=== PATIENT | female | born 1950 | race Caucasian/White ===

== ENCOUNTER → 2017-04-14 | Outpatient (CLI) | payer MEDICARE, BC | LOC: OD 10:05 | PROVIDERS: ATTEND Internal Medicine Nephrology | DX: E87.5 Hyperkalemia (principal) | CPT/HCPCS: 36415; 84132 ==

== ENCOUNTER → 2017-08-21 | Outpatient (CLI) | payer MEDICARE, BC ==
--- NOTE | 2017-08-22 18:20 | WOMENS IMAGING REPORT ---
EXAM DESCRIPTION: 3D SCREENING MAMMO BILAT COMPLETED DATE/TIME: 08/21/2017 8:49 am REASON FOR STUDY: ROUTINE SCREENING; Z12.31 Z12.31 ENCNTR SCREEN MAMMOGRAM FOR MALIGNANT NEOPLASM O F DARCY COMPARISON: Multiple since 2009 TECHNIQUE: Standard craniocaudal and mediolateral oblique views of each breast recorded using digita l acquisition and breast tomosynthesis. LIMITATIONS: None. FINDINGS: Findings present which are benign by mammographic criteria. No suspicious masses, calcifi cations or architectural distortion. Pertinent benign findings: Stable right intramammary lymph node upper outer quadrant, stable left darcy ast calcifications, benign Read with the assistance of CAD. .[facility] - R2 Cenova Version 1.3 .[facility] - R2 Cenova Version 1.3 .[facility] - R2 Cenova Version 2.4 .[facility] - R2 Cenova Version 2.4 .[facility] - R2 Head Cd Reactor Operator Version 9.2 Benign mammographic findings may include one or more of the following: Smooth masses, popcorn/rim/co arse calcifications, asymmetries, post-procedure changes, and lesions with long-standing stability. IMPRESSION: BENIGN MAMMOGRAPHIC FINDINGS. BIRADS 2 BREAST DENSITY: b. There are scattered areas of fibroglandular density. BIRAD: 2 BENIGN FINDING(S) RECOMMENDATION: RECOMMENDATION: ROUTINE SCREENING Please continue bilateral screening tomosynthesis in August 2018 COMMENT: The patient has been notified of the results by letter per SA requirements. Additional no tification policies are in place for contacting patient with suspicious or incomplete findings. Quality ID #[id number]: The [employer] recommends an annual screening mammogram for women aged 40 years or over. This facility utilizes a reminder system to ensure that all patients receive reminder letters, and/or direct phone calls for appointments. This includes reminders for routine scr eening mammograms, diagnostic mammograms, or other Breast Imaging Interventions when appropriate. Th is patient will be placed in the appropriate reminder system. The [employer] (ACR) has developed recommendations for screening MRI of the breast s in certain patient populations, to be used in conjunction with mammography. Breast MRI surveillanc e may be appropriate for women with more than 20% lifetime risk of developing breast cancer as deter mined by genetic testing, significant family history of the disease, or history of mantle radiation f or Hodgkins Disease. ACR Practice Guidelines 2008. DBT Technology DBT is a type of tomographic mammography. With conventional mammography, overlapping breast tissue ma y make lesions difficult to detect, even with good compression. DBT uses an x-ray tube that rotates a round the breast, taking images at different angles. These images are then combined to create thin sl ices of the breast that the radiologist can view as a 3D reconstruction. The Hologic unit can perform full-field digital mammograms (2D imaging); or DBT (3D imaging); or both, in a combination mode that quickly performs both the mammogram and the tomosynthesis scan while the breast is still compressed. PQRS 6045F: Fluoroscopic imaging is not utilized for breast tomosynthesis. TECHNICAL DOCUMENTATION: FINDING NUMBER: (1) ASSESSMENT: (1) JOB ID: [id number] [employer]- All Rights Reserved
== END ==
LOC: WI 08:00
PROVIDERS: ATTEND Physician Assistant
DX: Z12.31 Encounter for screening mammogram for malignant neoplasm of breast (principal)
CPT/HCPCS: 77063; 77067

== ENCOUNTER → 2018-08-24 | Outpatient (CLI) | payer MEDICARE, OTHER ==
--- NOTE | 2018-08-24 09:33 | WOMENS IMAGING REPORT ---
EXAM DESCRIPTION: BONE DENSITY HIP/SPINE COMPLETED DATE/TIME: 08/24/2018 9:09 am REASON FOR STUDY: ROUTINE 3D BILATERAL SCREENING,Z12.31, Z78.0 ASYMPTOMATIC MENOPAUSAL STATE Z12.31 ENCNTR SCREEN MAMMOGRAM FOR MALIGNANT NEOPLASM OF JAYRO Z78.0 ASYMPTOMATIC MENOPAUSAL STATE COMPARISON: None. TECHNIQUE: Dual-Energy X-ray Absorptiometry (DEXA) of the AP Spine and Hip. LIMITATIONS: None. FINDINGS: LUMBAR SPINE: The bone mineral density (BMD) measured from L1-L4 in the AP projection correlates with a T-score of 0.5, which is normal as defined by the World Health Organization. HIP: The bone mineral density (BMD) measured in the left hip correlates with a T-score of -1.6, which is o steopenia as defined by the World Health Organization. IMPRESSION: 1. LUMBAR SPINE: NORMAL. 2. HIP: OSTEOPENIA. COMMENT: The World Health Organization defines low BMD as follows: T-score: Normal: Greater than -1.0 Osteopenia: Between -1.0 and -2.5 Osteoporosis: Less than -2.5 without fractures Established osteoporosis: Less than -2.5 with fractures In general, you may wish to consider: Diagnosis Treatment Follow-up DEXA Normal BMD Prevention 2-3 years Osteopenia Prevention/Therapy 1-2 years Osteoporosis Therapy Yearly TECHNICAL DOCUMENTATION: JOB ID: [id number] [employer]- All Rights Reserved Reading location - IP/workstation name: [email or web address]
--- NOTE | 2018-08-24 11:04 | WOMENS IMAGING REPORT ---
EXAM DESCRIPTION: 3D SCREENING MAMMO BILAT COMPLETED DATE/TIME: 08/24/2018 9:09 am REASON FOR STUDY: ROUTINE 3D BILATERAL SCREENING,Z12.31 Z12.31 ENCNTR SCREEN MAMMOGRAM FOR MALIGNAN T NEOPLASM OF JAYRO Z78.0 ASYMPTOMATIC MENOPAUSAL STATE COMPARISON: [id number] TECHNIQUE: Standard craniocaudal and mediolateral oblique views of each breast recorded using digita l acquisition and breast tomosynthesis. LIMITATIONS: None. FINDINGS: No masses, calcifications or architectural distortion. No areas of suspicion. Read with the assistance of CAD. .[facility] - R2 Cenova Version 1.3 .[facility] - R2 Cenova Version 2.1 .[facility] - R2 Cenova Version 2.4 .[facility] [place] - R2 Cenova Version 2.4 .[facility] - R2 Senior Drupal Developer Version 9.2 IMPRESSION: NORMAL MAMMOGRAM. BIRADS 1. BREAST DENSITY: b. There are scattered areas of fibroglandular density. BIRAD: 1 NEGATIVE RECOMMENDATION: ROUTINE SCREENING COMMENT: The patient has been notified of the results by letter per SA requirements. Additional no tification policies are in place for contacting patient with suspicious or incomplete findings. Quality ID #[id number]: The [employer] recommends an annual screening mammogram for women aged 40 years or over. This facility utilizes a reminder system to ensure that all patients receive reminder letters, and/or direct phone calls for appointments. This includes reminders for routine scr eening mammograms, diagnostic mammograms, or other Breast Imaging Interventions when appropriate. Th is patient will be placed in the appropriate reminder system. The [employer] (ACR) has developed recommendations for screening MRI of the breast s in certain patient populations, to be used in conjunction with mammography. Breast MRI surveillanc e may be appropriate for women with more than 20% lifetime risk of developing breast cancer as deter mined by genetic testing, significant family history of the disease, or history of mantle radiation f or Hodgkins Disease. ACR Practice Guidelines 2008. DBT Technology DBT is a type of tomographic mammography. With conventional mammography, overlapping breast tissue ma y make lesions difficult to detect, even with good compression. DBT uses an x-ray tube that rotates a round the breast, taking images at different angles. These images are then combined to create thin sl ices of the breast that the radiologist can view as a 3D reconstruction. The Forseva unit can perform full-field digital mammograms (2D imaging); or DBT (3D imaging); or both, in a combination mode that quickly performs both the mammogram and the tomosynthesis scan while the breast is still compressed. PQRS 6045F: Fluoroscopic imaging is not utilized for breast tomosynthesis. TECHNICAL DOCUMENTATION: FINDING NUMBER: (1) ASSESSMENT: (1) JOB ID: [id number] [employer]- All Rights Reserved Reading location - IP/workstation name: [email or web address]
== END ==
LOC: WI 08:34
PROVIDERS: ATTEND Physician Assistant
DX: Z12.31 Encounter for screening mammogram for malignant neoplasm of breast (principal); Z78.0 Asymptomatic menopausal state; M85.88 Other specified disorders of bone density and structure, other site
CPT/HCPCS: 77063; 77067; 77080

== ENCOUNTER → 2019-07-22 | Outpatient (CLI) | payer MEDICARE, OTHER ==
--- NOTE | 2019-07-23 15:15 | XCELERA REPORT ---
[address] [address] Lower Extremity Arterial Evaluation Name: GUERO NOBLE Age: 69 yrs Gender: Female : 1950 Patient Status: Outpatient Patient Location: Study Date: 07/22/2019 02:49 PM Procedure: A color flow and duplex scan of the lower extremity arteries was performed bilaterally with velocity and waveform anaylsis. Ankle brachial indicies performed. Reason For Study: LT CALF ULCER Ordering Physician: CHIQUI SANTOS Performed By: Xavier Antoine Measurements and Calculations Right Left SLOT OPERATIONS DIRECTOR PSV 189.7 216.6 cm/sec Prox PFA PSV 124.3 110.6 cm/sec Prox SFA PSV 173.8 191.5 cm/sec Mid SFA PSV -117.3 -245.1cm/sec Dist SFA PSV -125.0 -232.4cm/sec Prox Pop A PSV 183.7 136.4 cm/sec Dist Pop A PSV -131.3 cm/sec Dist ROSA PSV 165.9 53.8 cm/sec Dist WEDDING CAKE DESIGNER PSV 157.1 -132.6cm/sec Rafael Pedis PSV 134.8 197.4 cm/sec Right Side Arterial Evaluation Normal velocity and triphasic waveforms noted from the Common Femoral artery to the Popliteal. Biphasic with normal velocity, moderate broadening in the infrageniculate arteries. Ankle Brachial index 1.19 in the Posterior Tibial, Non compressible Anterior Tibial. Left Side Arterial Evaluation Normal velocity and triphasic waveforms noted in the Common Femoral artery. Biphasic with high velocity, moderate broadening in the Femoral. Biphasic with normal velocity, moderate broadening in the infrageniculate arteries. Increased velocity in the Dorsalis Pedis. Ankle Brachial index non compressible. Interpretation Summary Moderate hemodynamically significant lesions in the bilateral lower extremities, on duplex imaging, at rest. Duplex study on the right is normal to the Popliteal, with moderate changes distally. Duplex study on the left is normal proximally, then stenosis probable in the Femoral,, with moderate changes distally. ASHANTI non compressibility suggests vessels wall stiffness due to calcification and or atherosclerosis. : CHIQUI SANTOS > Emerson Perera
== END ==
LOC: SP 14:15
PROVIDERS: ATTEND Nurse Practitioner Family
DX: L97.222 Non-pressure chronic ulcer of left calf with fat layer exposed (principal)
CPT/HCPCS: 93922; 93925

== ENCOUNTER → 2019-08-27 | Outpatient (CLI) | payer MEDICARE, OTHER ==
--- NOTE | 2019-08-27 09:58 | RADIOLOGY REPORT (SQ) ---
EXAM DESCRIPTION: TIBIA FIBULA LEFT COMPLETED DATE/TIME: 08/27/2019 9:40 am REASON FOR STUDY: NON-PRESSURE CHRONIC ULCER OF LEFT CALF W FAT LAYER EXPOSED L97.222 NON-PRESSURE CHRONIC ULCER OF LEFT CALF W FAT LAYER I87.312 CHRONIC VENOUS HYPERTENSION W ULCER OF L LOW EXTREM COMPARISON: None. NUMBER OF VIEWS: Two views. TECHNIQUE: AP and lateral views of the left tibia and fibula were obtained. LIMITATIONS: None. FINDINGS: MINERALIZATION: Normal. BONES: No acute fracture or erosion. SOFT TISSUES: Mild diffuse soft tissue swelling with bandage material anterior to the mid tibia. OTHER: Vascular calcifications. IMPRESSION: No acute osseous abnormality of the left tibia and fibula. TECHNICAL DOCUMENTATION: JOB ID: [id number] [employer]- All Rights Reserved Reading location - IP/workstation name: [email or web address]
[2019-08-27 10:22] LABS: ABSOLUTE EOSINOPHILS # (AUTO) 0.3 10^3/uL (0.0-0.6); ABSOLUTE LYMPHOCYTES (AUTO) 1.7 10^3/uL (0.5-4.7); ABSOLUTE MONOCYTES (AUTO) 0.5 10^3/uL (0.1-1.4); ABSOLUTE NEUT (AUTO) 4.3 10^3/uL (1.7-8.2); BASOPHILS % (AUTO) 0.3 % (0-2); EOSINOPHILS % (AUTO) 3.7 % (0-6); HEMATOCRIT 37.3 % (36.0-47.0); HEMOGLOBIN 12.5 g/dL (12.0-15.5); LYMPHOCYTES % (AUTO) 25.8 % (13-45); MEAN CORPUSCULAR HEMOGLOBIN 31.1 pg (27.0-33.4); MEAN CORPUSCULAR HGB CONC 33.5 g/dL (32.0-36.0); MEAN CORPUSCULAR VOLUME 93 fl (80-97); MONOCYTES % (AUTO) 6.9 % (3-13); PLATELET COUNT 332 10^3/uL (150-450); RED BLOOD COUNT 4.02 10^6/uL (3.72-5.28); RED CELL DISTRIBUTION WIDTH 14.9 % (11.5-14.0); SEGMENTED NEUTROPHILS % (AUTO) 63.3 % (42-78); TOTAL CELLS COUNTED % (AUTO) 100 %; WHITE BLOOD COUNT 6.7 10^3/uL (4.0-10.5)
[2019-08-27 10:50] LABS: ALKALINE PHOSPHATASE 61 U/L (38-126); ANION GAP 8 (5-19); ASPARTATE AMINO TRANSFERASE 32 U/L (14-36); BILIRUBIN,DIRECT 0.3 mg/dL (0.0-0.4); BILIRUBIN,TOTAL 0.4 mg/dL (0.2-1.3); BLOOD UREA NITROGEN 55 mg/dL (7-20); CALCIUM 9.5 mg/dL (8.4-10.2); CARBON DIOXIDE 32 mmol/L (22-30); CHLORIDE 99 mmol/L (98-107); GLUCOSE 155 mg/dL (75-110); POTASSIUM 5.3 mmol/L (3.6-5.0); TOTAL PROTEIN 7.4 g/dL (6.3-8.2)
[2019-08-27 10:58] LABS: C-REACTIVE PROTEIN < 5.0 mg/L (<10.0)
[2019-08-27 11:47] LABS: ERYTHROCYTE SEDIMENTATION RATE 50 mm/hr (0-30)
== END ==
LOC: WC 09:19
PROVIDERS: ATTEND Nurse Practitioner Family
DX: I87.312 Chronic venous hypertension (idiopathic) with ulcer of left lower extremity (principal); L97.222 Non-pressure chronic ulcer of left calf with fat layer exposed
CPT/HCPCS: 36415; 80053; 85025; 85652; 86140

== ENCOUNTER → 2020-02-09 | Outpatient (CLI) | payer MEDICARE, BC, OTHER ==
[2020-02-09 08:20] LABS: ABSOLUTE EOSINOPHILS # (AUTO) 0.2 10^3/uL (0.0-0.6); ABSOLUTE LYMPHOCYTES (AUTO) 1.6 10^3/uL (0.5-4.7); ABSOLUTE MONOCYTES (AUTO) 0.5 10^3/uL (0.1-1.4); ABSOLUTE NEUT (AUTO) 4.3 10^3/uL (1.7-8.2); BASOPHILS % (AUTO) 0.5 % (0-2); EOSINOPHILS % (AUTO) 3.5 % (0-6); HEMATOCRIT 36.8 % (36.0-47.0); HEMOGLOBIN 12.4 g/dL (12.0-15.5); MEAN CORPUSCULAR HEMOGLOBIN 30.9 pg (27.0-33.4); MEAN CORPUSCULAR HGB CONC 33.8 g/dL (32.0-36.0); MEAN CORPUSCULAR VOLUME 91 fl (80-97); MONOCYTES % (AUTO) 7.5 % (3-13); PLATELET COUNT 317 10^3/uL (150-450); RED BLOOD COUNT 4.03 10^6/uL (3.72-5.28); RED CELL DISTRIBUTION WIDTH 15.1 % (11.5-14.0); SEGMENTED NEUTROPHILS % (AUTO) 64.5 % (42-78); TOTAL CELLS COUNTED % (AUTO) 100 %; WHITE BLOOD COUNT 6.6 10^3/uL (4.0-10.5)
[2020-02-09 08:32] LABS: ALBUMIN 3.8 g/dL (3.5-5.0); ALKALINE PHOSPHATASE 61 U/L (38-126); ANION GAP 6 (5-19); ASPARTATE AMINO TRANSFERASE 27 U/L (14-36); BILIRUBIN,TOTAL 0.3 mg/dL (0.2-1.3); BLOOD UREA NITROGEN 70 mg/dL (7-20); C-REACTIVE PROTEIN 6.9 mg/L (<10.0); CALCIUM 9.7 mg/dL (8.4-10.2); CARBON DIOXIDE 31 mmol/L (22-30); CHLORIDE 100 mmol/L (98-107); GLUCOSE 143 mg/dL (75-110); TOTAL PROTEIN 6.9 g/dL (6.3-8.2)
[2020-02-09 08:58] LABS: ERYTHROCYTE SEDIMENTATION RATE 47 mm/hr (0-30)
== END ==
LOC: WC 07:28
PROVIDERS: ATTEND Nurse Practitioner Family
DX: I87.312 Chronic venous hypertension (idiopathic) with ulcer of left lower extremity (principal); L97.212 Non-pressure chronic ulcer of right calf with fat layer exposed
CPT/HCPCS: 36415; 80053; 85025; 85652; 86140

== ENCOUNTER 2020-03-19 17:12 | Emergency (ER) | payer MEDICARE, BC, OTHER ==
[2020-03-19 18:06] LABS: ABSOLUTE EOSINOPHILS # (AUTO) 0.2 10^3/uL (0.0-0.6); ABSOLUTE LYMPHOCYTES (AUTO) 1.4 10^3/uL (0.5-4.7); ABSOLUTE MONOCYTES (AUTO) 0.6 10^3/uL (0.1-1.4); ABSOLUTE NEUT (AUTO) 4.9 10^3/uL (1.7-8.2); BASOPHILS % (AUTO) 0.2 % (0-2); HEMATOCRIT 38.7 % (36.0-47.0); HEMOGLOBIN 12.9 g/dL (12.0-15.5); LYMPHOCYTES % (AUTO) 19.6 % (13-45); MEAN CORPUSCULAR HEMOGLOBIN 30.6 pg (27.0-33.4); MEAN CORPUSCULAR HGB CONC 33.4 g/dL (32.0-36.0); MEAN CORPUSCULAR VOLUME 92 fl (80-97); MONOCYTES % (AUTO) 8.4 % (3-13); PLATELET COUNT 311 10^3/uL (150-450); RED BLOOD COUNT 4.22 10^6/uL (3.72-5.28); RED CELL DISTRIBUTION WIDTH 14.9 % (11.5-14.0); SEGMENTED NEUTROPHILS % (AUTO) 68.8 % (42-78); TOTAL CELLS COUNTED % (AUTO) 100 %; WHITE BLOOD COUNT 7.2 10^3/uL (4.0-10.5)
[2020-03-19 18:21] LABS: ALBUMIN 4.1 g/dL (3.5-5.0); ALKALINE PHOSPHATASE 68 U/L (38-126); ANION GAP 7 (5-19); ASPARTATE AMINO TRANSFERASE 36 U/L (14-36); BILIRUBIN,DIRECT 0.3 mg/dL (0.0-0.4); BILIRUBIN,TOTAL 0.4 mg/dL (0.2-1.3); BLOOD UREA NITROGEN 50 mg/dL (7-20); CALCIUM 9.6 mg/dL (8.4-10.2); CARBON DIOXIDE 34 mmol/L (22-30); CHLORIDE 100 mmol/L (98-107); CREATINE KINASE 133 U/L (30-135); GLUCOSE 128 mg/dL (75-110); POTASSIUM 4.6 mmol/L (3.6-5.0); TOTAL PROTEIN 7.3 g/dL (6.3-8.2)
[2020-03-19 18:31] LABS: INTERNATIONAL RATION (INR) 1.02; PROTHROMBIN TIME 13.6 SEC (11.4-15.4)
[2020-03-19 18:32] LABS: CREATINE KINASE MB 5.59 ng/mL (<4.55)
[2020-03-19 18:35] LABS: TROPONIN I < 0.012 ng/mL
[2020-03-19 18:40] LABS: VENOUS BLOOD BASE EXCESS 2.6 mmol/L; VENOUS BLOOD HCO3 30.4 mmol/L (20-32); VENOUS BLOOD PCO2 61.1 mmHg (35-63); VENOUS BLOOD PH 7.31 (7.30-7.42)
[2020-03-19] MEDS ORDERED: DEXTROSE 50%-WATER 25 GM/50 ML DISP.SYRIN IV ONE (20:28)
--- NOTE | 2020-03-19 21:59 | EKG REPORT ---
SEVERITY:- NORMAL ECG - SINUS RHYTHM : Confirmed by: Alexis Eddy MD 19-Mar-2020 21:58:59
--- NOTE | 2020-03-19 23:10 | ER Document Report ---
ED General - General Chief Complaint: Anxiety Stated Complaint: PSYCH Time Seen by Provider: 03/19/20 18:15 Primary Care Provider: JOSE FARAH MD [Primary Care Provider] - Follow up as needed Mode of Arrival: Medic Information source: Patient Notes: 70-year-old woman presents to the emergency department with complaint of feeling like she is out of her body and tingling in her extremities. She is diabetic, family assumed that she had a low blood sugar, she was given 3 glucose tablets and some juice. Patient presents to the ER noted to have a low temperature and a blood sugar in the 130 range. Patient denies having any preceding symptoms or illness. Her medications have been adjusted as her doctor has added Victoza twice daily to her insulin regimen. The patient also notes that she had not eaten since breakfast prior to the onset of symptoms. Denies chest pain or stroke symptoms. She is placed on a warming blanket while labs EKG are being performed. TRAVEL OUTSIDE OF THE [place] IN LAST 30 DAYS: No - Related Data Allergies/Adverse Reactions: CHRISTOPHER Inhibitors [Christopher Inhibitors] Allergy (Severe, Verified 05/21/16 16:15) doxycycline [Doxycycline] Allergy (Severe, Verified 05/21/16 16:15) Past Medical History - Social History Smoking Status: Never Smoker Family History: Reviewed & Not Pertinent, DM, Hypertension, Thyroid Disfunction Patient has homicidal ideation: No - Past Medical History Cardiac Medical History: Reports: Hx Hypercholesterolemia, Hx Hypertension Pulmonary Medical History: Denies: Hx Tuberculosis Neurological Medical History: Denies: Hx Seizures Endocrine Medical History: Reports: Hx Diabetes Mellitus Type 2, Hx Hypothyro idism Renal/ Medical History: Reports: Hx End Stage Renal Disease - stg 3, Hx Renal Insufficiency Psychiatric Medical History: Denies: Hx Depression Past Surgical History: Reports: Hx Abdominal Surgery, Hx Orthopedic Surgery, Hx Tonsillectomy, Other - Right nephrectomy secondary to renal cell carcinoma in 1998. Denies: Hx Pacemaker - Immunizations Hx Diphtheria, Pertussis, Tetanus Vaccination: No - 15 years ago Hx Pneumococcal Vaccination: 12/12/08 Review of Systems - Review of Systems Notes: Constitutional: Negative for fever. HENT: Negative for sore throat. Eyes: Negative for visual changes. Cardiovascular: Negative for chest pain. Respiratory: Negative for shortness of breath. Gastrointestinal: Negative for abdominal pain, vomiting or diarrhea. Genitourinary: Negative for dysuria. Musculoskeletal: Negative for back pain. Skin: Negative for rash. Neurological: See HPI 10 point ROS negative except as marked above and in HPI. Physical Exam - Vital signs Vitals: Temp Pulse Resp BP Pulse Ox 94 F L 67 18 175/70 H 97 03/19/20 17:28 03/19/20 17:28 03/19/20 17:28 03/19/20 17:28 03/19/20 17:28 - Notes Notes: PHYSICAL EXAMINATION: Physical Exam: General: An overweight alert responsive 70-year-old woman no acute distress HEENT: NC/AT, pupils equal round and reactive to light, MM moist,nares clear, oropharynx clear, airway patent Neck: supple, no adenopathy, no masses. Good range of motion Lungs: clear, no wheezing, no rales no rhonchi CVS: Regular rate and rhythm no murmur gallop or rub Abdomen: Soft, active, nontender, no masses, no hepatosplenomegaly Ext: No edema, clubbing or cyanosis. Neuro: Alert and responsive, moving all 4 extremities on command, cranial nerves intact, no focal findings Skin: Intact no open lesions, no rash Course - Re-evaluation Re-evalutation: 03/19/20 23:13 The patient's temperature responded well to the warming blanket, back to a normal body temperature. Lab review notes no acute findings with chronic renal failure. No other acute findings. EKG normal sinus rhythm without acute ST or T wave abnormalities. Discussed the episode with the patient and her daughter noting that her increased diabetes regimen may have caused a decrease in the blood sugar especially given the lack of eating. I have suggested she each meal and then have a snack in between meals she is to also contact her primary physician on Friday regarding an adjustment in her insulin dose if needed. - Vital Signs Vital signs: Temp Pulse Resp BP Pulse Ox 98.0 F 67 24 H 175/60 H 92 03/19/20 21:02 03/19/20 17:28 03/19/20 22:31 03/19/20 22:31 03/19/20 22:31 - Laboratory Result Diagrams: 03/19/20 17:47 03/19/20 17:47 Laboratory results interpreted by me: 03/19/20 03/19/20 03/19/20 17:47 17:47 17:47 RDW 14.9 H Carbon Dioxide 34 H BUN 50 H Creatinine 2.39 H Est GFR ( Amer) 24 L Est GFR (MDRD) Non-Af 20 L Glucose 128 H POC Glucose CK-MB (CK-2) 5.59 H 03/19/20 21:27 RDW Carbon Dioxide BUN Creatinine Est GFR ( Amer) Est GFR (MDRD) Non-Af Glucose POC Glucose 283 H CK-MB (CK-2) 03/19/20 23:18 I have reviewed laboratory data and used this information for the treatment decisions regarding the patient. - EKG Interpretation by Me EKG shows normal: Sinus rhythm - EKG interpreted by Dr. Ellis: Normal sinus rhythm, rate 69, QT interval normal, normal axis, no acute ST or T wave abnormalities, no ischemic findings, compared to EKG 05/19/2016 there is no interval changes noted.. Discharge - Discharge Clinical Impression: Hypoglycemia, Obesity (BMI 30-39.9), CKD (chronic kidney disease), stage IV Hypothermia Qualifiers: Encounter type: initial encounter Qualified Code(s): T68.XXXA - Hypothermia, initial encounter Condition: Good Disposition: HOME, SELF-CARE Instructions: Hypoglycemia ([facility]) Additional Instructions: You were seen in the emergency department today with symptoms of hypoglycemia. Please hold your insulin dose tonight and resume your normal regimen tomorrow based on your a.m. glucose. You are encouraged to eat your normal meals with a snack in between and on Friday contact your regular physician regarding this hypoglycemic episode. If you have further difficulties or concerns you may return to the emergency department for a reevaluation. HOME CARE INSTRUCTIONS & INFORMATION: Thank you for choosing us for your medical needs. We hope you're satisfied with the care you received. After you leave, you must properly care for your problem and, at the same time, observe its progress. Any condition can change. Some illnesses can change rapidly over hours or days. If your condition worsens, return to the Emergency Department or see your physician promptly. ABOUT YOUR X-RAYS AND EKG'S: If you had an EKG or X-rays taken, they have been read by the Emergency Physician. The X-rays and EKG's will also be read by a Radiologist or Survey Chief within 24 hours. If discrepancies are noted, you will be notified by telephone. Please be certain the ED has a correct telephone number & address where you can be reached. Also, realize that some fractures or abnormalities do not show up on initial X-rays. If your symptoms continue, see your physician. ABOUT YOUR LABORATORY TEST: If you had laboratory tests, the results have been reviewed by the Emergency Physician. Some test results (for example cultures) may not be available for several days. You will be contacted if any test result shows you need additional treatment. Please be certain the ED has a correct telephone number and address where you can be reached. ABOUT YOUR MEDICATIONS: You will receive instructions on how to take your medicine on the prescription label you receive. Additional information may be provided by the Pharmacy. If you have questions afterwards, call the ED for clarification or further instructions. Some prescribed medications may cause drowsiness. Do not perform tasks such as driving a car or operating machinery without consulting your Pharmacist. If you feel you need a refill of pain medication, your condition will need re-evaluation. Please do not call for a refill of any medication. ABOUT YOUR SIGNATURE: Signature of this document acknowledges to followin. Understanding that you received emergency treatment and that you may be released before al medical problems are known or treated. Please be certain the ED has a correct phone number & address where you can be reached. 2. Acknowledgement that you will arrange for follow-up care as recommended. 3. Authorization for the Emergency Physician to provide information to your follow-up Physician in order to maximize your care. AT ANY TIME, IF YOUR SYMPTOMS CHANGE SIGNIFICANTLY OR WORSEN OR YOU DEVELOP NEW SYMPTOMS, RETURN TO THE EMERGENCY DEPARTMENT IMMEDIATELY FOR RE-EVALUATION. OUR GOAL IS TO PROVIDE EXCELLENT MEDICAL CARE! WE HOPE THAT WE HAVE MET YOUR EXPECTATIONS DURING YOUR EMERGENCY DEPARTMENT VIS IT AND THAT YOU FEEL YOU HAVE RECEIVED EXCELLENT CARE! Referrals: JOSE FARAH MD [Primary Care Provider] - Follow up as needed
[2020-03-19 23:22] VITALS: BP 190/88
== END 2020-03-19 23:29 | disposition home or self-care (01) ==
LOC: ER 17:12
DX: E11.649 Type 2 diabetes mellitus with hypoglycemia without coma (principal); Z79.4 Long term (current) use of insulin; T68.XXXA Hypothermia, initial encounter; X58.XXXA Exposure to other specified factors, initial encounter; E66.9 Obesity, unspecified; I12.9 Hypertensive chronic kidney disease with stage 1 through stage 4 chronic kidney disease, or unspecified chronic kidney disease; E11.22 Type 2 diabetes mellitus with diabetic chronic kidney disease; N18.4 Chronic kidney disease, stage 4 (severe); Z88.8 Allergy status to other drugs, medicaments and biological substances; Z88.1 Allergy status to other antibiotic agents
CPT/HCPCS: 93005; 99284; 96374; 36415; 87040; 82553; 82962; 82550; 83605; 85025; 85610; 80053; 84484; 82803; 93010; J3490

== ENCOUNTER 2020-04-14 23:02 | Inpatient (IN) | payer MEDICARE, BC, OTHER ==
--- NOTE | 2020-04-14 23:53 | ER Document Report ---
ED Cardiac - General Chief Complaint: Chest Pain Stated Complaint: CHEST PAIN Time Seen by Provider: 04/14/20 23:47 Primary Care Provider: JOSE FARAH MD [Primary Care Provider] - Follow up as needed Notes: Patient is a 70-year-old female with a history of diabetes, CHF, chronic kidney disease, and hypertension who presents emergency department with a chief complaint of chest pain and shortness of breath that started around 630 this morning. Patient states that she has been taking her medications as prescribed. States that it feels like someone is sitting on her chest. Patient received nitroglycerin via EMS and states that the pain is better. She also received anxiety medication. Patient has history of anxiety. Patient family deny any contact with anyone who has tested positive COVID-19. 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 Daughter also states that she has chronic sinusitis. TRAVEL OUTSIDE OF THE [place] IN LAST 30 DAYS: No - Related Data Allergies/Adverse Reactions: CHRISTOPHER Inhibitors [Christopher Inhibitors] Allergy (Severe, Verified 05/21/16 16:15) doxycycline [Doxycycline] Allergy (Severe, Verified 05/21/16 16:15) Past Medical History - Social History Smoking Status: Current Every Day Smoker Family History: Reviewed & Not Pertinent, DM, Hypertension, Thyroid Disfunction - Past Medical History Cardiac Medical History: Reports: Hx Hypercholesterolemia, Hx Hypertension Pulmonary Medical History: Denies: Hx Tuberculosis Neurological Medical History: Denies: Hx Seizures Endocrine Medical History: Reports: Hx Diabetes Mellitus Type 2, Hx Hypothyroidism Renal/ Medical History: Reports: Hx End Stage Renal Disease - stg 3, Hx Renal Insufficiency Psychiatric Medical History: Denies: Hx Depression Past Surgical History: Reports: Hx Abdominal Surgery, Hx Orthopedic Surgery, Hx Tonsillectomy, Other - Right nephrectomy secondary to renal cell carcinoma in 1998. Denies: Hx Pacemaker - Immunizations Hx Diphtheria, Pertussis, Tetanus Vaccination: No - 15 years ago Hx Pneumococcal Vaccination: 12/12/08 Review of Systems - Review of Systems Notes: REVIEW OF SYSTEMS: CONSTITUTIONAL : Denies recent illness. Denies recent unintentional weight loss. Denies fever, chills, or sweats. EENT: Denies eye, ear, throat, or mouth pain, discharge, or symptoms. Denies nasal or sinus congestion. CARDIOVASCULAR: See HPI. RESPIRATORY: See HPI. GASTROINTESTINAL: Denies nausea, vomiting, and diarrhea. Denies abdominal pain. Denies constipation. GENITOURINARY: Denies difficulty urinating, burning, blood in urine, urgency or frequency. MUSCULOSKELETAL: Denies neck and back pain. Denies joint pain or swelling. SKIN: Denies rash, itchiness, or lesions HEMATOLOGIC : Denies easy bruising or bleeding. LYMPHATIC: Denies swollen, painful, enlarged glands. NEUROLOGICAL: Denies no numbness or tingling denies weakness. Denies headache. Denies altered mental status. Denies alteration in speech. PSYCHIATRIC: Denies stress, anxiety, alteration in sleep patterns, or depression. All other systems reviewed and negative. Physical Exam - Vital signs Vitals: Resp BP Pulse Ox 27 H 162/56 H 89 L 04/14/20 23:19 04/14/20 23:19 04/14/20 23:19 - Notes Notes: PHYSICAL EXAMINATION: GENERAL: Appears obese, no acute distress. HEAD: Normocephalic, atraumatic. EYES: PERRL, conjunctiva normal, all extraocular movements intact, sclera nonicteric ENT: Moist mucous membranes. NECK: Supple, no noticeable swelling, redness, rash. Normal range of motion. LUNGS: Diminished breath sounds in the bases. Slightly tachypneic CARDIOVASCULAR: S1-S2, regular rate, regular rhythm. Radial pulses 2+, normal. ABDOMEN: Normoactive bowel sounds. Soft, nontender, no guarding, no rebound tenderness, and no masses palpated. EXTREMITIES: Normal strength and range of motion, no pitting or edema. No cyanosis. NEUROLOGICAL: Moves all extremities upon command. Strength 5/5 in all extremities. PSYCH: Normal mood, normal affect. SKIN: Warm, dry. No rash, lesions, ulcerations noted. Normal skin turgor. Course - Re-evaluation Re-evalutation: 04/15/20 00:38 Daughter reported to the nurses that the patient has been "talking out of her head." Daughter reports that patient had a possible urinary tract infection. We will send patient for CT of the head and will also send for urinalysis via straight cath. 04/15/20 03:25 Hematology is unremarkable other than a slight anemia with a hemoglobin of 11.7 hematocrit of 34.4. Blood gas showed that her PO2 was 71 on room air and her CO2 was 27.8. Chemistries show a creatinine of 1.96, which is her normal. BNP is elevated, consistent with a CHF exacerbation. Urinalysis is unremarkable. CT of the head shows sinus. Will place patient on Augmentin. Clarified with the daughter that the bleed behind her eye is an old bleed. Called Dr. Moore for admission. Will await callback. - Vital Signs Vital signs: Temp Pulse Resp BP Pulse Ox 98.3 F 72 29 H 143/50 H 95 04/15/20 03:22 04/15/20 03:22 04/15/20 03:22 04/15/20 03:22 04/15/20 03:22 - Laboratory Result Diagrams: 04/15/20 00:01 04/15/20 00:01 Laboratory results interpreted by me: 04/15/20 04/15/20 04/15/20 00:01 00:01 00:01 Hgb 11.7 L Hct 34.4 L RDW 15.0 H ABG pO2 ABG HCO3 ABG Total CO2 Sodium 134.7 L Carbon Dioxide 31 H BUN 47 H Creatinine 1.96 H Est GFR ( Amer) 31 L Est GFR (MDRD) Non-Af 25 L Glucose 265 H NT-Pro-B Natriuret Pep 1020 H Urine Protein Urine Glucose (UA) 04/15/20 04/15/20 01:00 01:40 Hgb Hct RDW ABG pO2 71.8 L ABG HCO3 26.5 H ABG Total CO2 27.8 H Sodium Carbon Dioxide BUN Creatinine Est GFR ( Amer) Est GFR (MDRD) Non-Af Glucose NT-Pro-B Natriuret Pep Urine Protein 30 H Urine Glucose (UA) >=500 H Discharge - Discharge Clinical Impression: Shortness of breath, Hypoxia CHF exacerbation Qualifiers: Heart failure type: unspecified Qualified Code(s): I50.9 - Heart failure, unspecified Sinusitis Qualifiers: Sinusitis location: unspecified location Chronicity: chronic Qualified Code(s): J32.9 - Chronic sinusitis, unspecified Condition: Stable Disposition: ADMITTED INPATIENT Admitting Provider: Oscar (Hospitalist) Unit Admitted: Telemetry Referrals: JOSE FARAH MD [Primary Care Provider] - Follow up as needed
[2020-04-15 00:19] LABS: ABSOLUTE EOSINOPHILS # (AUTO) 0.2 10^3/uL (0.0-0.6); ABSOLUTE LYMPHOCYTES (AUTO) 1.6 10^3/uL (0.5-4.7); ABSOLUTE MONOCYTES (AUTO) 0.6 10^3/uL (0.1-1.4); BASOPHILS % (AUTO) 0.6 % (0-2); EOSINOPHILS % (AUTO) 2.5 % (0-6); HEMATOCRIT 34.4 % (36.0-47.0); HEMOGLOBIN 11.7 g/dL (12.0-15.5); MEAN CORPUSCULAR HEMOGLOBIN 31.2 pg (27.0-33.4); MEAN CORPUSCULAR VOLUME 92 fl (80-97); MONOCYTES % (AUTO) 6.8 % (3-13); RED BLOOD COUNT 3.75 10^6/uL (3.72-5.28); SEGMENTED NEUTROPHILS % (AUTO) 71.1 % (42-78); TOTAL CELLS COUNTED % (AUTO) 100 %; WHITE BLOOD COUNT 8.5 10^3/uL (4.0-10.5)
[2020-04-15 00:36] LABS: ALBUMIN 3.5 g/dL (3.5-5.0); ALKALINE PHOSPHATASE 72 U/L (38-126); ANION GAP 6 (5-19); ASPARTATE AMINO TRANSFERASE 27 U/L (14-36); BILIRUBIN,DIRECT 0.3 mg/dL (0.0-0.4); BILIRUBIN,TOTAL 0.4 mg/dL (0.2-1.3); BLOOD UREA NITROGEN 47 mg/dL (7-20); CARBON DIOXIDE 31 mmol/L (22-30); CHLORIDE 98 mmol/L (98-107); CREATINE KINASE 114 U/L (30-135); GLUCOSE 265 mg/dL (75-110); NEONATAL BILIRUBIN RESULT 0.1 mg/dL (0.1-1.1); TOTAL PROTEIN 6.3 g/dL (6.3-8.2)
[2020-04-15 00:40] LABS: PLATELET COUNT 232 10^3/uL (150-450)
[2020-04-15 01:19] LABS: APPEARANCE,URINE CLEAR; BILIRUBIN,URINE NEGATIVE (NEGATIVE); COLOR,URINE STRAW; GLUCOSE, URINE >=500 mg/dL (NEGATIVE); KETONES,URINE NEGATIVE (NEGATIVE); PROTEIN,URINE 30 mg/dL (NEGATIVE); URINE SPECIFIC GRAVITY 1.007; UROBILINOGEN,URINE NEGATIVE mg/dL (<2.0)
[2020-04-15] MEDS ORDERED: BUMETANIDE INJ/PF 1 MG/4 ML SDV IV ONE (01:35)
[2020-04-15 01:47] LABS: ARTERIAL BLOOD BASE EXCESS 1.6 mmol/L; ARTERIAL BLOOD HCO3 26.5 mmol/L (20-24); ARTERIAL BLOOD O2 SATURATION 94.5 % (94-98); ARTERIAL BLOOD PCO2 43.2 mmHg (35-45); ARTERIAL BLOOD PH 7.41 (7.35-7.45); ARTERIAL BLOOD PO2 71.8 mmHg (80-100); ARTERIAL BLOOD TOTAL CO2 27.8 mmol/L (21-25)
[2020-04-15 01:48] LABS: ARTERIAL BLOOD FIO2 ROOM AIR
--- NOTE | 2020-04-15 03:03 | RADIOLOGY REPORT (SQ) ---
CLINICAL HISTORY: AMS COMPARISON: None. TECHNIQUE: CT HEAD WITHOUT IV CONTRAST on 04/15/2020 12:35 AM CDT This exam was performed according to our departmental dose-optimization program, which includes automated exposure control, adjustment of the mA and/or kV according to patient size and/or use of iterative reconstruction technique. FINDINGS: There is no acute hemorrhage, mass effect or midline shift. Bell-white differentiation is preserved. There is no hydrocephalus. There is no significant volume loss for age. The calvarium is intact. There is hyperdense appearance of the left globe. Bilateral maxillary sinus is opacified. Left sphenoid sinus is opacified. Anterior ethmoid air cells are opacified. Right frontal sinus is opacified. Mastoid air cells are clear. IMPRESSION: No acute intracranial findings. Hyperdense appearance of much of the left globe. Underlying hemorrhage is not excluded.
[2020-04-15] MEDS ORDERED: AMOXICILLIN TR/POT CLAVULANATE 875-125 MG TAB PO ONE (03:23)
[2020-04-15] MEDS ORDERED: MAGNESIUM HYDROXIDE SUSP 30 ML UDCUP PO PRN (04:56)
[2020-04-15] MEDS ORDERED: MAG HYDROX/AL HYDROX/SIMETH SUSP 30 ML UDCUP PO PRN (04:56)
[2020-04-15] MEDS ORDERED: ONDANSETRON HCL INJ/PF 4 MG/2 ML SDV IV PRN (04:56)
[2020-04-15] MEDS ORDERED: LORAZEPAM INJ 2 MG/1 ML VIAL IV PRN (05:02)
[2020-04-15] MEDS ORDERED: HYDRALAZINE HCL INJ/PF 20 MG/1 ML SDV IV PRN (05:02)
[2020-04-15] MEDS ORDERED: GUAIFENESIN SYRP 200 MG/10 ML UDC PO PRN (05:02)
[2020-04-15] MEDS ORDERED: METOPROLOL TARTRATE PF/INJ 5 MG/5 ML SDV IV PRN (05:02)
[2020-04-15] MEDS ORDERED: MORPHINE SULFATE 10 MG/ML INJ IV PRN (05:02)
[2020-04-15] MEDS ORDERED: ACETAMINOPHEN 325 MG TABLET PO PRN (05:02)
[2020-04-15] MEDS ORDERED: MELATONIN 5 MG TABLET PO PRN (05:02)
[2020-04-15] MEDS ORDERED: DEXTROSE 50%-WATER 25 GM/50 ML DISP.SYRIN IV PRN ×2 (05:03)
[2020-04-15] MEDS ORDERED: GLUCAGON,HUMAN RECOMB 1 MG INJ IM PRN (05:03)
[2020-04-15] MEDS ORDERED: DEXTROSE 40% GEL 15 GM TUBE PO PRN ×2 (05:03)
[2020-04-15] MEDS ORDERED: NITROGLYCERIN 2% OINTMENT 1 GM PACKET TP SCH (06:00)
[2020-04-15] MEDS: PANTOPRAZOLE SODIUM 40 MG TABLET.DR PO SCH (06:13)
[2020-04-15] MEDS: HEPARIN SOD (PORCINE) 5,000 UNIT/ML 1 ML VIAL SUBCUT SCH ×3 (06:14→22:12)
--- NOTE | 2020-04-15 06:25 | PDOC H&P ---
History of Present Illness Admission Date/PCP: 04/15/20 03:51 JOSE FARAH MD Patient complains of: Dyspnea History of Present Illness: GUERO NOBLE is a 70 year old female presents the emergency room with a 1 day history of dyspnea. The patient has mild vascular dementia and relies on her daughter to aid her in providing history. On 04/14/2020 the patient woke at 6:30 AM with dyspnea and moderate central chest heaviness which persisted off and on during the day and became more intense during the evening prompting her call to EMS. Patient was treated by EMS with an anxiolytic as well as being provided aspirin, oxygen and sublingual nitroglycerin with marked improvement in her symptoms becoming asymptomatic on arrival in the ER. Patient's cardiac enzymes and EKG showed no evidence of myocardial ischemia or injury. Her BNP was elevated without prior reference point. She was noted to be hypoxic on room air and required supplemental oxygen for correction. She was subsequently admitted to the hospital for further evaluation and treatment. Past Medical History Cardiac Medical History: Reports: Hyperlipidema, Hypertension Denies: Atrial Fibrillation, Coronary Artery Disease, DVT, Myocardial Infarction, Pulmonary Embolism Pulmonary Medical History: Denies: Asthma, Chronic Obstructive Pulmonary Disease (COPD), Respiratory Failure, Tuberculosis EENT Medical History: Reports: Other - Chronic sinusitis Denies: Ears - Hearing aids Neurological Medical History: Reports: Ischemic CVA Denies: Hemorrhagic CVA, Seizures Endocrine Medical History: Reports: Diabetes Mellitus Type 2, Hypothyroidism, Obesity Denies: Diabetes Mellitus Type 1, Hyperthyroidism Renal/ Medical History: Reports: Chronic Kidney Disease Denies: Nephrolithiasis Malignancy Medical History: Reports: Renal (Kidney) Cancer GI Medical History: Denies: Cirrhosis, Hepatitis Musculoskeltal Medical History: Denies: Fibromyalgia, Gout Skin Medical History: Denies: Eczema, Psoriasis Psychiatric Medical History: Reports: Dementia, General Anxiety Disorder Denies: Alcohol Dependency, Depression, Substance Abuse, Tobacco Dependency Traumatic Medical History: Reports: None Hematology: Reports: Anemia - Chronic due to renal failure Denies: Bleeding Tendencies Infectious Medical History: Reports: None Past Surgical History Past Surgical History: Reports: Orthopedic Surgery - Incision and drainage of foot abscess, Tonsillectomy, Other - Right nephrectomy secondary to renal cell c arcinoma in 1998 Social History Information Source: Relative Lives with: Family Smoking Status: Current Every Day Smoker Electronic Cigarette use?: No Frequency of Alcohol Use: None Hx Recreational Drug Use: No Drugs: None Hx Prescription Drug Abuse: No - Advance Directive Resuscitation Status: Full Code Surrogate healthcare decision maker:: Antonietta Noble Family History Family History: DM, Hypertension, Thyroid Disfunction Parental Family History Reviewed: Yes Children Family History Reviewed: No Sibling(s) Family History Reviewed.: Yes Medication/Allergy Home Medications: Aspirin [Aspirin 81 mg Chewable Tablet] 81 mg PO DAILY 12/13/11 Atorvastatin Calcium [Lipitor 40 mg Tablet] 40 mg PO QHS 12/13/11 Insulin Aspart [Novolog] 5 units SUBCUT ACHS 12/13/11 Insulin Glargine,Hum.rec.anlog [Lantus] 62 unit SQ QHS 12/13/11 Levothyroxine Sodium [Tirosint] 188 mcg PO DAILY 12/13/11 Losartan/Hydrochlorothiazide [Hyzaar 50-12.5 Tablet] 1 each PO DAILY 12/13/11 Fenofibrate Nanocrystallized [Tricor 145 mg Tablet] 145 mg PO DAILY tablet 05/23/16 Liraglutide [Victoza 2-Reinaldo] 1.8 mg SQ QAM 05/23/16 Allergies/Adverse Reactions: CHRISTOPHER Inhibitors [Christopher Inhibitors] Allergy (Severe, Verified 05/21/16 16:15) doxycycline [Doxycycline] Allergy (Severe, Verified 05/21/16 16:15) Review of Systems Constitutional: ABSENT: chills, fever(s) Eyes: ABSENT: visual disturbances, other - Eye pain Ears: ABSENT: hearing changes, other - Ear pain Nose, Mouth, and Throat: ABSENT: headache(s), sore throat Cardiovascular: PRESENT: as per HPI, chest pain. ABSENT: palpitations Respiratory: PRESENT: dyspnea. ABSENT: cough Gastrointestinal: ABSENT: abdominal pain, constipation, diarrhea, nausea, vomiting Genitourinary: ABSENT: dysuria, hematuria Musculoskeletal: ABSENT: joint swelling, muscle weakness Integumentary: ABSENT: pruritus, rash Neurological: PRESENT: confusion - Frequent, memory loss - Chronic short-term memory deficits. ABSENT: convulsions, focal weakness, syncope Psychiatric: PRESENT: anxiety. ABSENT: depression Endocrine: ABSENT: cold intolerance, heat intolerance Hematologic/Lymphatic: ABSENT: easy bleeding, easy bruising Allergic/Immunologic: PRESENT: other - Chronic sinusitis. ABSENT: seasonal rhinorrhea Physical Exam Vital Signs: Temp Pulse Resp BP Pulse Ox 98.3 F 72 21 H 142/50 H 98 04/15/20 03:22 04/15/20 03:22 04/15/20 04:01 04/15/20 04:00 04/15/20 04:01 General appearance: PRESENT: no acute distress, cooperative, morbidly obese Head exam: PRESENT: atraumatic, normocephalic Eye exam: PRESENT: conjunctiva pink. ABSENT: conjunctival injection, scleral icterus Ear exam: PRESENT: normal external ear exam. ABSENT: bleeding, drainage Mouth exam: PRESENT: dry mucosa, neck supple Neck exam: ABSENT: thyromegaly, tracheal deviation Respiratory exam: PRESENT: rales - Minimal bibasilar rales, symmetrical, unlabored Cardiovascular exam: PRESENT: RRR. ABSENT: clicks, gallop, rubs Pulses: PRESENT: normal radial pulses, +1 pedal pulses bilateral Vascular exam: PRESENT: normal capillary refill. ABSENT: pallor GI/Abdominal exam: PRESENT: normal bowel sounds, soft Rectal exam: PRESENT: deferred Extremities exam: PRESENT: pedal edema - Minimal. ABSENT: joint swelling Musculoskeletal exam: ABSENT: deformity, dislocation Neurological exam: PRESENT: alert, oriented to person Psychiatric exam: PRESENT: other - Pleasant and affable but confused Skin exam: PRESENT: dry, intact, warm. ABSENT: jaundice, rash, urticaria Results Laboratory Results: 04/15/20 00:01 04/15/20 00:01 04/15/20 04/15/20 04/15/20 00:01 00:01 01:00 WBC 8.5 RBC 3.75 Hgb 11.7 L Hct 34.4 L MCV 92 MCH 31.2 MCHC 34.0 RDW 15.0 H Plt Count 232 Seg Neutrophils % 71.1 Carbonic Acid HCO3/H2CO3 Ratio ABG pH ABG pCO2 ABG pO2 ABG HCO3 ABG O2 Saturation ABG Base Excess FiO2 Sodium 134.7 L Potassium 5.0 Chloride 98 Carbon Dioxide 31 H Anion Gap 6 BUN 47 H Creatinine 1.96 H Est GFR ( Amer) 31 L Glucose 265 H Calcium 9.0 Total Bilirubin 0.4 AST 27 Alkaline Phosphatase 72 Total Protein 6.3 Albumin 3.5 Urine Color STRAW Urine Appearance CLEAR Urine pH 6.0 Ur Specific [place] 1.007 Urine Protein 30 H Urine Glucose (UA) >=500 H Urine Ketones NEGATIVE Urine Blood NEGATIVE Urine RBC (Auto) 1 10/03/20 01:40 WBC RBC Hgb Hct MCV MCH MCHC RDW Plt Count Seg Neutrophils % Carbonic Acid 1.30 HCO3/H2CO3 Ratio 20:1 ABG pH 7.41 ABG pCO2 43.2 ABG pO2 71.8 L ABG HCO3 26.5 H ABG O2 Saturation 94.5 ABG Base Excess 1.6 FiO2 ROOM AIR Sodium Potassium Chloride Carbon Dioxide Anion Gap BUN Creatinine Est GFR ( Amer) Glucose Calcium Total Bilirubin AST Alkaline Phosphatase Total Protein Albumin Urine Color Urine Appearance Urine pH Ur Specific [place] Urine Protein Urine Glucose (UA) Urine Ketones Urine Blood Urine RBC (Auto) 04/15/20 04/15/20 04/15/20 00:01 00:01 00:01 Creatine Kinase 114 Troponin I < 0.012 NT-Pro-B Natriuret Pep 1020 H Impressions: Head CT 04/15/20 00:35 IMPRESSION: No acute intracranial findings. Hyperdense appearance of much of the left globe. Underlying hemorrhage is not excluded. Assessment and Plan - Diagnosis (1) Chest pain Qualifiers: Chest pain type: unspecified Qualified Code(s): R07.9 - Chest pain, unspecified Is this a current diagnosis for this admission?: Yes (2) Respiratory failure with hypoxia Qualifiers: Chronicity: unspecified Qualified Code(s): J96.91 - Respiratory failure, unspecified with hypoxia Is this a current diagnosis for this admission?: Yes (3) Morbid obesity with alveolar hypoventilation Is this a current diagnosis for this admission?: Yes (4) Chronic congestive heart failure Qualifiers: Heart failure type: unspecified Qualified Code(s): I50.9 - Heart failure, unspecified Is this a current diagnosis for this admission?: Yes (5) Diabetes mellitus type 2 in obese Is this a current diagnosis for this admission?: Yes (6) History of renal cell carcinoma Is this a current diagnosis for this admission?: Yes (7) CKD (chronic kidney disease), stage IV Is this a current diagnosis for this admission?: Yes (8) Hypertension Qualifiers: Hypertension type: essential hypertension Qualified Code(s): I10 - Essential (primary) hypertension Is this a current diagnosis for this admission?: Yes (9) Hyperlipidemia Qualifiers: Hyperlipidemia type: unspecified Qualified Code(s): E78.5 - Hyperlipidemia, unspecified Is this a current diagnosis for this admission?: Yes (10) Hypothyroidism Qualifiers: Hypothyroidism type: unspecified Qualified Code(s): E03.9 - Hypothyroidism, unspecified Is this a current diagnosis for this admission?: Yes - Plan Summary Summary: Patient will be admitted to the medical service where she will receive routine supportive and symptomatic cares. Serial cardiac enzymes will be obtained. She will receive supplemental oxygen via nasal cannula as needed for maintenance of an adequate oxygen saturation. Before meals and at bedtime Accu-Cheks will be performed with sliding scale insulin for hyperglycemia and a hypoglycemic protocol in place. Patient will use Ativan 1 mg IV every 4 hours as needed for anxiety or restlessness. She will use morphine sulfate 2 to 4 mg IV every 2 hours as needed for chest pain not responsive to nitroglycerin. She will receive Nitrol 2% ointment 1 g topically every 6 hours. A cardiology consultation will be obtained with Dr. Oakes. Patient will be on a cardiac and diabetic restricted diet. Patient's usual medications will be resumed, if appropriate, as soon as her medication list has been verified and reconciled. Victoza and Hyzaar should not be restarted as they are contraindicated in stage IV renal failure. Additional laboratory and/or radiographic evaluations will be obtained as needed. - Time Time Spent with patient: Less than 15 minutes Medications reviewed and adjusted accordingly: Yes Anticipated Discharge Disposition: Home with Home Health Anticipated Discharge Timeframe: within 72 hours - Inpatient Certification Based on my medical assessment, after consideration of the patient's comorbidities, presenting symptoms, or acuity I expect that the services needed warrant INPATIENT care.: Yes I certify that my determination is in accordance with my understanding of Medicare's requirements for reasonable and necessary INPATIENT services [42 CFR 412.3e].: Yes Medical Necessity: Significant Comorbidiites Make Outpatient Treatment Too Risky, Need Close Monitoring Due to Risk of Patient Decompensation, Need For Continuous Telemetry Monitoring
--- NOTE | 2020-04-15 06:32 | RADIOLOGY REPORT (SQ) ---
AP Portable chest: 04/15/2020 5:30 AM CDT History: 70-year old patient with chest pain, dyspnea. Comparison: Chest radiograph performed 05/22/2016. Findings: The cardiomediastinal silhouette is enlarged. No pneumothorax is seen. No discrete pleural effusion is apparent. There are minimal bibasilar airspace opacities which could reflect atelectasis. Impression: There are minimal bibasilar airspace opacities which may reflect atelectasis.
[2020-04-15 06:57] LABS: CREATINE KINASE MB 4.23 ng/mL (<4.55)
[2020-04-15 07:05] LABS: TROPONIN I < 0.012 ng/mL
--- NOTE | 2020-04-15 08:29 | EKG REPORT ---
SEVERITY:- NORMAL ECG - SINUS RHYTHM : Confirmed by: Alexis Eddy MD 15-Apr-2020 08:28:56
[2020-04-15] MEDS: CLONAZEPAM 1 MG TABLET PO SCH ×2 (09:33→22:12)
[2020-04-15] MEDS: DOCUSATE SODIUM 100 MG CAPSULE PO SCH ×2 (09:33→17:20)
[2020-04-15] MEDS: INSULIN REG, HUMAN 100 UNIT/ML 3 ML VIAL (PYX) SUBCUT PRN ×3 (09:34→17:17)
[2020-04-15] MEDS ORDERED: AMLODIPINE BESYLATE 2.5 MG TABLET PO SCH (13:00)
[2020-04-15 13:16] LABS: FREE T3 2.48 pg/mL (2.77-5.27); FREE T4 (FREE THYROXINE) 1.39 ng/dL (0.78-2.19)
[2020-04-15 13:29] LABS: THYROID STIMULATING HORMONE 2.49 uIU/mL (0.47-4.68)
[2020-04-15] MEDS: ASPIRIN 81 MG TABLET, CHEWABLE PO SCH (14:28)
[2020-04-15] MEDS: CARVEDILOL 12.5 MG TABLET PO SCH ×2 (14:28→22:11)
--- NOTE | 2020-04-15 16:40 | Progress Note ---
Provider Note Provider Note: Patient admitted early this morning for chest pain. EKG has been unremarkable, troponins negative thus far. Will monitor overnight and discharged with outpatient follow-up. She has been seen by Dr. Cowart here in the hospital and he will see her in his office.
[2020-04-15] MEDS: AMLODIPINE BESYLATE 2.5 MG TABLET PO SCH ×2 (17:20→22:12)
--- NOTE | 2020-04-15 21:04 | EKG REPORT ---
SEVERITY:- NORMAL ECG - SINUS RHYTHM : Confirmed by: Alexis Eddy MD 15-Apr-2020 21:04:40
[2020-04-15] MEDS: LOSARTAN POTASSIUM 50 MG TABLET PO SCH (22:15)
--- NOTE | 2020-04-15 23:07 | PDOC CONSULTATION ---
Consultation-Blank Consultation: CARDIOLOGY CONSULTATION by Dr. Kenzie Danielson on 04/15/2020. Patient seen at 1:30 PM. 60 minutes spent as patient with more than 50% of time spent in direct patient care. REASON FOR CONSULTATION: Patient with chest pressure. Patient multiple CAD risk factors. CONSULT REQUESTING PHYSICIAN: Dr. Esparza, [facility] HISTORY OF PRESENT ILLNESS: Patient is not a very good historian. She states that she came to the hospital because of shortness of breath orthopnea and also moderate chest pressure in the front of the chest which lasted for several hours since the morning of admission. She states it did not increase with exertion. She has a history of sleep apnea and has been intolerant to CPAP and hence does not wear it. There is no cough or wheezing. There is no palpitations, near- syncope syncope. There is no PND or leg edema. The patient's EKG x2 are normal and the cardiac enzymes are negative. Chest x-ray shows borderline evidence of heart failure. The patient has a history of hypertension and diabetes mellitus. There is no prior history of congestive heart failure or coronary artery disease or DE or anginal symptoms. Note that the patient is morbidly obese. Past Medical History Cardiac Medical History: Reports: Hyperlipidema, Hypertension Denies: Atrial Fibrillation, Coronary Artery Disease, DVT, Myocardial Infarction, Pulmonary Embolism Pulmonary Medical History: Denies: Asthma, Chronic Obstructive Pulmonary Disease (COPD), Respiratory Failure, Tuberculosis EENT Medical History: Reports: Other - Chronic sinusitis Denies: Ears - Hearing aids Neurological Medical History: Reports: Ischemic CVA Denies: Hemorrhagic CVA, Seizures Endocrine Medical History: Reports: Diabetes Mellitus Type 2, Hypothyroidism, Obesity Denies: Diabetes Mellitus Type 1, Hyperthyroidism Renal/ Medical History: Reports: Chronic Kidney Disease Denies: Nephrolithiasis Malignancy Medical History: Reports: Renal (Kidney) Cancer GI Medical History: Denies: Cirrhosis, Hepatitis Musculoskeltal Medical History: Denies: Fibromyalgia, Gout Skin Medical History: Denies: Eczema, Psoriasis Psychiatric Medical History: Reports: Dementia, General Anxiety Disorder Denies: Alcohol Dependency, Depression, Substance Abuse, Tobacco Dependency Traumatic Medical History: Reports: None Hematology: Reports: Anemia - Chronic due to renal failure Denies: Bleeding Tendencies Infectious Medical History: Reports: None Past Surgical History Past Surgical History: Reports: Orthopedic Surgery - Incision and drainage of foot abscess, Tonsillectomy, Other - Right nephrectomy secondary to renal cell carcinoma in 1998 Social History Information Source: Relative Lives with: Family Smoking Status: Current Every Day Smoker Electronic Cigarette use?: No Frequency of Alcohol Use: None Hx Recreational Drug Use: No Drugs: None Hx Prescription Drug Abuse: No - Advance Directive Resuscitation Status: Full Code Surrogate healthcare decision maker:: Antonietta Benitez Family History Family History: DM, Hypertension, Thyroid Disfunction Parental Family History Reviewed: Yes Children Family History Reviewed: No Sibling(s) Family History Reviewed.: Yes Medication/Allergy Home Medications: Aspirin [Aspirin 81 mg Chewable Tablet] 81 mg PO DAILY 12/13/11 Atorvastatin Calcium [Lipitor 40 mg Tablet] 40 mg PO QHS 12/13/11 Insulin Aspart [Novolog] 5 units SUBCUT ACHS 12/13/11 Insulin Glargine,Hum.rec.anlog [Lantus] 62 unit SQ QHS 12/13/11 Levothyroxine Sodium [Tirosint] 188 mcg PO DAILY 12/13/11 Losartan/Hydrochlorothiazide [Hyzaar 50-12.5 Tablet] 1 each PO DAILY 12/13/11 Fenofibrate Nanocrystallized [Tricor 145 mg Tablet] 145 mg PO DAILY tablet 05/23/16 Liraglutide [Victoza 2-Reinaldo] 1.8 mg SQ QAM 05/23/16 Allergies/Adverse Reactions: CHRISTOPHER Inhibitors [Christopher Inhibitors] Allergy (Severe, Verified 05/21/16 16:15) doxycycline [Doxycycline] Allergy (Severe, Verified 05/21/16 16:15) Resuscitation STATUS: Patient Is a Full Code. Her Is His Surrogate Healthcare Decision Maker. Current Medications Generic Name Dose Route Start Last Admin Trade Name Freq PRN Reason Stop Dose Admin Acetaminophen 650 mg 04/15/20 05:02 04/15/20 17:18 Tylenol 325 Mg Tablet PO 05/15/20 05:01 650 mg Q4HP PRN Administration For headache, pain or fever Al Hydrox/Mg Hydrox/Simethicone 30 ml 04/15/20 04:56 Maalox Plus Susp 30 Udcup PO 05/15/20 04:55 Q6HP PRN HEARTBURN Amlodipine Besylate 2.5 mg 04/15/20 14:00 04/15/20 22:12 Norvasc 2.5 Mg Tablet PO 05/15/20 13:59 2.5 mg Q12 JUJU Administration Aspirin 81 mg 04/15/20 13:00 04/15/20 14:28 Aspirin 81 Mg Chewable Tablet PO 05/15/20 12:59 81 mg DAILY JUJU Administration Carvedilol 25 mg 04/15/20 14:00 04/15/20 22:11 Coreg 12.5 Mg Tablet PO 05/15/20 13:59 25 mg Q12 JUJU Administration Clonazepam 0.5 mg 04/15/20 10:00 04/15/20 22:12 Klonopin 1 Mg Tablet PO 04/22/20 09:59 0.5 mg Q12H JUJU Administration Dextrose 12.5 gm 04/15/20 05:03 Dextrose Inj 50% Syringe (25 Gm/50 Ml) IV 05/15/20 05:02 PRN PRN FOR BG 50-69 IN ALERT PATIENT Protocol Dextrose 25 gm 04/15/20 05:03 Dextrose Inj 50% Syringe (25 Gm/50 Ml) IV 05/15/20 05:02 PRN PRN PER PROTOCOL Protocol Docusate Sodium 100 mg 04/15/20 10:00 04/15/20 17:20 Colace 100 Mg Capsule PO 05/15/20 09:59 Not Given BID JUJU Glucagon 1 mg 04/15/20 05:03 Glucagen Inj 1 Mg Vial IM 05/15/20 05:02 PRN PRN Evaluate for BG < 70 Protocol Glucose 15 gm 04/15/20 05:03 Glutose 40% Gel 15 Gm Tube PO 05/15/20 05:02 PRN PRN FOR BG 50-69 IN ALERT PATIENT Protocol Glucose 30 gm 04/15/20 05:03 Glutose 40% Gel 15 Gm Tube PO 05/15/20 05:02 PRN PRN FOR BG < 50 IN ALERT PATIENT Protocol Guaifenesin 200 mg 04/15/20 05:02 Robitussin Syrup 200 Mg/10 Ml Ud Cup PO 05/15/20 05:01 Q4HP PRN COUGH Heparin Sodium (Porcine) 5,000 unit 04/15/20 06:00 04/15/20 22:12 Heparin Inj 5,000 Units/Ml 1 Ml Vial SUBCUT 05/15/20 05:59 5,000 unit Q8 JUJU Administration Hydralazine HCl 20 mg 04/15/20 05:02 Apresoline Inj/Pf 20 Mg/1 Ml Sdv IV 05/15/20 05:01 Q4HP PRN Give For Sbp > 160 / Dbp > 100 Insulin Human Regular 0 - 15 unit 04/15/20 05:02 04/15/20 17:17 Humulin R (Pyxis) Insulin 100 Unit/Ml 3ml SUBCUT 05/15/20 05:01 7 unit ACHSP PRN Administration PER PROTOCOL Protocol Lorazepam 1 mg 04/15/20 05:02 Ativan Inj 2 Mg/1 Ml Vial IV 04/22/20 05:01 Q4HP PRN ANXIETY/AGITATION Losartan Potassium 50 mg 04/15/20 22:00 04/15/20 22:15 Cozaar 50 Mg Tablet PO 05/15/20 21:59 50 mg DAILY JUJU Administration Magnesium Hydroxide 30 ml 04/15/20 04:56 Milk Of Magnesia 30 Ml Udcup PO 05/15/20 04:55 HSP PRN FOR CONSTIPATION Melatonin 5 mg 04/15/20 05:02 Melatonin 5 Mg Tablet PO 05/15/20 05:01 HSP PRN SLEEP OR INSOMNIA Metoprolol Tartrate 5 mg 04/15/20 05:02 Lopressor Inj/Pf 5 Mg/5 Ml Sdv IV 05/15/20 05:01 Q4HP PRN Give For Sbp > 160 / Dbp > 100 Morphine Sulfate 2 - 4 mg 04/15/20 05:02 Morphine 10 Mg/Ml Inj IV 04/22/20 05:01 Q2HP PRN See protocol Protocol Ondansetron HCl 4 mg 04/15/20 04:56 Zofran Inj/Pf 4 Mg/2 Ml Sdv IV 05/15/20 04:55 Q4HP PRN FOR NAUSEA/VOMITING Pantoprazole Sodium 40 mg 04/15/20 06:00 04/15/20 06:[address] Tablet PO 05/15/20 05:59 40 mg Q6AM JUJU Administration Sodium Chloride 2.5 ml 04/15/20 06:00 04/15/20 22:12 Saline Flush 2.5 Ml Monoject Prefil Syrin IV 05/15/20 05:59 2.5 ml Q8 JUJU Administration Discontinued Medications Generic Name Dose Route Start Last Admin Trade Name Freq PRN Reason Stop Dose Admin Amlodipine Besylate 2.5 mg 04/15/20 13:00 Norvasc 2.5 Mg Tablet PO 05/15/20 12:59 Q12 JUJU Amoxicillin/Clavulanate Potassium 1 tab 04/15/20 03:23 04/15/20 03:26 Augmentin 875-125 Tablet PO 04/15/20 03:24 1 tab NOW ONE Administration Bumetanide 1 mg 04/15/20 01:35 04/15/20 01:53 Bumex Inj/Pf 1 Mg/4 Ml Sdv IV 04/15/20 01:36 1 mg NOW ONE Administration Nitroglycerin 1 gm 04/15/20 06:00 04/15/20 06:13 Nitrol 2% Ointment 1gm Packet TP 05/15/20 05:59 1 gm Q6 JUJU Administration Review of Systems Constitutional: ABSENT: chills, fever(s) Eyes: ABSENT: visual disturbances, other - Eye pain Ears: ABSENT: hearing changes, other - Ear pain Nose, Mouth, and Throat: ABSENT: headache(s), sore throat Cardiovascular: PRESENT: as per HPI, chest pain. ABSENT: palpitations Respiratory: PRESENT: dyspnea. ABSENT: cough Gastrointestinal: ABSENT: abdominal pain, constipation, diarrhea, nausea, vomiting Genitourinary: ABSENT: dysuria, hematuria Musculoskeletal: ABSENT: joint swelling, muscle weakness Integumentary: ABSENT: pruritus, rash Neurological: PRESENT: confusion - Frequent, memory loss - Chronic short-term memory deficits. ABSENT: convulsions, focal weakness, syncope Psychiatric: PRESENT: anxiety. ABSENT: depression Endocrine: ABSENT: cold intolerance, heat intolerance Hematologic/Lymphatic: ABSENT: easy bleeding, easy bruising Allergic/Immunologic: PRESENT: other - Chronic sinusitis. ABSENT: seasonal rhinorrhea Physical Exam the patient is morbidly obese. In no acute distress at present. She has no chest pain or shortness of breath at present. Selected Entries 04/15/20 11:48 Temperature 97.3 F Temperature Axillary Source Pulse Rate 70 Respiratory 16 Rate Blood Pressure 125/47 L Blood Pressure 73 Mean BP Location Right Arm BP Position Supine O2 Sat by Pulse 91 L Oximetry Oxygen Flow 1.00 Rate Oxygen Delivery Nasal Cannula Method HEAD: Is atraumatic normocephalic. EYES: Pupils are equal round regular reactive light accommodation. Extraocular movements are normal. There is no conjunctival pallor. There is no scleral icterus. EARS: Tympanic membranes are intact. External auditory canals are clear. NOSE: There is no deviated nasal septum. There is no inflammation nasal mucous membrane. MOUTH: Mucous membranes of mouth are moist. Tongue is moist. There is no ulcers. There is no bleeding from the gums. THROAT: There is no redness of the oropharynx there is no exudates. SKIN: There is no skin rashes. There is no petechia or ecchymosis. There is no skin lesions. NECK: Supple. There is no JVD. Carotids are equal there is no bruit. There is no lymphadenopathy. There is no goiter. There is no accessory muscle respiration use. Trachea central. LUNGS: Clear to auscultation percussion without any rhonchi rales or wheezing. HEART: S1-S2 is heard. There is no S3 gallop. There is no S4 gallop. There is systolic murmur left sternal border and the apex there is no rub. ABDOMEN: Is soft obese nontender. There is no hepatosplenomegaly. Bowel sounds are well heard. There is no masses. There is no tender areas. There is no rebound guarding or rigidity. EXTREMITIES: Femorals are deep. There is no femoral bruits. Femorals are slightly diminished. Leg pulses well felt. There is no DVT or cellulitis. There is no pedal edema. There is no cyanosis or clubbing. Capillary refill is normal. CAR CHECKER: The patient is conscious awake alert oriented x3 with no focal deficits. PSYCHIATRIC: The patient judgment site are intact her affect is normal. EKG x2 done yesterday and today is within normal limits. Labs- Entire Visit 04/15/20 04/15/20 04/15/20 00:01 00:01 00:01 WBC 8.5 RBC 3.75 Hgb 11.7 L Hct 34.4 L MCV 92 MCH 31.2 MCHC 34.0 RDW 15.0 H Plt Count 232 Lymph % (Auto) 19.0 Collin % (Auto) 6.8 Eos % (Auto) 2.5 Baso % (Auto) 0.6 Absolute Neuts (auto) 6.0 Absolute Lymphs (auto) 1.6 Absolute Monos (auto) 0.6 Absolute Eos (auto) 0.2 Absolute Basos (auto) 0.0 Seg Neutrophils % 71.1 Carbonic Acid HCO3/H2CO3 Ratio ABG pH ABG pCO2 ABG pO2 ABG HCO3 ABG Total CO2 ABG O2 Saturation ABG Base Excess FiO2 Sodium 134.7 L Potassium 5.0 Chloride 98 Carbon Dioxide 31 H Anion Gap 6 BUN 47 H Creatinine 1.96 H Est GFR ( Amer) 31 L Est GFR (MDRD) Non-Af 25 L Glucose 265 H POC Glucose Calcium 9.0 Total Bilirubin 0.4 Direct Bilirubin 0.3 Neonat Total Bilirubin 0.1 Neonat Direct Bilirubin 0.0 Neonat Indirect Bili 0.1 AST 27 ALT 26 Alkaline Phosphatase 72 Creatine Kinase 114 CK-MB (CK-2) Troponin I < 0.012 NT-Pro-B Natriuret Pep Total Protein 6.3 Albumin 3.5 TSH Free T4 Free T3 pg/mL Urine Color Urine Appearance Urine pH Ur Specific [place] Urine Protein Urine Glucose (UA) Urine Ketones Urine Blood Urine Nitrite (Reflex) Urine Bilirubin Urine Urobilinogen Leukocyte Esterase Rfl Urine RBC (Auto) Urine Bacteria (Auto) Urine WBC (Reflex) Squamous Epi Cells Auto Urine Ascorbic Acid 04/15/20 04/15/20 04/15/20 00:01 00:01 01:00 WBC RBC Hgb Hct MCV MCH MCHC RDW Plt Count Lymph % (Auto) [place]lin % (Auto) Eos % (Auto) Baso % (Auto) Absolute Neuts (auto) Absolute Lymphs (auto) Absolute Monos (auto) Absolute Eos (auto) Absolute Basos (auto) Seg Neutrophils % Carbonic Acid HCO3/H2CO3 Ratio ABG pH ABG pCO2 ABG pO2 ABG HCO3 ABG Total CO2 ABG O2 Saturation ABG Base Excess FiO2 Sodium Potassium Chloride Carbon Dioxide Anion Gap BUN Creatinine Est GFR ( Amer) Est GFR (MDRD) Non-Af Glucose POC Glucose Calcium Total Bilirubin Direct Bilirubin Neonat Total Bilirubin Neonat Direct Bilirubin Neonat Indirect Bili AST ALT Alkaline Phosphatase Creatine Kinase CK-MB (CK-2) Troponin I NT-Pro-B Natriuret Pep 1020 H Total Protein Albumin TSH 2.49 Free T4 1.39 Free T3 pg/mL 2.48 L Urine Color STRAW Urine Appearance CLEAR Urine pH 6.0 Ur Specific [place] 1.007 Urine Protein 30 H Urine Glucose (UA) >=500 H Urine Ketones NEGATIVE Urine Blood NEGATIVE Urine Nitrite (Reflex) NEGATIVE Urine Bilirubin NEGATIVE Urine Urobilinogen NEGATIVE Leukocyte Esterase Rfl NEGATIVE Urine RBC (Auto) 1 Urine Bacteria (Auto) TRACE Urine WBC (Reflex) 7 Squamous Epi Cells Auto <1 Urine Ascorbic Acid NEGATIVE 04/15/20 04/15/20 04/15/20 01:40 06:09 06:09 WBC RBC Hgb Hct MCV MCH MCHC RDW Plt Count Lymph % (Auto) [place] % (Auto) Eos % (Auto) Baso % (Auto) Absolute Neuts (auto) Absolute Lymphs (auto) Absolute Monos (auto) Absolute Eos (auto) Absolute Basos (auto) Seg Neutrophils % Carbonic Acid 1.30 HCO3/H2CO3 Ratio 20:1 ABG pH 7.41 ABG pCO2 43.2 ABG pO2 71.8 L ABG HCO3 26.5 H ABG Total CO2 27.8 H ABG O2 Saturation 94.5 ABG Base Excess 1.6 FiO2 ROOM AIR Sodium Potassium Chloride Carbon Dioxide Anion Gap BUN Creatinine Est GFR ( Amer) Est GFR (MDRD) Non-Af Glucose POC Glucose Calcium Total Bilirubin Direct Bilirubin Neonat Total Bilirubin Neonat Direct Bilirubin Neonat Indirect Bili AST ALT Alkaline Phosphatase Creatine Kinase 113 CK-MB (CK-2) 4.23 Troponin I < 0.012 NT-Pro-B Natriuret Pep Total Protein Albumin TSH Free T4 Free T3 pg/mL Urine Color Urine Appearance Urine pH Ur Specific [place] Urine Protein Urine Glucose (UA) Urine Ketones Urine Blood Urine Nitrite (Reflex) Urine Bilirubin Urine Urobilinogen Leukocyte Esterase Rfl Urine RBC (Auto) Urine Bacteria (Auto) Urine WBC (Reflex) Squamous Epi Cells Auto Urine Ascorbic Acid 04/15/20 04/15/20 04/15/20 08:14 11:48 15:53 WBC RBC Hgb Hct MCV MCH MCHC RDW Plt Count Lymph % (Auto) [place] % (Auto) Eos % (Auto) Baso % (Auto) Absolute Neuts (auto) Absolute Lymphs (auto) Absolute Monos (auto) Absolute Eos (auto) Absolute Basos (auto) Seg Neutrophils % Carbonic Acid HCO3/H2CO3 Ratio ABG pH ABG pCO2 ABG pO2 ABG HCO3 ABG Total CO2 ABG O2 Saturation ABG Base Excess FiO2 Sodium Potassium Chloride Carbon Dioxide Anion Gap BUN Creatinine Est GFR ( Amer) Est GFR (MDRD) Non-Af Glucose POC Glucose 196 H 222 H 291 H Calcium Total Bilirubin Direct Bilirubin Neonat Total Bilirubin Neonat Direct Bilirubin Neonat Indirect Bili AST ALT Alkaline Phosphatase Creatine Kinase CK-MB (CK-2) Troponin I NT-Pro-B Natriuret Pep Total Protein Albumin TSH Free T4 Free T3 pg/mL Urine Color Urine Appearance Urine pH Ur Specific [place] Urine Protein Urine Glucose (UA) Urine Ketones Urine Blood Urine Nitrite (Reflex) Urine Bilirubin Urine Urobilinogen Leukocyte Esterase Rfl Urine RBC (Auto) Urine Bacteria (Auto) Urine WBC (Reflex) Squamous Epi Cells Auto Urine Ascorbic Acid 04/15/20 20:39 WBC RBC Hgb Hct MCV MCH MCHC RDW Plt Count Lymph % (Auto) [place] % (Auto) Eos % (Auto) Baso % (Auto) Absolute Neuts (auto) Absolute Lymphs (auto) Absolute Monos (auto) Absolute Eos (auto) Absolute Basos (auto) Seg Neutrophils % Carbonic Acid HCO3/H2CO3 Ratio ABG pH ABG pCO2 ABG pO2 ABG HCO3 ABG Total CO2 ABG O2 Saturation ABG Base Excess FiO2 Sodium Potassium Chloride Carbon Dioxide Anion Gap BUN Creatinine Est GFR ( Amer) Est GFR (MDRD) Non-Af Glucose POC Glucose 298 H Calcium Total Bilirubin Direct Bilirubin Neonat Total Bilirubin Neonat Direct Bilirubin Neonat Indirect Bili AST ALT Alkaline Phosphatase Creatine Kinase CK-MB (CK-2) Troponin I NT-Pro-B Natriuret Pep Total Protein Albumin TSH Free T4 Free T3 pg/mL Urine Color Urine Appearance Urine pH Ur Specific [place] Urine Protein Urine Glucose (UA) Urine Ketones Urine Blood Urine Nitrite (Reflex) Urine Bilirubin Urine Urobilinogen Leukocyte Esterase Rfl Urine RBC (Auto) Urine Bacteria (Auto) Urine WBC (Reflex) Squamous Epi Cells Auto Urine Ascorbic Acid Head CT 04/15/20 00:35 IMPRESSION: No acute intracranial findings. Hyperdense appearance of much of the left globe. Underlying hemorrhage is not excluded. CHEST X-ray: Minimal bibasilar atelectasis. No evidence of heart failure. There is suggestion that there may be prominent pulmonary arteries? Pulmonary hypertension. This is my interpretation of the x-ray. IMPRESSION/RECOMMENDATION: 1. Chest pressure. Under orthopnea and shortness of breath. There is no definite evidence of myocardial infarction. The patient is EKG is normal. The patient does have multiple CAD risk factors. Hence would recommend strongly that the patient have an IV Lexiscan Cardiolite stress test as an outpatient. 2. Hypoxemia ,shortness of breath, and elevated NT BNP in a patient who has sleep apnea and does not wear CPAP. Most likely this is probably secondary to pulmonary hypertension.? Severity. Recommend starting the patient on a ARB since the patient is allergic to CHRISTOPHER inhibitor. This will also serve the purpose of renal protection. Also will start the patient on amlodipine. Would recommend outpatient echocardiogram to assess LV ejection fraction and pulmonary hypertension. 3. History of sleep apnea. Patient intolerant to CPAP. Would recommend that the patient try a nasal CPAP. This is been discussed with the patient patient's . 4. Hypertension: Blood pressure well controlled. 5. Diabetes mellitus. 6. Hypothyroidism: Continue thyroid replacement. 7. History of hyperlipidemia: Continue statin. 8. Most likely clinically the patient has pulmonary hypertension: Would recommend echocardiogram as outpatient to assess severity of pulmonary hypertension. 9. Morbid obesity: Medications reviewed. Medications added. Medical regimen and management plan discussed with attending provider Dr. Harper. Medical decision making is of high complexity. 60 minutes spent with patient more than 50% of time spent in direct patient care. Patient's cardiac status is stable. Hence we will discharge the patient home.
[2020-04-16] MEDS: HEPARIN SOD (PORCINE) 5,000 UNIT/ML 1 ML VIAL SUBCUT SCH (05:13)
[2020-04-16] MEDS: PANTOPRAZOLE SODIUM 40 MG TABLET.DR PO SCH (05:13)
[2020-04-16 05:28] LABS: HEMATOCRIT 33.8 % (36.0-47.0); HEMOGLOBIN 11.4 g/dL (12.0-15.5); MEAN CORPUSCULAR HEMOGLOBIN 30.9 pg (27.0-33.4); MEAN CORPUSCULAR HGB CONC 33.8 g/dL (32.0-36.0); MEAN CORPUSCULAR VOLUME 91 fl (80-97); PLATELET COUNT 254 10^3/uL (150-450); RED BLOOD COUNT 3.71 10^6/uL (3.72-5.28); RED CELL DISTRIBUTION WIDTH 15.1 % (11.5-14.0)
[2020-04-16 05:59] LABS: ANION GAP 10 (5-19); BLOOD UREA NITROGEN 53 mg/dL (7-20); CALCIUM 9.2 mg/dL (8.4-10.2); CARBON DIOXIDE 27 mmol/L (22-30); CHLORIDE 96 mmol/L (98-107); CHOLESTEROL 150.03 mg/dL (0-200); GLUCOSE 230 mg/dL (75-110); POTASSIUM 4.9 mmol/L (3.6-5.0); TRIGLYCERIDES 352 mg/dL (<150)
[2020-04-16 06:10] LABS: DIRECT LDL 60 mg/dL (<100)
[2020-04-16 06:19] LABS: VLDL CHOLESTEROL 70.4 mg/dL (10-31)
[2020-04-16] MEDS: INSULIN REG, HUMAN 100 UNIT/ML 3 ML VIAL (PYX) SUBCUT PRN ×2 (08:45→12:39)
[2020-04-16] MEDS: AMLODIPINE BESYLATE 2.5 MG TABLET PO SCH (09:59)
[2020-04-16] MEDS: CARVEDILOL 12.5 MG TABLET PO SCH (09:59)
[2020-04-16] MEDS: LOSARTAN POTASSIUM 50 MG TABLET PO SCH (10:00)
[2020-04-16] MEDS: ASPIRIN 81 MG TABLET, CHEWABLE PO SCH (10:00)
[2020-04-16] MEDS: DOCUSATE SODIUM 100 MG CAPSULE PO SCH (10:00)
[2020-04-16] MEDS: CLONAZEPAM 1 MG TABLET PO SCH (10:00)
--- NOTE | 2020-04-16 10:31 | CDI QUERY ---
CDI Query CDI Review: We are seeking further clarification of documentation to reflect the severity of illness of your patient. Per ED Notes: BNP is elevated, consistent with a CHF exacerbation CHF exacerbation Qualifiers: Heart failure type: unspecified Qualified Code(s): I50.9 - Heart failure, unspecified Per H&P: On 04/14/2020 the patient woke at 6:30 AM with dyspnea and moderate central chest heaviness which persisted off and on during the day and became more intense during the evening prompting her call to EMS. Chronic congestive heart failure Qualifiers: Heart failure type: unspecified Qualified Code(s): I50.9 - Heart failure, unspecified BNP 1020 Based on your medical judgement, can you further clarify in the Progress Notes: Type of heart failure: > Systolic > Diastolic > Combined systolic/diastolic > Other (please specify) > None of the above / Not applicable - AND Severity of heart failure > Acute, exacerbation, or decompensation > Chronic Acute on chronic > Other (please specify) > None of the above / Not applicable Thank you for your consideration. YEE Meredith RN Clinical Senior Automation Engineer Physician Advisor [email or web address]
[2020-04-16 12:26] VITALS: BP 143/50
--- NOTE | 2020-04-16 16:07 | PDOC DISCHARGE SUMMARY ---
Impression - Admit/DC Date/PCP Admission Date/Primary Care Provider: 04/15/20 03:51 JOSE FARAH MD Discharge Date: 04/16/20 - Discharge Diagnosis (1) Chest pain Is this a current diagnosis for this admission?: Yes (2) CKD (chronic kidney disease), stage IV Is this a current diagnosis for this admission?: Yes (3) Diabetes mellitus type 2 in obese Is this a current diagnosis for this admission?: Yes (4) Hyperlipidemia Is this a current diagnosis for this admission?: Yes (5) Hypertension Is this a current diagnosis for this admission?: Yes (6) Hypertriglyceridemia Is this a current diagnosis for this admission?: Yes (7) Hypothyroidism Is this a current diagnosis for this admission?: Yes (8) Morbid obesity with alveolar hypoventilation Is this a current diagnosis for this admission?: Yes - Assessment Summary: Patient will be admitted to the medical service where she will receive routine supportive and symptomatic cares. Serial cardiac enzymes will be obtained. She will receive supplemental oxygen via nasal cannula as needed for maintenance of an adequate oxygen saturation. Before meals and at bedtime Accu-Cheks will be performed with sliding scale insulin for hyperglycemia and a hypoglycemic protocol in place. Patient will use Ativan 1 mg IV every 4 hours as needed for anxiety or restlessness. She will use morphine sulfate 2 to 4 mg IV every 2 hours as needed for chest pain not responsive to nitroglycerin. She will receive Nitrol 2% ointment 1 g topically every 6 hours. A cardiology consultation will be obtained with Dr. Garcia. Patient will be on a cardiac and diabetic restricted diet. Patient's usual medications will be resumed, if appropriate, as soon as her medication list has been verified and reconciled. Victoza and Hyzaar should not be restarted as they are contraindicated in stage IV renal failure. Additional laboratory and/or radiographic evaluations will be obtained as needed. - Additional Information Resuscitation Status: Full Code Discharge Diet: Cardiac, Diabetic Discharge Activity: Activity As Tolerated Referrals: JOSE FARAH MD [Primary Care Provider] - Follow up as needed MATHEW GARCIA MD [ACTIVE STAFF] - (1 week) Prescriptions: Losartan Potassium [Cozaar 50 mg Tablet] 50 mg PO DAILY #30 tablet Amlodipine Besylate [Norvasc 2.5 mg Tablet] 2.5 mg PO Q12 #60 tablet Home Medications: Aspirin [Aspirin 81 mg Chewable Tablet] 81 mg PO QHS 12/13/11 Atorvastatin Calcium [Lipitor 40 mg Tablet] 40 mg PO QHS 12/13/11 Insulin Glargine,Hum.rec.anlog [Lantus] 70 unit SQ QHS 12/13/11 Fenofibrate Nanocrystallized [Tricor 145 mg Tablet] 145 mg PO DAILY tablet 05/23/16 Insulin Aspart [Novolog Flexpen] 0 unit SUBCUT .SLD SCALE 04/15/20 Levothyroxine Sodium [Synthroid] 175 mcg PO Q6AM 04/15/20 Amlodipine Besylate [Norvasc 2.5 mg Tablet] 2.5 mg PO Q12 #60 tablet 04/16/20 Carvedilol [Coreg 12.5 mg Tablet] 25 mg PO BID 04/16/20 Losartan Potassium [Cozaar 50 mg Tablet] 50 mg PO DAILY #30 tablet 04/16/20 History of Present Illiness History of Present Illness: GUERO NOBLE is a 70 year old female presents the emergency room with a 1 day history of dyspnea. The patient has mild vascular dementia and relies on her daughter to aid her in providing history. On 04/14/2020 the patient woke at 6:30 AM with dyspnea and moderate central chest heaviness which persisted off and on during the day and became more intense during the evening prompting her call to EMS. Patient was treated by EMS with an anxiolytic as well as being provided aspirin, oxygen and sublingual nitroglycerin with marked improvement in her symptoms becoming asymptomatic on arrival in the ER. Patient's cardiac enzymes and EKG showed no evidence of myocardial ischemia or injury. Her BNP was elevated without prior reference point. She was noted to be hypoxic on room air and required supplemental oxygen for correction. She was subsequently admitted to the hospital for further evaluation and treatment. Hospital Course Hospital Course: It was previously mentioned that this patient has a CHF exacerbation. This patient did not have a CHF exacerbation during this hospitalization. CHF had nothing to do with her presentation. She was chest pain-free and her enzymes trended out negative. She had a normal EKG. She was seen in consultation by Dr. Garcia who added some blood pressure medication and plans to have her follow-up in the office for an echocardiogram and a stress test. Her labs and examination were reassuring and she was discharged in stable condition. Physical Exam Vital Signs: Temp Pulse Resp BP Pulse Ox 97.5 F 66 19 143/50 H 95 04/16/20 12:24 04/16/20 12:24 04/16/20 12:24 04/16/20 12:24 04/16/20 12:24 Intake & Output 04/15/20 04/16/20 04/17/20 06:59 06:59 06:59 Intake Total 540 450 Balance 540 450 Weight 129 kg 129 kg 129 kg General appearance: PRESENT: no acute distress, cooperative, disheveled, mo rbidly obese Respiratory exam: PRESENT: clear to auscultation stephanie, symmetrical, unlabored. ABSENT: accessory muscle use, chest wall tenderness, crackles, prolonged expiratory phas, rhonchi, tachypnea, wheezes Cardiovascular exam: PRESENT: RRR, +S1, +S2 Pulses: PRESENT: normal carotid pulses Vascular exam: PRESENT: normal capillary refill GI/Abdominal exam: PRESENT: normal bowel sounds, soft. ABSENT: distended, guarding, rebound, tenderness Extremities exam: ABSENT: clubbing, pedal edema Musculoskeletal exam: PRESENT: normal inspection. ABSENT: deformity Neurological exam: PRESENT: alert, awake, oriented to person, oriented to place, oriented to situation Psychiatric exam: PRESENT: appropriate affect, normal mood Skin exam: PRESENT: dry, warm Results Laboratory Results: WBC 6.0 10^3/uL (4.0-10.5) 04/16/20 04:48 RBC 3.71 10^6/uL (3.72-5.28) L 04/16/20 04:48 Hgb 11.4 g/dL (12.0-15.5) L 04/16/20 04:48 Hct 33.8 % (36.0-47.0) L 04/16/20 04:48 MCV 91 fl (80-97) 04/16/20 04:48 MCH 30.9 pg (27.0-33.4) 04/16/20 04:48 MCHC 33.8 g/dL (32.0-36.0) 04/16/20 04:48 RDW 15.1 % (11.5-14.0) H 04/16/20 04:48 Plt Count 254 10^3/uL (150-450) 04/16/20 04:48 Lymph % (Auto) 19.0 % (13-45) 04/15/20 00:01 Anderson % (Auto) 6.8 % (3-13) 04/15/20 00:01 Eos % (Auto) 2.5 % (0-6) 04/15/20 00:01 Baso % (Auto) 0.6 % (0-2) 04/15/20 00:01 Absolute Neuts (auto) 6.0 10^3/uL (1.7-8.2) 04/15/20 00:01 Absolute Lymphs (auto) 1.6 10^3/uL (0.5-4.7) 04/15/20 00:01 Absolute Monos (auto) 0.6 10^3/uL (0.1-1.4) 04/15/20 00:01 Absolute Eos (auto) 0.2 10^3/uL (0.0-0.6) 04/15/20 00:01 Absolute Basos (auto) 0.0 10^3/uL (0.0-0.2) 04/15/20 00:01 Seg Neutrophils % 71.1 % (42-78) 04/15/20 00:01 Carbonic Acid 1.30 mmol/L (1.05-1.35) 04/15/20 01:40 HCO3/H2CO3 Ratio 20:1 04/15/20 01:40 ABG pH 7.41 (7.35-7.45) 04/15/20 01:40 ABG pCO2 43.2 mmHg (35-45) 04/15/20 01:40 ABG pO2 71.8 mmHg (80-100) L 04/15/20 01:40 ABG HCO3 26.5 mmol/L (20-24) H 04/15/20 01:40 ABG Total CO2 27.8 mmol/L (21-25) H 04/15/20 01:40 ABG O2 Saturation 94.5 % (94-98) 04/15/20 01:40 ABG Base Excess 1.6 mmol/L 04/15/20 01:40 FiO2 ROOM AIR 04/15/20 01:40 Sodium 133.1 mmol/L (137-145) L 04/16/20 04:48 Potassium 4.9 mmol/L (3.6-5.0) 04/16/20 04:48 Chloride 96 mmol/L (98-107) L 04/16/20 04:48 Carbon Dioxide 27 mmol/L (22-30) 04/16/20 04:48 Anion Gap 10 (5-19) 04/16/20 04:48 BUN 53 mg/dL (7-20) H 04/16/20 04:48 Creatinine 2.38 mg/dL (0.52-1.25) H 04/16/20 04:48 Est GFR ( Amer) 24 (>60) L 04/16/20 04:48 Est GFR (MDRD) Non-Af 20 (>60) L 04/16/20 04:48 Glucose 230 mg/dL (75-110) H 04/16/20 04:48 POC Glucose 252 mg/dL (70-110) H 04/16/20 11:28 Hemoglobin A1c % 7.5 % (4.7-6.0) H 04/16/20 04:48 Calcium 9.2 mg/dL (8.4-10.2) 04/16/20 04:48 Magnesium 2.0 mg/dL (1.6-2.3) 04/16/20 04:48 Total Bilirubin 0.4 mg/dL (0.2-1.3) 04/15/20 00:01 Direct Bilirubin 0.3 mg/dL (0.0-0.4) 04/15/20 00:01 Neonat Total Bilirubin 0.1 mg/dL (0.1-1.1) 04/15/20 00:01 Neonat Direct Bilirubin 0.0 mg/dL (0.0-0.3) 04/15/20 00:01 Neonat Indirect Bili 0.1 mg/dL (0.0-1.1) 04/15/20 00:01 AST 27 U/L (14-36) 04/15/20 00:01 ALT 26 U/L (<35) 04/15/20 00:01 Alkaline Phosphatase 72 U/L (38-126) 04/15/20 00:01 Creatine Kinase 113 U/L (30-135) 04/15/20 06:09 CK-MB (CK-2) 4.23 ng/mL (<4.55) 04/15/20 06:09 Troponin I < 0.012 ng/mL 04/15/20 06:09 NT-Pro-B Natriuret Pep 1020 pg/mL (<125) H 04/15/20 00:01 Total Protein 6.3 g/dL (6.3-8.2) 04/15/20 00:01 Albumin 3.5 g/dL (3.5-5.0) 04/15/20 00:01 Triglycerides 352 mg/dL (<150) H 04/16/20 04:48 Cholesterol 150.03 mg/dL (0-200) 04/16/20 04:48 LDL Cholesterol Direct 60 mg/dL (<100) 04/16/20 04:48 VLDL Cholesterol 70.4 mg/dL (10-31) H 04/16/20 04:48 HDL Cholesterol 37 mg/dL (>40) L 04/16/20 04:48 TSH 3.85 uIU/mL (0.47-4.68) 04/16/20 04:48 Free T4 1.39 ng/dL (0.78-2.19) 04/15/20 00:01 Free T3 pg/mL 2.48 pg/mL (2.77-5.27) L 04/15/20 00:01 Urine Color STRAW 04/15/20 01:00 Urine Appearance CLEAR 04/15/20 01:00 Urine pH 6.0 (5.0-9.0) 04/15/20 01:00 Ur Specific [place] 1.007 04/15/20 01:00 Urine Protein 30 mg/dL (NEGATIVE) H 04/15/20 01:00 Urine Glucose (UA) >=500 mg/dL (NEGATIVE) H 04/15/20 01:00 Urine Ketones NEGATIVE mg/dL (NEGATIVE) 04/15/20 01:00 Urine Blood NEGATIVE (NEGATIVE) 04/15/20 01:00 Urine Nitrite (Reflex) NEGATIVE (NEGATIVE) 04/15/20 01:00 Urine Bilirubin NEGATIVE (NEGATIVE) 04/15/20 01:00 Urine Urobilinogen NEGATIVE mg/dL (<2.0) 04/15/20 01:00 Leukocyte Esterase Rfl NEGATIVE (NEGATIVE) 04/15/20 01:00 Urine RBC (Auto) 1 /HPF 04/15/20 01:00 Urine Bacteria (Auto) TRACE /HPF 04/15/20 01:00 Urine WBC (Reflex) 7 /HPF 04/15/20 01:00 Squamous Epi Cells Auto <1 /HPF 04/15/20 01:00 Urine Ascorbic Acid NEGATIVE (NEGATIVE) 04/15/20 01:00 04/15/20 04/15/20 04/15/20 00:01 00:01 06:09 CK-MB (CK-2) 4.23 Troponin I < 0.012 < 0.012 NT-Pro-B Natriuret Pep 1020 H Impressions: Head CT 04/15/20 00:35 IMPRESSION: No acute intracranial findings. Hyperdense appearance of much of the left globe. Underlying hemorrhage is not excluded. Plan Time Spent: Greater than 30 Minutes Stroke Is this a Stroke Patient?: No Acute Heart Failure Is this a Heart Failure Patient?: No
== END 2020-04-16 13:09 | disposition home or self-care (01) | DRG 313 ==
LOC: ER 23:02 → EH 04-15 03:51 → 5 04-15 05:35
PROVIDERS: ADMIT Emergency Medicine; ATTEND Emergency Medicine
DX: R07.9 Chest pain, unspecified (principal); J96.91 Respiratory failure, unspecified with hypoxia; I13.0 Hypertensive heart and chronic kidney disease with heart failure and stage 1 through stage 4 chronic kidney disease, or unspecified chronic kidney disease; E66.2 Morbid (severe) obesity with alveolar hypoventilation; I50.9 Heart failure, unspecified; N18.30 Chronic kidney disease, stage 3 unspecified; E11.22 Type 2 diabetes mellitus with diabetic chronic kidney disease; E78.00 Pure hypercholesterolemia, unspecified; J32.9 Chronic sinusitis, unspecified; D63.1 Anemia in chronic kidney disease; E03.9 Hypothyroidism, unspecified; F41.9 Anxiety disorder, unspecified; F17.210 Nicotine dependence, cigarettes, uncomplicated; Z90.5 Acquired absence of kidney; Z85.528 Personal history of other malignant neoplasm of kidney; Z79.82 Long term (current) use of aspirin; Z79.4 Long term (current) use of insulin; Z79.899 Other long term (current) drug therapy
CPT/HCPCS: 36415; 70450; 71045; 80048; 80053; 80061; 81001; 82550; 82553; 82803; 82962; 83036; 83735; 83880; 84439; 84443; 84481; 84484; 85025; 85027; 93005; 93010; 99285; J1644; J1815; J3490

== ENCOUNTER 2020-04-18 19:26 | Emergency (ER) | payer MEDICARE, BC, OTHER ==
--- NOTE | 2020-04-18 21:39 | ER Document Report ---
ED Medical Screen (RME) - General Chief Complaint: Shortness Of Breath Stated Complaint: CHEST PAIN/SHORTNESS OF BREATH Time Seen by Provider: 04/18/20 21:01 Primary Care Provider: JOSE FARAH MD [Primary Care Provider] - Follow up as needed TRAVEL OUTSIDE OF THE [place] IN LAST 30 DAYS: No - HPI Notes: 04/18/20 21:38 70-year-old female with a history of type 2 diabetes, angina, CKD, hypertension, CHF presents to the emergency room with shortness of breath and chest pain that started early this afternoon, states she feels like someone was sitting on her chest. Reports pain is 4 out of 5, intermittent episodes. reports chest pain radiates to her back. Patient was admitted on Friday morning (04/15/2020) for a CHF exacerbation, they switched her Lasix to amlodipine without adding another diuretic. Patient states she was discharged the next day. She states that she has had some swelling in her right lower leg over the last couple of days she does wear compression stockings daily. Patient states that she does see Dr. Lackey, care program resident and states that he was supposed to prescribe her nitro but she has never received a prescription. Patient is also reporting she is having sinus pain when she was seen over the weekend, was given 1 dose of Augmentin but then was never given a prescription when she was discharged from the hospital, she is reporting nasal pressure nasal pain, and states is getting worse daily. Patient follows with Dr. Aguilera, her vest tailor, who took her off losartan because she states it made her potassium go too high so this is why she thinks that she was also placed on the amlodipine. Denies any nausea vomiting diarrhea, abdominal pain, blurred vision double vision loss of vision. Patient has not taken her p.m. dose of her amlodipine. I have greeted and performed a rapid initial assessment of this patient. A comprehensive ED assessment and evaluation of the patient, analysis of test results and completion of the medical decision making process will be conducted by additional ED providers. PHYSICAL EXAMINATION: GENERAL: chronically ill, morbid obesity and in no acute distress. HEAD: Atraumatic, normocephalic. EYES: Pupils equal round extraocular movements intact, conjunctiva are normal. NECK: Normal range of motion CV: s1, s2 regular LUNGS: diminished BS in all lobes. SKIN: Warm, Dry, normal turgor, no rashes or lesions noted. Right foot without pitting edema while compression stockings are on. - Related Data Allergies/Adverse Reactions: CHRISTOPHER Inhibitors [Christopher Inhibitors] Allergy (Severe, Verified 05/21/16 16:15) doxycycline [Doxycycline] Allergy (Severe, Verified 05/21/16 16:15) Home Medications: amilodipine Past Medical History - Past Medical History Cardiac Medical History: Reports: Hx Hypercholesterolemia, Hx Hypertension Denies: Hx Atrial Fibrillation, Hx Coronary Artery Disease, Hx DVT, Hx Heart Attack, Hx Pulmonary Embolism Pulmonary Medical History: Denies: Hx Asthma, Hx COPD, Hx Respiratory Failure, Hx Tuberculosis Neurological Medical History: Denies: Hx Seizures Endocrine Medical History: Reports: Hx Diabetes Mellitus Type 2, Hx Hypothyroidism. Denies: Hx Diabetes Mellitus Type 1, Hx Hyperthyroidism Renal/ Medical History: Reports: Hx End Stage Renal Disease - stg 3, Hx Renal Insufficiency Malignancy Medical History: Reports: Hx Renal (Kidney) Cancer GI Medical History: Denies: Hx Cirrhosis, Hx Hepatitis Musculoskeltal Medical History: Denies Hx Fibromyalgia, Denies Hx Gout Skin Medical History: Denies Hx Eczema, Denies Hx Psoriasis Psychiatric Medical History: Reports: Hx Dementia Denies: Hx Depression Infectious Medical History: Denies: Hx Hepatitis Past Surgical History: Reports: Hx Abdominal Surgery, Hx Orthopedic Surgery - Incision and drainage of foot abscess, Hx Tonsillectomy, Other - Right nephrectomy secondary to renal cell carcinoma in 1998. Denies: Hx Pacemaker - Immunizations Hx Diphtheria, Pertussis, Tetanus Vaccination: No - 15 years ago Physical Exam - Vital signs Vitals: Temp Pulse Resp BP Pulse Ox 98.6 F 82 16 183/71 H 97 04/18/20 19:45 04/18/20 19:45 04/18/20 19:45 04/18/20 19:45 04/18/20 19:45 Course - Vital Signs Vital signs: Temp Pulse Resp BP Pulse Ox 98.6 F 82 16 183/71 H 97 04/18/20 19:45 04/18/20 19:45 04/18/20 19:45 04/18/20 19:45 04/18/20 19:45 Doctor's Discharge - Discharge Referrals: JOSE FARAH MD [Primary Care Provider] - Follow up as needed
[2020-04-18] MEDS ORDERED: NITROGLYCERIN 0.4 MG/TAB 25 TAB/BOTTLE SL PRN (21:41)
--- NOTE | 2020-04-18 22:20 | RADIOLOGY REPORT (SQ) ---
EXAM DESCRIPTION: XR CHEST 1 VIEW COMPLETED DATE/TME: 04/18/2020 21:28 CLINICAL HISTORY: 70 years, Female, sob, hx CHF COMPARISON: Prior study from 04/15/2020 NUMBER OF VIEWS: One TECHNIQUE: Single frontal view of the chest was obtained LIMITATIONS: None. FINDINGS: Cardiac and mediastinal contours are stable. Bilateral perihilar opacity with vascular indistinctness is noted along with interstitial lines about the periphery of both lungs. No pneumothorax or large pleural effusion. IMPRESSION: Suspect mild interstitial edema. copyright 2010 [employer]- All Rights Reserved
[2020-04-18 22:34] LABS: ABSOLUTE EOSINOPHILS # (AUTO) 0.2 10^3/uL (0.0-0.6); ABSOLUTE LYMPHOCYTES (AUTO) 1.5 10^3/uL (0.5-4.7); ABSOLUTE MONOCYTES (AUTO) 0.6 10^3/uL (0.1-1.4); ABSOLUTE NEUT (AUTO) 5.1 10^3/uL (1.7-8.2); BASOPHILS % (AUTO) 0.4 % (0-2); EOSINOPHILS % (AUTO) 3.3 % (0-6); HEMATOCRIT 36.1 % (36.0-47.0); HEMOGLOBIN 12.2 g/dL (12.0-15.5); LYMPHOCYTES % (AUTO) 19.6 % (13-45); MEAN CORPUSCULAR HEMOGLOBIN 31.1 pg (27.0-33.4); MEAN CORPUSCULAR HGB CONC 33.8 g/dL (32.0-36.0); MEAN CORPUSCULAR VOLUME 92 fl (80-97); MONOCYTES % (AUTO) 8.5 % (3-13); PLATELET COUNT 287 10^3/uL (150-450); RED BLOOD COUNT 3.93 10^6/uL (3.72-5.28); RED CELL DISTRIBUTION WIDTH 15.4 % (11.5-14.0); SEGMENTED NEUTROPHILS % (AUTO) 68.2 % (42-78); TOTAL CELLS COUNTED % (AUTO) 100 %; WHITE BLOOD COUNT 7.5 10^3/uL (4.0-10.5)
[2020-04-18 22:56] LABS: ALBUMIN 4.1 g/dL (3.5-5.0); ALKALINE PHOSPHATASE 73 U/L (38-126); ANION GAP 6 (5-19); ASPARTATE AMINO TRANSFERASE 37 U/L (14-36); BILIRUBIN,DIRECT 0.3 mg/dL (0.0-0.4); BILIRUBIN,TOTAL 0.5 mg/dL (0.2-1.3); BLOOD UREA NITROGEN 51 mg/dL (7-20); CALCIUM 9.2 mg/dL (8.4-10.2); CARBON DIOXIDE 33 mmol/L (22-30); CHLORIDE 99 mmol/L (98-107); GLUCOSE 240 mg/dL (75-110); POTASSIUM 5.8 mmol/L (3.6-5.0); TOTAL PROTEIN 7.2 g/dL (6.3-8.2)
[2020-04-18 23:08] LABS: TROPONIN I 0.014 ng/mL
[2020-04-19 07:43] LABS: APPEARANCE,URINE CLEAR; BILIRUBIN,URINE NEGATIVE (NEGATIVE); COLOR,URINE YELLOW; GLUCOSE, URINE 150 mg/dL (NEGATIVE); KETONES,URINE NEGATIVE (NEGATIVE); LEUKOCYTE ESTERASE,URINE TRACE (NEGATIVE); NITRITE,URINE NEGATIVE (NEGATIVE); PROTEIN,URINE 100 mg/dL (NEGATIVE); URINE SPECIFIC GRAVITY 1.014; UROBILINOGEN,URINE NEGATIVE mg/dL (<2.0)
[2020-04-19] MEDS ORDERED: FUROSEMIDE INJ/PF 100 MG/10 ML SDV IV ONE (08:58)
[2020-04-19] MEDS ORDERED: ONDANSETRON HCL INJ/PF 4 MG/2 ML SDV IV ONE (09:22)
[2020-04-19 09:37] LABS: ABSOLUTE EOSINOPHILS # (AUTO) 0.3 10^3/uL (0.0-0.6); ABSOLUTE LYMPHOCYTES (AUTO) 1.3 10^3/uL (0.5-4.7); ABSOLUTE MONOCYTES (AUTO) 0.6 10^3/uL (0.1-1.4); ABSOLUTE NEUT (AUTO) 5.2 10^3/uL (1.7-8.2); BASOPHILS % (AUTO) 0.3 % (0-2); EOSINOPHILS % (AUTO) 4.1 % (0-6); HEMATOCRIT 36.9 % (36.0-47.0); HEMOGLOBIN 12.6 g/dL (12.0-15.5); LYMPHOCYTES % (AUTO) 17.8 % (13-45); MEAN CORPUSCULAR HEMOGLOBIN 31.1 pg (27.0-33.4); MEAN CORPUSCULAR VOLUME 92 fl (80-97); MONOCYTES % (AUTO) 8.3 % (3-13); PLATELET COUNT 297 10^3/uL (150-450); RED BLOOD COUNT 4.03 10^6/uL (3.72-5.28); RED CELL DISTRIBUTION WIDTH 15.2 % (11.5-14.0); SEGMENTED NEUTROPHILS % (AUTO) 69.5 % (42-78); TOTAL CELLS COUNTED % (AUTO) 100 %; WHITE BLOOD COUNT 7.5 10^3/uL (4.0-10.5)
[2020-04-19 09:55] LABS: ALBUMIN 3.9 g/dL (3.5-5.0); ALKALINE PHOSPHATASE 71 U/L (38-126); ANION GAP 5 (5-19); ASPARTATE AMINO TRANSFERASE 37 U/L (14-36); BILIRUBIN,DIRECT 0.3 mg/dL (0.0-0.4); BILIRUBIN,TOTAL 0.5 mg/dL (0.2-1.3); BLOOD UREA NITROGEN 44 mg/dL (7-20); CALCIUM 9.3 mg/dL (8.4-10.2); CARBON DIOXIDE 32 mmol/L (22-30); CHLORIDE 103 mmol/L (98-107); GLUCOSE 181 mg/dL (75-110); POTASSIUM 5.2 mmol/L (3.6-5.0); TOTAL PROTEIN 6.8 g/dL (6.3-8.2)
[2020-04-19 10:07] LABS: CREATINE KINASE MB 3.48 ng/mL (<4.55); TROPONIN I 0.013 ng/mL
--- NOTE | 2020-04-19 10:46 | ER Document Report ---
Entered by INES HERMAN SCRIBE 04/19/20 0836 Acting as scribe for:NALINI MUNGUIA MD ED General - General Chief Complaint: Shortness Of Breath Stated Complaint: CHEST PAIN/SHORTNESS OF BREATH Time Seen by Provider: 04/18/20 21:01 Primary Care Provider: JOSE FARAH MD [Primary Care Provider] - Follow up as needed MATHEW GARCIA MD [ACTIVE STAFF] - 04/24/20 12:30 pm Stas AGUILERA MD [ACTIVE STAFF] - Follow up in 3-5 days Mode of Arrival: Ambulatory Information source: Patient Notes: This 70 year old female patient with a history of morbid obesity, hypertension, hyperlipidemia, congestive heart failure, type 2 diabetes mellitus and hypothyroidism presents to the ED today for evaluation of shortness of breath and chest pain that stared yesterday afternoon. Patient states that it felt like something was "sitting on my chest" and that she "couldn't get a really good breath." Patient was seen here on 04/14 for the same complaint and was admitted for chest pain and respiratory failure with hypoxia. She was discharged on 04/16 and was started on Amlodipine and Losartan; however, patient states that she was told not to take Losartan due to her potassium levels. Review of the patient's pharmacy records show that the patient filled a prescription for Lasix on 04/05 and when asked about this, patient states that she has actually been on Lasix for "awhile" and was told to discontinue it during her admission here; however, there is no documentation suggesting this or that she was even taking it prior to admission. She was also advised to discontinue Victosa and Hyzaar which was documented. Dr. Farah is her PCP and Dr. Aguilera is her master scheduler. TRAVEL OUTSIDE OF THE [place] IN LAST 30 DAYS: No - Related Data Allergies/Adverse Reactions: CHRISTOPHER Inhibitors [Christopher Inhibitors] Allergy (Severe, Verified 05/21/16 16:15) doxycycline [Doxycycline] Allergy (Severe, Verified 05/21/16 16:15) Home Medications: amilodipine Past Medical History - General Information source: Patient, [facility] Records - Social History Smoking Status: Never Smoker Cigarette use (# per day): No Chew tobacco use (# tins/day): No Smoking Education Provided: No Frequency of alcohol use: None Drug Abuse: None Lives with: Spouse/Significant other Family History: Reviewed & Not Pertinent, DM, Hypertension, Thyroid Disfunction - Past Medical History Cardiac Medical History: Reports: Hx Congestive Heart Failure, Hx Hypercholesterolemia, Hx Hypertension Endocrine Medical History: Reports: Hx Diabetes Mellitus Type 2, Hx Hypothyroidism Renal/ Medical History: Reports: Hx End Stage Renal Disease - stg 3, Hx Renal Insufficiency Malignancy Medical History: Reports: Hx Renal (Kidney) Cancer Psychiatric Medical History: Reports: Hx Dementia Past Surgical History: Reports: Hx Abdominal Surgery, Hx Kidney (Renal Surgery) - Right nephrectomy secondary to renal cell carcinoma in 1998, Hx Orthopedic Surgery - Incision and drainage of foot abscess, Hx Tonsillectomy - Immunizations Hx Diphtheria, Pertussis, Tetanus Vaccination: No - 15 years ago Hx Pneumococcal Vaccination: 12/12/08 Review of Systems - Review of Systems Constitutional: No symptoms reported EENT: No symptoms reported Cardiovascular: See HPI, Chest pain Respiratory: See HPI, Short of breath Gastrointestinal: No symptoms reported Genitourinary: No symptoms reported Female Genitourinary: No symptoms reported Musculoskeletal: No symptoms reported Skin: No symptoms reported Hematologic/Lymphatic: No symptoms reported Neurological/Psychological: No symptoms reported -: Yes All other systems reviewed and negative Physical Exam - Vital signs Vitals: Temp Pulse Resp BP Pulse Ox 98.6 F 82 16 183/71 H 97 04/18/20 19:45 04/18/20 19:45 04/18/20 19:45 04/18/20 19:45 04/18/20 19:45 - General General appearance: Alert In distress: None - HEENT Head: Normocephalic, Atraumatic Eyes: Normal Pupils: PERRL - Respiratory Notes: Patient is comfortable, but becomes short of breath when she talks. She is currently 95-96% on room air. Rales in the bases. - Cardiovascular Rhythm: Regular Heart sounds: Normal auscultation Murmur: No Friction rub: No Gallop: None auscultated - Abdominal Inspection: Morbidly Obese Distension: No distension Bowel sounds: Normal Tenderness: Nontender - Abdomen soft Organomegaly: No organomegaly - Back Back: Normal, Nontender - Extremities General upper extremity: Normal inspection General lower extremity: Edema - Patient is wearing compression stockings up to her knees on both lower extremites, but there is still some pitting edema appr eciated under it. She states that she wears them during the day and takes them off at night. - Neurological Neuro grossly intact: Yes Orientation: AAOx4 [place] Coma Scale Eye Opening: Spontaneous May Coma Scale Verbal: Oriented [place] Coma Scale Motor: Obeys Commands May Coma Scale Total: 15 - Psychological Associated symptoms: Normal affect, Normal mood - Skin Skin Temperature: Warm Skin Moisture: Dry Skin Color: Normal Course - Re-evaluation Re-evalutation: 04/19/20 14:02 The patient has urinated at least a liter so far. She states that her breathing does feel better. Pulse oximetry readings will go up as high as 98 when she is sitting up and talking. We had a long talk about the nasal CPAP apparatus and I got pictures off the Internet for her. She is quite interested in this as she cannot tolerate the CPAP mask. 04/19/20 14:52 The patient was evaluated during the global COVID-19 pandemic and that diagnosis was suspected/considered upon their initial presentation. Their evaluation, treatment and testing was consistent with current guidelines for patients who present with complaints or symptoms that may be related to COVID-19. - Vital Signs Vital signs: Temp Pulse Resp BP Pulse Ox 98.4 F 73 18 159/59 H 91 L 04/19/20 06:46 04/19/20 06:46 04/19/20 14:17 04/19/20 14:17 04/19/20 14:17 - Laboratory Result Diagrams: 04/19/20 09:04 04/19/20 09:04 Laboratory results interpreted by me: 04/18/20 04/18/20 04/18/20 22:01 22:01 22:01 RDW 15.4 H Potassium 5.8 H Carbon Dioxide 33 H BUN 51 H Creatinine 2.19 H Est GFR ( Amer) 27 L Est GFR (MDRD) Non-Af 22 L Glucose 240 H POC Glucose AST 37 H ALT 40 H NT-Pro-B Natriuret Pep 1150 H Urine Protein Urine Glucose (UA) Ur Leukocyte Esterase 04/19/20 04/19/20 04/19/20 07:15 09:04 09:04 RDW 15.2 H Potassium 5.2 H Carbon Dioxide 32 H BUN 44 H Creatinine 1.88 H Est GFR ( Amer) 32 L Est GFR (MDRD) Non-Af 26 L Glucose 181 H POC Glucose AST 37 H ALT 40 H NT-Pro-B Natriuret Pep Urine Protein 100 H Urine Glucose (UA) 150 H Ur Leukocyte Esterase TRACE H 04/19/20 04/19/20 09:04 13:36 RDW Potassium Carbon Dioxide BUN Creatinine Est GFR ( Amer) Est GFR (MDRD) Non-Af Glucose POC Glucose 246 H AST ALT NT-Pro-B Natriuret Pep 1880 H Urine Protein Urine Glucose (UA) Ur Leukocyte Esterase - Diagnostic Test Radiology reviewed: Image reviewed, Reports reviewed - Chest x-ray done at 2140 on 04/18/2020 shows mild interstitial edema - EKG Interpretation by Me EKG shows normal: Sinus rhythm, [place], Intervals, QRS Complexes, ST-T Waves Rate: Normal - 83 Rhythm: NSR When compared to previous EKG there are: No significant change Discharge - Discharge Clinical Impression: CHF exacerbation Qualifiers: Heart failure type: unspecified Qualified Code(s): I50.9 - Heart failure, unspecified Condition: Stable Disposition: HOME, SELF-CARE Additional Instructions: Begin taking your daily Lasix tomorrow. Continue all the rest of your regular medications when you get come, check your sugars and dose your insulin accordingly. Drink plenty of water, but avoid sodium in your diet. Elevate your feet to help reduce the swelling and continue to wear your compression stockings. Follow-up with Dr. Garcia in the office on Friday at 12:30 PM. Be sure to ask about the nasal CPAP apparatus. Call Dr. Aguilera to schedule follow-up appointment to discuss your medications with him also. RETURN TO THE EMERGENCY ROOM IF ANY NEW OR WORSENING SYMPTOMS. Referrals: JOSE FARAH MD [Primary Care Provider] - Follow up as needed MATHEW GARCIA MD [ACTIVE STAFF] - 04/24/20 12:30 pm Stas AGUILERA MD [ACTIVE STAFF] - Follow up in 3-5 days I personally performed the services described in the documentation, reviewed and edited the documentation which was dictated to the scribe in my presence, and it accurately records my words and actions.
[2020-04-19 14:51] VITALS: BP 159/59
--- NOTE | 2020-04-19 15:16 | EKG REPORT ---
SEVERITY:- NORMAL ECG - SINUS RHYTHM : Confirmed by: Kenzie Oakes MD 19-Apr-2020 15:15:47
== END 2020-04-19 14:47 | disposition home or self-care (01) ==
LOC: ER 19:26
DX: I50.9 Heart failure, unspecified (principal); R06.02 Shortness of breath; R07.9 Chest pain, unspecified; E11.22 Type 2 diabetes mellitus with diabetic chronic kidney disease; I12.9 Hypertensive chronic kidney disease with stage 1 through stage 4 chronic kidney disease, or unspecified chronic kidney disease; N18.30 Chronic kidney disease, stage 3 unspecified; F03.90 Unspecified dementia, unspecified severity, without behavioral disturbance, psychotic disturbance, mood disturbance, and anxiety
CPT/HCPCS: 93005; 99285; 96374; 96375; 36415; 87086; 82553; 82962; 83735; 85025; 87088; 80053; 81001; 84484; 87186; 83880; 71045; 93010; J1940; J2405

== ENCOUNTER 2020-05-06 19:20 | Inpatient (IN) | payer MEDICARE, BC, OTHER ==
--- NOTE | 2020-05-06 19:40 | ER Document Report ---
ED Medical Screen (RME) - General Chief Complaint: Shortness Of Breath Stated Complaint: SHORTNESS OF BREATH Time Seen by Provider: 05/06/20 19:37 Primary Care Provider: JOSE FARAH MD [Primary Care Provider] - Follow up as needed Mode of Arrival: Wheelchair Information source: Patient Notes: 70-year-old female presented to ED for shortness of breath. She states she is positive for Covid 19. She states she tested on the but was started having symptoms the weekend before. She states she does have body aches all over. She states she just cannot get her breath. Her is in the hospital for the same symptoms. Daughter states she is also positive for the Covid virus and was before the parents were. I have greeted and performed a rapid initial assessment of this patient. A comprehensive ED assessment and evaluation of the patient, analysis of test results and completion of medical decision making process will be conducted by an additional ED providers. TRAVEL OUTSIDE OF THE [place] IN LAST 30 DAYS: No - Related Data Allergies/Adverse Reactions: CHRISTOPHER Inhibitors [Christopher Inhibitors] Allergy (Severe, Verified 05/21/16 16:15) doxycycline [Doxycycline] Allergy (Severe, Verified 05/21/16 16:15) Past Medical History - Past Medical History Cardiac Medical History: Reports: Hx Congestive Heart Failure, Hx Hypercholesterolemia, Hx Hypertension Denies: Hx Atrial Fibrillation, Hx Coronary Artery Disease, Hx DVT, Hx Heart Attack, Hx Pulmonary Embolism Pulmonary Medical History: Denies: Hx Asthma, Hx COPD, Hx Respiratory Failure, Hx Tuberculosis Neurological Medical History: Denies: Hx Seizures Endocrine Medical History: Reports: Hx Diabetes Mellitus Type 2, Hx Hypothyroidism. Denies: Hx Diabetes Mellitus Type 1, Hx Hyperthyroidism Renal/ Medical History: Reports: Hx End Stage Renal Disease - stg 3, Hx Renal Insufficiency Malignancy Medical History: Reports: Hx Renal (Kidney) Cancer GI Medical History: Denies: Hx Cirrhosis, Hx Hepatitis Musculoskeltal Medical History: Denies Hx Fibromyalgia, Denies Hx Gout Skin Medical History: Denies Hx Eczema, Denies Hx Psoriasis Psychiatric Medical History: Reports: Hx Dementia Denies: Hx Depression Infectious Medical History: Denies: Hx Hepatitis Past Surgical History: Reports: Hx Abdominal Surgery, Hx Kidney (Renal Surgery) - Right nephrectomy secondary to renal cell carcinoma in 1998, Hx Orthopedic Surgery - Incision and drainage of foot abscess, Hx Tonsillectomy, Other - Right nephrectomy secondary to renal cell carcinoma in 1998. Denies: Hx Pacemaker - Immunizations Hx Diphtheria, Pertussis, Tetanus Vaccination: No - 15 years ago Physical Exam - Vital signs Vitals: Temp Pulse Resp BP Pulse Ox 98.2 F 70 20 155/58 H 92 05/06/20 19:27 05/06/20 19:27 05/06/20 19:27 05/06/20 19:27 05/06/20 19:27 Course - Vital Signs Vital signs: Temp Pulse Resp BP Pulse Ox 98.2 F 70 20 155/58 H 92 05/06/20 19:27 05/06/20 19:27 05/06/20 19:27 05/06/20 19:27 05/06/20 19:27 Doctor's Discharge - Discharge Referrals: JOSE FARAH MD [Primary Care Provider] - Follow up as needed
--- NOTE | 2020-05-06 20:20 | RADIOLOGY REPORT (SQ) ---
XR CHEST 1 VIEW HISTORY: Shortness of breath. Covid positive. COMPARISON: 04/18/2020 FINDINGS: The heart size is enlarged with mild central pulmonary vascular congestion. No consolidation, pleural effusion, or pneumothorax is seen. No acute bony findings are seen. IMPRESSION: Mild pulmonary edema pattern, without pleural effusions or focal consolidation.
[2020-05-06 20:21] LABS: ABSOLUTE BASOPHILS # (AUTO) 0.1 10^3/uL (0.0-0.2); ABSOLUTE EOSINOPHILS # (AUTO) 0.1 10^3/uL (0.0-0.6); ABSOLUTE LYMPHOCYTES (AUTO) 1.6 10^3/uL (0.5-4.7); ABSOLUTE NEUT (AUTO) 4.1 10^3/uL (1.7-8.2); BASOPHILS % (AUTO) 0.9 % (0-2); EOSINOPHILS % (AUTO) 0.9 % (0-6); HEMATOCRIT 32.6 % (36.0-47.0); HEMOGLOBIN 11.7 g/dL (12.0-15.5); LYMPHOCYTES % (AUTO) 23.6 % (13-45); MEAN CORPUSCULAR HEMOGLOBIN 31.6 pg (27.0-33.4); MONOCYTES % (AUTO) 14.3 % (3-13); PLATELET COUNT 339 10^3/uL (150-450); RED BLOOD COUNT 3.71 10^6/uL (3.72-5.28); RED CELL DISTRIBUTION WIDTH 15.1 % (11.5-14.0); SEGMENTED NEUTROPHILS % (AUTO) 60.3 % (42-78); TOTAL CELLS COUNTED % (AUTO) 100 %; WHITE BLOOD COUNT 6.7 10^3/uL (4.0-10.5)
[2020-05-06] MEDS ORDERED: ONDANSETRON 4 MG TAB.RAPDIS PO ONE (20:33)
[2020-05-06 20:39] LABS: ALBUMIN 3.9 g/dL (3.5-5.0); ALKALINE PHOSPHATASE 65 U/L (38-126); ANION GAP 7 (5-19); ASPARTATE AMINO TRANSFERASE 44 U/L (14-36); BILIRUBIN,DIRECT 0.4 mg/dL (0.0-0.4); BILIRUBIN,TOTAL 0.6 mg/dL (0.2-1.3); BLOOD UREA NITROGEN 65 mg/dL (7-20); CARBON DIOXIDE 27 mmol/L (22-30); CHLORIDE 99 mmol/L (98-107); POTASSIUM 4.8 mmol/L (3.6-5.0)
[2020-05-06 20:42] LABS: GLUCOSE 48 mg/dL (75-110)
[2020-05-06 21:02] LABS: MEAN CORPUSCULAR VOLUME 88 fl (80-97)
[2020-05-06] MEDS ORDERED: NORMAL SALINE 500 ML IV ONE (21:45)
[2020-05-06] MEDS ORDERED: LOPERAMIDE HCL 2 MG CAPSULE PO ONE (21:45)
[2020-05-06 22:10] LABS: PHOSPHORUS 2.9 mg/dL (2.5-4.5)
[2020-05-06] MEDS ORDERED: ENOXAPARIN SODIUM INJ 120 MG/0.8 ML DISP.SYRIN SUBCUT ONE (23:33)
--- NOTE | 2020-05-06 23:42 | ER Document Report ---
ED General - General Chief Complaint: Shortness Of Breath Stated Complaint: SHORTNESS OF BREATH Time Seen by Provider: 05/06/20 19:37 Primary Care Provider: JOSE FARAH MD [Primary Care Provider] - Follow up as needed Mode of Arrival: Wheelchair Notes: 70-year-old female with medical conditions including hypertension hyperlipidemia diabetes CHF CKD distant renal carcinoma in remission presents with shortness of breath for the past approximately 1 day. Patient diagnosed with Covid appro ximately 4 days ago. Has been having frequent diarrhea of nonbloody nonblack stools approximately 3 times per day for the last at least 4 days. Has been having dry cough. Patient denies any chest pain, worsening lower extremity edema, calf pain, fever, dizziness, syncope, asthma/COPD/smoking history TRAVEL OUTSIDE OF THE [place] IN LAST 30 DAYS: No - Related Data Allergies/Adverse Reactions: CHRISTOPHER Inhibitors [Christopher Inhibitors] Allergy (Severe, Verified 05/06/20 20:32) doxycycline [Doxycycline] Allergy (Severe, Verified 05/06/20 20:32) Past Medical History - General Information source: Patient - Social History Smoking Status: Never Smoker Chew tobacco use (# tins/day): No Frequency of alcohol use: None Drug Abuse: None Family History: Reviewed & Not Pertinent, DM, Hypertension, Thyroid Disfunction - Past Medical History Cardiac Medical History: Reports: Hx Congestive Heart Failure, Hx Hypercholesterolemia, Hx Hypertension Denies: Hx Atrial Fibrillation, Hx Coronary Artery Disease, Hx DVT, Hx Heart Attack, Hx Pulmonary Embolism Pulmonary Medical History: Denies: Hx Asthma, Hx COPD, Hx Respiratory Failure, Hx Tuberculosis Neurological Medical History: Denies: Hx Seizures Endocrine Medical History: Reports: Hx Diabetes Mellitus Type 2, Hx Hypothyroidism. Denies: Hx Diabetes Mellitus Type 1, Hx Hyperthyroidism Renal/ Medical History: Reports: Hx End Stage Renal Disease - stg 3, Hx Renal Insufficiency Malignancy Medical History: Reports: Hx Renal (Kidney) Cancer GI Medical History: Denies: Hx Cirrhosis, Hx Hepatitis Musculoskeletal Medical History: Denies Hx Fibromyalgia, Denies Hx Gout Skin Medical History: Denies Hx Eczema, Denies Hx Psoriasis Psychiatric Medical History: Reports: Hx Dementia Denies: Hx Depression Infectious Medical History: Denies: Hx Hepatitis Past Surgical History: Reports: Hx Abdominal Surgery, Hx Kidney (Renal Surgery) - Right nephrectomy secondary to renal cell carcinoma in 1998, Hx Orthopedic Surgery - Incision and drainage of foot abscess, Hx Tonsillectomy, Other - Right nephrectomy secondary to renal cell carcinoma in 1998. Denies: Hx Pacemaker - Immunizations Hx Diphtheria, Pertussis, Tetanus Vaccination: No - 15 years ago Hx Pneumococcal Vaccination: 12/12/08 Review of Systems - Review of Systems Notes: REVIEW OF SYSTEMS: CONSTITUTIONAL : Denies fever, weight change EENT: Denies recent cold/sinus symptoms, denies throat pain CARDIOVASCULAR: Denies chest pain, NIKO RESPIRATORY: + cough, + shortness of breath. GASTROINTESTINAL: Denies abdominal pain, nausea/vomiting. GENITOURINARY: Denies difficulty urinating, painful urination. FEMALE GENITOURINARY: Denies abnormal vaginal bleeding, vaginal discharge. MUSCULOSKELETAL: Denies neck pain, back pain. SKIN: Denies rash or skin lesions. HEMATOLOGIC : Denies easy bruising or bleeding. LYMPHATIC: Denies swollen, enlarged glands. NEUROLOGICAL: Denies headache, denies change in gait. PSYCHIATRIC: Denies anxiety or stress or depression. Physical Exam - Vital signs Vitals: Temp Pulse Resp BP Pulse Ox 98.2 F 70 20 155/58 H 92 05/06/20 19:27 05/06/20 19:27 05/06/20 19:27 05/06/20 19:27 05/06/20 19:27 - Notes Notes: PHYSICAL EXAMINATION: GENERAL: Elderly woman sitting up in stretcher in no acute distress HEAD: Atraumatic, normocephalic. EYES: Pupils equal round and appropriate constriction, sclera anicteric, conjunctiva are normal. ENT: nares patent, mildly dry mucous membranes. NECK: Normal range of motion, supple without lymphadenopathy LUNGS: Faintly coarse breath sounds bilaterally, normal respiratory rate, normal respiratory effort, speaking in full sentences, no supplemental O2 HEART: Regular rate and rhythm without murmurs ABDOMEN: Soft, nontender, no guarding, no masses, no CVAT EXTREMITIES: Mild symmetric lower extremity edema bilaterally, no cyanosis NEUROLOGICAL: Awake, alert, conversing appropriately, moves all extremities spontaneously. PSYCH: Normal mood, normal affect. SKIN: Warm, Dry, normal turgor Course - Re-evaluation Re-evalutation: 05/06/20 23:39 Patient presenting with mild shortness of breath after Covid diagnosis. Patient also experiencing diarrhea and mildly dehydrated on exam. Patient's respiratory status adequate in ED. Satting 91% initially but currently satting 100% on room air with normal respiratory effort. No signs of impending respiratory failure. Lab work shows dehydration with elevated BUN and worsening creatinine consistent with acute kidney injury likely secondary to dehydration but possibly primary effect of Covid infection. Given patient's multiple comorbidities, presence of CHF, will need to be hydrated cautiously so contacted hospitalist Dr. Briseno at 10 PM for observation or admission. Obtain D-dimer because of higher comorbidity of PE with Covid infection with respiratory symptoms which was positive. Given patient's low GFR unable to obtain contrast CT study at this time, so ordered VQ scan. Upon being notified that ventilation study was performed with nebulizers and open room with high risk of exposure to staff and other patients I contacted the radiologist Dr. Garcia for possible alternatives. Dr. Garcia recommended obtaining a perfusion only study which is appropriate for this patient as she does not have a primary lung disease. Changed order and attempted to contact clinical dental technician but no answer at extension. Ordered a dose of Lovenox for empiric treatment pending diagnostic study. 05/07/20 00:[address] Briseno and accepted to medicine floor. I informed Dr. Briseno that perfusion study was ordered and pending and patient given first dose of empiric Lovenox. - Vital Signs Vital signs: Temp Pulse Resp BP Pulse Ox 98.9 F 70 19 136/68 H 100 05/06/20 22:31 05/06/20 19:27 05/07/20 00:01 05/07/20 00:01 05/07/20 00:01 - Laboratory Result Diagrams: 05/06/20 19:45 05/06/20 19:45 Laboratory results interpreted by me: 05/06/20 05/06/20 05/06/20 19:45 19:45 19:45 RBC 3.71 L Hgb 11.7 L Hct 32.6 L RDW 15.1 H Slope % (Auto) 14.3 H D-Dimer 1.78 H Sodium 132.8 L BUN 65 H Creatinine 2.26 H Est GFR ( Amer) 26 L Est GFR (MDRD) Non-Af 21 L Glucose 48 L AST 44 H NT-Pro-B Natriuret Pep 05/06/20 19:45 RBC Hgb Hct RDW Slope % (Auto) D-Dimer Sodium BUN Creatinine Est GFR ( Amer) Est GFR (MDRD) Non-Af Glucose AST NT-Pro-B Natriuret Pep 1020 H - EKG Interpretation by Me Additional EKG results interpreted by me: 05/07/20 00:11 Heart rate 66, sinus rhythm, no significant ST elevations or depressions, no significant T wave abnormalities, QTc 432 Discharge - Discharge Clinical Impression: COVID-19, Acute on chronic renal insufficiency, Dehydration Diarrhea Qualifiers: Diarrhea type: unspecified type Qualified Code(s): R19.7 - Diarrhea, unspecified Chronic congestive heart failure Qualifiers: Heart failure type: unspecified Qualified Code(s): I50.9 - Heart failure, unspecified Disposition: ADMITTED INPATIENT Admitting Provider: Pending Sale To [facility] Unit Admitted: Medical Floor Referrals: JOSE FARAH MD [Primary Care Provider] - Follow up as needed
[2020-05-06] MEDS ORDERED: FAMOTIDINE 20 MG TABLET PO SCH (23:45)
[2020-05-06] MEDS ORDERED: ACETAMINOPHEN 325 MG TABLET PO PRN (23:55)
--- NOTE | 2020-05-07 00:15 | PDOC H&P ---
History of Present Illness Admission Date/PCP: JOSE FARAH MD Patient complains of: Shortness of breath History of Present Illness: GUERO NOBLE is a 70 year old female with a history of hypertension, CKD, hyperlipidemia, diabetes, hypothyroidism who was diagnosed with COVID-19 4 days back and was being managed symptomatically at home presents to ER this evening with worsening of shortness of breath since this morning. Patient reports that cough has worsened and has started having watery diarrhea. She also endorses generalized body aches and weakness but denies fever, chills, chest pain, nausea, vomiting, abdominal pain, dizziness. On arrival at the ER patient was saturating 90% on room air which improved to 100% with 2 L intranasal oxygen. Past Medical History Cardiac Medical History: Reports: Congestive Heart Failure, Hyperlipidema, Hypertension Denies: Atrial Fibrillation, Coronary Artery Disease, DVT, Myocardial Infarction, Pulmonary Embolism Pulmonary Medical History: Denies: Asthma, Chronic Obstructive Pulmonary Disease (COPD), Respiratory Failure, Tuberculosis Neurological Medical History: Denies: Seizures Endocrine Medical History: Reports: Diabetes Mellitus Type 2, Hypothyroidism Denies: Diabetes Mellitus Type 1, Hyperthyroidism Renal/ Medical History: Reports: End Stage Renal Disease - stg 3 Malignancy Medical History: Reports: Renal (Kidney) Cancer GI Medical History: Denies: Cirrhosis, Hepatitis Musculoskeltal Medical History: Denies: Fibromyalgia, Gout Skin Medical History: Denies: Eczema, Psoriasis Psychiatric Medical History: Reports: Dementia Denies: Depression Hematology: Reports: Anemia - Chronic due to renal failure Denies: Bleeding Tendencies Past Surgical History Past Surgical History: Reports: Orthopedic Surgery - Incision and drainage of foot abscess, Tonsillectomy, Other - Right nephrectomy secondary to renal cell carcinoma in 1998 Denies: Pacemaker Social History Information Source: Patient Lives with: Family Smoking Status: Never Smoker Electronic Cigarette use?: No Frequency of Alcohol Use: None Hx Recreational Drug Use: No Drugs: None Hx Prescription Drug Abuse: No - Advance Directive Resuscitation Status: Full Code Family History Family History: Reviewed & Not Pertinent, DM, Hypertension, Thyroid Disfunction Parental Family History Reviewed: Yes Children Family History Reviewed: Yes Sibling(s) Family History Reviewed.: Yes Medication/Allergy Home Medications: Aspirin [Aspirin 81 mg Chewable Tablet] 81 mg PO QHS 12/13/11 Atorvastatin Calcium [Lipitor 40 mg Tablet] 40 mg PO QHS 12/13/11 Insulin Glargine,Hum.rec.anlog [Lantus] 70 unit SQ QHS 12/13/11 Fenofibrate Nanocrystallized [Tricor 145 mg Tablet] 145 mg PO DAILY tablet 05/23/16 Insulin Aspart [Novolog Flexpen] 0 unit SUBCUT .SLD SCALE 04/15/20 Levothyroxine Sodium [Synthroid] 175 mcg PO Q6AM 04/15/20 Amlodipine Besylate [Norvasc 2.5 mg Tablet] 2.5 mg PO Q12 #60 tablet 04/16/20 Carvedilol [Coreg 12.5 mg Tablet] 25 mg PO BID 04/16/20 Losartan Potassium [Cozaar 50 mg Tablet] 50 mg PO DAILY #30 tablet 04/16/20 Allergies/Adverse Reactions: CHRISTOPHER Inhibitors [Christopher Inhibitors] Allergy (Severe, Verified 05/06/20 20:32) doxycycline [Doxycycline] Allergy (Severe, Verified 05/06/20 20:32) Review of Systems Constitutional: PRESENT: as per HPI Eyes: ABSENT: visual disturbances Ears: ABSENT: hearing changes Nose, Mouth, and Throat: ABSENT: as per HPI, headache(s), mouth pain, sore throat, vertigo, other Cardiovascular: PRESENT: dyspnea on exertion, edema Respiratory: PRESENT: as per HPI Gastrointestinal: PRESENT: as per HPI Genitourinary: ABSENT: dysuria, hematuria Musculoskeletal: ABSENT: joint swelling Integumentary: PRESENT: rash Neurological: ABSENT: abnormal gait, abnormal speech, confusion, dizziness, focal weakness, syncope Endocrine: ABSENT: cold intolerance, heat intolerance, polydipsia, polyuria Hematologic/Lymphatic: ABSENT: easy bleeding, easy bruising Physical Exam Vital Signs: Temp Pulse Resp BP Pulse Ox 98.9 F 70 19 136/68 H 100 05/06/20 22:31 05/06/20 19:27 05/07/20 00:01 05/07/20 00:01 05/07/20 00:01 Intake & Output 05/05/20 05/06/20 05/07/20 06:59 06:59 06:59 Weight 117.9 kg Additional comments: GENERAL APPEARANCE: In mild respiratory distress, on intranasal oxygen, alert and oriented x3 HEENT: Normocephalic and atraumatic. No scleral icterus. Moist oral mucosa NECK: Supple. No lymphadenopathy or tenderness. No carotid bruit. No JVD CHEST: Symmetric. Nontender to palpation. LUNGS: Breath sounds are equal and clear bilaterally. No wheezes, rhonchi, or rales. HEART: Regular rate and rhythm with normal S1 and S2. No murmurs, gallops, or rubs. ABDOMEN: Full, soft, positive bowel sounds, no direct or rebound tenderness, no organomegaly appreciated. No CVA tenderness EXTREMITIES: Has +1 pitting edema bilaterally on lower extremities. There is a stage II pressure ulcer on the right foot. There is healed ulcer on the left MUSCULOSKELETAL: No deformity, atrophy or swelling noted PSYCHIATRIC: The patient is awake, alert, and oriented x3. Recent and remote memory is intact. Appropriate mood and affect. NEUROLOGIC: No focal sensory or motor deficits are noted. Results Laboratory Results: 05/06/20 19:45 05/06/20 19:45 05/06/20 05/06/20 05/06/20 19:45 19:45 19:45 WBC 6.7 RBC 3.71 L Hgb 11.7 L Hct 32.6 L MCV 88 D MCH 31.6 MCHC 36.0 RDW 15.1 H Plt Count 339 Seg Neutrophils % 60.3 Sodium 132.8 L Potassium 4.8 Chloride 99 Carbon Dioxide 27 Anion Gap 7 BUN 65 H Creatinine 2.26 H Est GFR ( Amer) 26 L Glucose 48 L Calcium 9.0 Phosphorus 2.9 Magnesium 2.3 Total Bilirubin 0.6 AST 44 H Alkaline Phosphatase 65 Total Protein 7.0 Albumin 3.9 05/06/20 05/06/20 05/06/20 19:45 19:45 19:45 Creatine Kinase 132 Troponin I 0.013 NT-Pro-B Natriuret Pep 1020 H Impressions: Chest X-Ray 05/06/20 19:37 IMPRESSION: Mild pulmonary edema pattern, without pleural effusions or focal consolidation. Assessment and Plan - Diagnosis (1) Acute respiratory failure with hypoxia Is this a current diagnosis for this admission?: Yes Plan: Patient was diagnosed with COVID-19 4 days but Presented with worsening of shortness of breath On arrival oxygen saturation was 90% which improved to above 95% on 2 L intranasal oxygen Continue treating the underlying cause which is multifactorial including COVID- 19, heart failure and possible PE (2) COVID-19 Is this a current diagnosis for this admission?: Yes Plan: Was confirmed 4 days but to have a positive COVID-19 Now came with shortness of breath with hypoxia Continue intranasal oxygen and titrate for saturation greater than 94% Started on dexamethasone 6 mg daily Gave convulsant plasma Planning to give remdesivir in the a.m. Follow-up with ferritin, CK, CRP, LDH levels Tylenol as needed for fever (3) Elevated d-dimer Is this a current diagnosis for this admission?: Yes Plan: D-dimer on presentation was elevated to 1.78 Unable to obtain CTA due to advanced CKD Patient was given first dose of therapeutic Lovenox ER Due to his renal status we will switch her to Lovenox in the morning Will obtain VQ scan (4) Chronic congestive heart failure Qualifiers: Heart failure type: unspecified Qualified Code(s): I50.9 - Heart failure, unspecified Is this a current diagnosis for this admission?: Yes Plan: Chest x-ray shows signs of pulmonary vascular congestion BNP was elevated 1020 Echo note found in her chart and patient denies history of heart failure in the past Could be contributing to presenting symptoms Hospital on Lasix 20 mg IV every 12 hourly (5) CKD (chronic kidney disease), stage IV Is this a current diagnosis for this admission?: Yes Plan: Currently BUN/creatinine is around baseline Will dose medications renally and avoid nephrotoxic drugs (6) DM type 2, uncontrolled, with retinopathy Is this a current diagnosis for this admission?: Yes Plan: Patient presents with hypoglycemia which was corrected Placed her on sliding scale insulin with hypoglycemia protocol (7) Hyperlipidemia Qualifiers: Hyperlipidemia type: unspecified Qualified Code(s): E78.5 - Hyperlipidemia, unspecified Is this a current diagnosis for this admission?: Yes Plan: Continue home losartan (8) Hypertension Qualifiers: Hypertension type: essential hypertension Qualified Code(s): I10 - Essential (primary) hypertension Is this a current diagnosis for this admission?: Yes Plan: Will resume home medications Low-sodium diet (9) Morbid obesity Is this a current diagnosis for this admission?: Yes Plan: BMI 45.3 obese presentation Provide counseling including dietary change and exercise (10) Pressure ulcer of right foot, stage 2 Is this a current diagnosis for this admission?: Yes Plan: Daily dressing change, consult wound care - Time Time Spent with patient: 35 or more minutes Medications reviewed and adjusted accordingly: Yes Anticipated Discharge Disposition: Home, Self Care Anticipated Discharge Timeframe: within 72 hours - Inpatient Certification Medical Necessity: Significant Comorbidiites Make Outpatient Treatment Too Risky, Need Close Monitoring Due to Risk of Patient Decompensation, Need For Continuous Telemetry Monitoring Post Hospital Care: D/C or Transfer Summary
[2020-05-07] MEDS: DEXAMETHASONE SOD PHOS INJ 10 MG/1 ML VIAL IV SCH (01:05)
[2020-05-07] MEDS: FAMOTIDINE 20 MG TABLET PO SCH ×2 (01:05→21:51)
[2020-05-07] MEDS ORDERED: DEXTROSE 40% GEL 15 GM TUBE X 2 PO PRN (05:00)
[2020-05-07] MEDS ORDERED: DEXTROSE 50%-WATER SYRINGE 25 GM/50 ML DOSE IV PRN (05:00)
[2020-05-07] MEDS ORDERED: DEXTROSE 50%-WATER SYRINGE 12.5 GM/25 ML DOSE IV PRN (05:00)
[2020-05-07] MEDS ORDERED: DEXTROSE 40% GEL 15 GM TUBE PO PRN (05:00)
[2020-05-07] MEDS ORDERED: GLUCAGON,HUMAN RECOMB 1 MG INJ IM PRN (05:00)
[2020-05-07] MEDS ORDERED: HEPARIN SOD (PORCINE) 5,000 UNIT/ML 1 ML VIAL SUBCUT SCH (06:00)
[2020-05-07 06:11] LABS: C-REACTIVE PROTEIN 47.9 mg/L (<10.0)
[2020-05-07 06:45] LABS: FERRITIN 63.2 ng/mL (11.1-264.0)
[2020-05-07] MEDS: INSULIN LISPRO 100 UNIT/ML 3 ML VIAL SUBCUT SCH ×4 (07:45→21:51)
[2020-05-07] MEDS ORDERED: HEPARIN SOD (PORCINE) 1,000 UNIT/ML 10 ML VIAL IV ONE (08:08)
[2020-05-07 08:27] LABS: ANION GAP 10 (5-19); BLOOD UREA NITROGEN 60 mg/dL (7-20); CALCIUM 8.4 mg/dL (8.4-10.2); CARBON DIOXIDE 22 mmol/L (22-30); CHLORIDE 99 mmol/L (98-107); GLUCOSE 270 mg/dL (75-110)
[2020-05-07 08:31] LABS: POTASSIUM 5.9 mmol/L (3.6-5.0)
[2020-05-07] MEDS: ASCORBIC ACID 500 MG TABLET PO SCH ×2 (09:21→17:27)
[2020-05-07] MEDS: ZINC SULFATE 220 MG CAPSULE PO SCH (09:21)
[2020-05-07] MEDS: CHOLECALCIFEROL (D3) 1,000 UNIT (25 MCG) TABLET PO SCH (09:22)
[2020-05-07] MEDS: CARVEDILOL 12.5 MG TABLET PO SCH ×2 (09:22→17:27)
[2020-05-07] MEDS: AMLODIPINE BESYLATE 2.5 MG TABLET PO SCH ×2 (09:22→21:51)
[2020-05-07] MEDS: LOSARTAN POTASSIUM 50 MG TABLET PO SCH ×2 (09:22→09:54)
[2020-05-07] MEDS: FUROSEMIDE INJ/PF 20 MG/2 ML SDV IV SCH ×2 (09:23→21:52)
[2020-05-07 09:32] LABS: ABSOLUTE LYMPHOCYTES (AUTO) 0.3 10^3/uL (0.5-4.7); ABSOLUTE MONOCYTES (AUTO) 0.1 10^3/uL (0.1-1.4); ABSOLUTE NEUT (AUTO) 2.6 10^3/uL (1.7-8.2); BASOPHILS % (AUTO) 0.1 % (0-2); EOSINOPHILS % (AUTO) 0.1 % (0-6); HEMATOCRIT 33.5 % (36.0-47.0); HEMOGLOBIN 11.5 g/dL (12.0-15.5); LYMPHOCYTES % (AUTO) 11.1 % (13-45); MEAN CORPUSCULAR HGB CONC 34.5 g/dL (32.0-36.0); MEAN CORPUSCULAR VOLUME 90 fl (80-97); MONOCYTES % (AUTO) 3.6 % (3-13); PLATELET COUNT 318 10^3/uL (150-450); RED BLOOD COUNT 3.73 10^6/uL (3.72-5.28); SEGMENTED NEUTROPHILS % (AUTO) 85.1 % (42-78); TOTAL CELLS COUNTED % (AUTO) 100 %; WHITE BLOOD COUNT 3.1 10^3/uL (4.0-10.5)
[2020-05-07 09:37] LABS: INTERNATIONAL RATION (INR) 1.11; PROTHROMBIN TIME 14.5 SEC (11.4-15.4)
[2020-05-07 09:38] LABS: PARTIAL THROMBOPLASTIN TIME 45.4 SEC (23.5-35.8)
[2020-05-07] MEDS ORDERED: ASCORBIC ACID 500 MG TABLET PO SCH (10:00)
[2020-05-07] MEDS: HEPARIN SODIUM,PORCINE/D5W 25,000 UNIT/250 ML RTUINJ IV PRN (10:27)
[2020-05-07] MEDS ORDERED: HEPARIN SOD (PORCINE) 1,000 UNIT/ML 10 ML VIAL IV PRN (11:08)
--- NOTE | 2020-05-07 13:03 | RADIOLOGY REPORT (SQ) ---
EXAM DESCRIPTION: NM LUNG PERFUSION SCAN IMAGES COMPLETED DATE/TIME: 05/07/2020 12:41 pm REASON FOR STUDY: PERFUSION ONLY, SOB positive dimer J96.01 ACUTE RESPIRATORY FAILURE WITH HYPOXIA Z79.01 DAY CARE HOME MOTHER (CURRENT) USE OF ANTICOAGULANTS COMPARISON: Chest radiograph 05/06/2020 RADIONUCLIDE AND DOSE: 5.44 millicuries TC-99m MAA The route of agent administration: Intravenous TECHNIQUE: Anterior and posterior views of the lungs acquired following injection of MAA. LIMITATIONS: Only anterior and posterior views of the lungs were acquired as the patient could not t olerate lying flat. FINDINGS: PERFUSION: Perfusion images with normal homogenous activity and no wedge-shaped or segment al defects. OTHER: No other significant finding. IMPRESSION: No definite perfusion defects on these limited anterior and posterior only views of the lungs. TECHNICAL DOCUMENTATION: JOB ID: [id number] [employer]- All Rights Reserved Reading location - IP/workstation name: [email or web address]
--- NOTE | 2020-05-07 14:55 | PDOC PROGRESS REPORT ---
Subjective Progress Note for:: 05/07/20 Subjective:: Patient seen on mornign rounds. Resting upright in chair comfortably. Pt with positive COVID test from outside provider x4 days ago, plan to obtain these records. Admitted for worsening SOB. She tells me her is currently being treated here for COVID as well. No acute complaints or concerns. Reason For Visit: HYPOXIA DUE TO COVID 19 Physical Exam Vital Signs: Temp Pulse Resp BP Pulse Ox 98.3 F 71 19 154/56 H 94 05/07/20 11:08 05/07/20 11:08 05/07/20 11:08 05/07/20 11:08 05/07/20 11:08 Intake & Output 05/06/20 05/07/20 05/08/20 06:59 06:59 06:59 Intake Total 500 Balance 500 Weight 119.7 kg General appearance: PRESENT: no acute distress, cooperative, obese Head exam: PRESENT: atraumatic, normocephalic Eye exam: ABSENT: scleral icterus Mouth exam: PRESENT: moist, tongue midline Neck exam: PRESENT: full ROM. ABSENT: carotid bruit, JVD, lymphadenopathy, tenderness Respiratory exam: PRESENT: clear to auscultation stephanie, symmetrical, unlabored. ABSENT: rales, rhonchi, tachypnea, wheezes Cardiovascular exam: PRESENT: RRR, +S1, +S2. ABSENT: diastolic murmur, systolic murmur Pulses: PRESENT: normal radial pulses GI/Abdominal exam: PRESENT: soft. ABSENT: tenderness Extremities exam: PRESENT: full ROM, +1 edema - bilaterally Musculoskeletal exam: PRESENT: ambulatory, full ROM. ABSENT: deformity, dislocation Neurological exam: PRESENT: alert, awake, oriented to person, oriented to place, oriented to time, oriented to situation, CN II-XII grossly intact. ABSENT: altered Psychiatric exam: PRESENT: appropriate affect, normal mood Skin exam: PRESENT: dry, intact, warm Results Laboratory Results: 05/07/20 08:55 05/07/20 05:30 05/06/20 05/06/20 05/06/20 19:45 19:45 19:45 WBC 6.7 RBC 3.71 L Hgb 11.7 L Hct 32.6 L MCV 88 D MCH 31.6 MCHC 36.0 RDW 15.1 H Plt Count 339 Seg Neutrophils % 60.3 Sodium 132.8 L Potassium 4.8 Chloride 99 Carbon Dioxide 27 Anion Gap 7 BUN 65 H Creatinine 2.26 H Est GFR ( Amer) 26 L Glucose 48 L Calcium 9.0 Phosphorus 2.9 Magnesium 2.3 Ferritin Total Bilirubin 0.6 AST 44 H Alkaline Phosphatase 65 C-Reactive Protein Total Protein 7.0 Albumin 3.9 Blood Type 05/07/20 05/07/20 05/07/20 01:22 05:30 05:30 WBC RBC Hgb Hct MCV MCH MCHC RDW Plt Count Seg Neutrophils % Sodium 131.3 L Potassium 5.9 H D Chloride 99 Carbon Dioxide 22 Anion Gap 10 BUN 60 H Creatinine 2.08 H Est GFR ( Amer) 28 L Glucose 270 H Calcium 8.4 Phosphorus Magnesium Ferritin 63.20 Total Bilirubin AST Alkaline Phosphatase C-Reactive Protein 47.9 H Total Protein Albumin Blood Type A POSITIVE 05/07/20 08:55 WBC 3.1 L RBC 3.73 Hgb 11.5 L Hct 33.5 L MCV 90 MCH 31.0 MCHC 34.5 RDW 15.0 H Plt Count 318 Seg Neutrophils % 85.1 H Sodium Potassium Chloride Carbon Dioxide Anion Gap BUN Creatinine Est GFR ( Amer) Glucose Calcium Phosphorus Magnesium Ferritin Total Bilirubin AST Alkaline Phosphatase C-Reactive Protein Total Protein Albumin Blood Type 05/06/20 05/06/20 05/06/20 19:45 19:45 19:45 Creatine Kinase 132 Troponin I 0.013 NT-Pro-B Natriuret Pep 1020 H 05/07/20 05:30 Creatine Kinase 97 Troponin I NT-Pro-B Natriuret Pep Impressions: Chest X-Ray 05/06/20 19:37 IMPRESSION: Mild pulmonary edema pattern, without pleural effusions or focal consolidation. Lung Scan-VQ NM 05/07/20 00:00 IMPRESSION: No definite perfusion defects on these limited anterior and posterior only views of the lungs. Assessment and Plan - Diagnosis (1) Acute respiratory failure with hypoxia Is this a current diagnosis for this admission?: Yes Plan: Patient was diagnosed with COVID-19 4 days ago outpatient. On arrival oxygen saturation was 90% O2 sat consistently >94% on 2L NC. Continue treating the underlying cause which is multifactorial (2) COVID-19 Is this a current diagnosis for this admission?: Yes Plan: Was confirmed 4 days but to have a positive COVID-19 O2 sat >94% on 2L NC. Continue dexamethasone 6 mg daily Continue convulesant plasma Planning to give remdesivir in the a.m; pending renal function. Follow-up with ferritin, CK, CRP, LDH levels, monitor for improvement. Tylenol as needed for fever. (3) Chronic congestive heart failure Qualifiers: Heart failure type: unspecified Qualified Code(s): I50.9 - Heart failure, unspecified Is this a current diagnosis for this admission?: Yes Plan: Chest x-ray shows signs of pulmonary vascular congestion BNP was elevated 1020 Echo note found in her chart and patient denies history of heart failure in the past Could be contributing to presenting symptoms Continue Lasix 20 mg IV every 12 hourly. Consider outpatient lasix tx following disposition. (4) Elevated d-dimer Is this a current diagnosis for this admission?: Yes Plan: D-dimer on presentation was elevated to 1.78. Unable to obtain CTA due to advanced CKD. VQ scan without acute process. Continue Heparin drip as pt hypercoagulable state (5) CKD (chronic kidney disease), stage IV Is this a current diagnosis for this admission?: Yes Plan: Currently BUN/creatinine is around baseline Will dose medications renally and avoid nephrotoxic drugs Monitor daily BMP (6) DM type 2, uncontrolled, with retinopathy Is this a current diagnosis for this admission?: Yes Plan: Patient presents with hypoglycemia which was corrected Holding oral medications while admitted. Most recent Hem A1c 7.5% (04/16/2020). Patient is placed on a consistent carb diet. Accu-Cheks before meals and at bedtime with Humalog for sliding scale coverage. Hypoglycemia protocol in place. (7) Hyperlipidemia Qualifiers: Hyperlipidemia type: unspecified Qualified Code(s): E78.5 - Hyperlipidemia, unspecified Is this a current diagnosis for this admission?: Yes Plan: Continue home losartan (8) Hypertension Qualifiers: Hypertension type: essential hypertension Qualified Code(s): I10 - Essential (primary) hypertension Is this a current diagnosis for this admission?: Yes Plan: Consistently elevated in 140/50s Will resume home medications Low-sodium diet (9) Pressure ulcer of right foot, stage 2 Is this a current diagnosis for this admission?: Yes Plan: Daily dressing change, consult wound care (10) Morbid obesity Is this a current diagnosis for this admission?: Yes Plan: BMI 45.3 obese presentation Provide counseling including dietary change and exercise - Time Time Spent with patient: Less than 15 minutes Medications reviewed and adjusted accordingly: Yes Anticipated Discharge Disposition: Home, Self Care Anticipated Discharge Timeframe: undetermined at this time
[2020-05-07 15:50] LABS: APPEARANCE,URINE CLEAR; BILIRUBIN,URINE NEGATIVE (NEGATIVE); COLOR,URINE STRAW; GLUCOSE, URINE 150 mg/dL (NEGATIVE); KETONES,URINE NEGATIVE (NEGATIVE); LEUKOCYTE ESTERASE,URINE TRACE (NEGATIVE); NITRITE,URINE NEGATIVE (NEGATIVE); PROTEIN,URINE NEGATIVE (NEGATIVE); URINE SPECIFIC GRAVITY 1.008; UROBILINOGEN,URINE NEGATIVE mg/dL (<2.0)
--- NOTE | 2020-05-07 19:23 | EKG REPORT ---
SEVERITY:- NORMAL ECG - SINUS RHYTHM : Confirmed by: Jim Lemus MD 07-May-2020 19:22:08
[2020-05-07] MEDS: ATORVASTATIN CALCIUM 40 MG TABLET PO SCH (21:51)
[2020-05-07] MEDS: ASPIRIN 81 MG TABLET, CHEWABLE PO SCH (21:51)
[2020-05-08] MEDS: HEPARIN SODIUM,PORCINE/D5W 25,000 UNIT/250 ML RTUINJ IV PRN (04:16)
[2020-05-08] MEDS: LEVOTHYROXINE SODIUM 0.1 MG TABLET PO SCH (06:07)
[2020-05-08] MEDS: LEVOTHYROXINE SODIUM 0.075 MG TABLET PO SCH (06:07)
[2020-05-08 06:43] LABS: APPEARANCE,URINE CLEAR; BILIRUBIN,URINE NEGATIVE (NEGATIVE); COLOR,URINE STRAW; GLUCOSE, URINE >=500 mg/dL (NEGATIVE); KETONES,URINE NEGATIVE (NEGATIVE); LEUKOCYTE ESTERASE,URINE NEGATIVE (NEGATIVE); NITRITE,URINE NEGATIVE (NEGATIVE); PROTEIN,URINE 30 mg/dL (NEGATIVE); UROBILINOGEN,URINE NEGATIVE mg/dL (<2.0)
[2020-05-08 07:07] LABS: HEMATOCRIT 31.8 % (36.0-47.0); HEMOGLOBIN 10.9 g/dL (12.0-15.5); MEAN CORPUSCULAR HEMOGLOBIN 30.5 pg (27.0-33.4); MEAN CORPUSCULAR HGB CONC 34.2 g/dL (32.0-36.0); MEAN CORPUSCULAR VOLUME 89 fl (80-97); PLATELET COUNT 344 10^3/uL (150-450); RED BLOOD COUNT 3.56 10^6/uL (3.72-5.28); WHITE BLOOD COUNT 4.9 10^3/uL (4.0-10.5)
[2020-05-08 07:28] LABS: ALBUMIN 3.4 g/dL (3.5-5.0); ALKALINE PHOSPHATASE 75 U/L (38-126); ANION GAP 9 (5-19); ASPARTATE AMINO TRANSFERASE 26 U/L (14-36); BILIRUBIN,DIRECT 0.4 mg/dL (0.0-0.4); BILIRUBIN,TOTAL 0.4 mg/dL (0.2-1.3); BLOOD UREA NITROGEN 63 mg/dL (7-20); CALCIUM 8.5 mg/dL (8.4-10.2); CARBON DIOXIDE 25 mmol/L (22-30); CHLORIDE 99 mmol/L (98-107); GLUCOSE 362 mg/dL (75-110); POTASSIUM 5.3 mmol/L (3.6-5.0); TOTAL PROTEIN 6.1 g/dL (6.3-8.2)
[2020-05-08] MEDS ORDERED: INSULIN NPH (ISOPHANE), HUMAN 100 UNIT/ML 3 ML SUBCUT SCH (08:00)
[2020-05-08 08:21] LABS: ABSOLUTE LYMPHOCYTES# (MANUAL) 0.6 10^3/uL (0.5-4.7); ABSOLUTE MONOCYTES # (MANUAL) 0.5 10^3/uL (0.1-1.4); BASOPHILS % (MANUAL) 0 % (0-2); EOSINOPHILS % (MANUAL) 0 % (0-6); LYMPHOCYTES % (MANUAL) 11 % (13-45); METAMYELOCYTES % (MANUAL) 1 % (0-1); MONOCYTES % (MANUAL) 10 % (3-13); NUCLEATED RED BLOOD CELLS 1 /100 WBC (0); SEGMENTED NEUTROPHILS % (MAN) 77 % (42-78); TOTAL CELLS COUNTED 100
[2020-05-08 08:22] LABS: ANISOCYTOSIS 1+; PLATELET COMMENT ADEQUATE; POIKILOCYTOSIS SLIGHT; POLYCHROMASIA 1+; TEAR DROP CELLS SLIGHT
[2020-05-08] MEDS: INSULIN LISPRO 100 UNIT/ML 3 ML VIAL SUBCUT SCH ×4 (08:24→22:17)
[2020-05-08] MEDS: ASCORBIC ACID 500 MG TABLET PO SCH ×2 (10:07→17:16)
[2020-05-08] MEDS: FUROSEMIDE INJ/PF 20 MG/2 ML SDV IV SCH (10:07)
[2020-05-08] MEDS: AMLODIPINE BESYLATE 2.5 MG TABLET PO SCH ×2 (10:07→22:16)
[2020-05-08] MEDS: CHOLECALCIFEROL (D3) 1,000 UNIT (25 MCG) TABLET PO SCH (10:07)
[2020-05-08] MEDS: DEXAMETHASONE SOD PHOS INJ 10 MG/1 ML VIAL IV SCH (10:07)
[2020-05-08] MEDS: CARVEDILOL 12.5 MG TABLET PO SCH ×2 (10:07→17:16)
[2020-05-08] MEDS: ZINC SULFATE 220 MG CAPSULE PO SCH (10:07)
--- NOTE | 2020-05-08 12:47 | PDOC PROGRESS REPORT ---
Subjective Progress Note for:: 05/08/20 Subjective:: Patient seen on morning rounds. Resting upright in chair comfortably. She states that overall she is feeling well with no complaints or changes from yesterday's visit. She is currently on 1 L NC but feels that she can transition to room air. Her last bowel movement was 2 days ago, this is not normal for her. Reason For Visit: HYPOXIA DUE TO COVID 19 Physical Exam Vital Signs: Temp Pulse Resp BP Pulse Ox 97.8 F 62 19 143/50 H 100 05/08/20 08:08 05/08/20 08:08 05/08/20 08:08 05/08/20 08:08 05/08/20 08:08 Intake & Output 05/07/20 05/08/20 05/09/20 06:59 06:59 06:59 Intake Total 500 2657 95 Output Total 5 Balance 500 632 95 Weight 119.7 kg General appearance: PRESENT: no acute distress, cooperative, morbidly obese Head exam: PRESENT: atraumatic, normocephalic Eye exam: PRESENT: EOMI. ABSENT: scleral icterus Mouth exam: PRESENT: moist, tongue midline Neck exam: PRESENT: full ROM. ABSENT: JVD Cardiovascular exam: PRESENT: RRR, +S1, +S2. ABSENT: clicks, diastolic murmur, gallop, rubs, systolic murmur Pulses: PRESENT: normal radial pulses GI/Abdominal exam: PRESENT: normal bowel sounds, soft. ABSENT: tenderness Extremities exam: PRESENT: full ROM, pedal edema Musculoskeletal exam: PRESENT: ambulatory, full ROM. ABSENT: deformity, dislocation Neurological exam: PRESENT: alert, awake, oriented to person, oriented to place, oriented to time, oriented to situation, CN II-XII grossly intact. ABSENT: motor sensory deficit Psychiatric exam: PRESENT: appropriate affect, normal mood Skin exam: PRESENT: dry, intact, warm Results Laboratory Results: 05/08/20 06:36 05/08/20 06:36 05/07/20 05/07/20 05/08/20 01:22 15:06 06:34 WBC RBC Hgb Hct MCV MCH MCHC RDW Plt Count Seg Neutrophils % Sodium Potassium Chloride Carbon Dioxide Anion Gap BUN Creatinine Est GFR ( Amer) Glucose Calcium Total Bilirubin AST Alkaline Phosphatase Total Protein Albumin Urine Color STRAW STRAW Urine Appearance CLEAR CLEAR Urine pH 5.0 5.0 Ur Specific [place] 1.008 1.010 Urine Protein NEGATIVE 30 H Urine Glucose (UA) 150 H >=500 H Urine Ketones NEGATIVE NEGATIVE Urine Blood NEGATIVE NEGATIVE Urine Nitrite NEGATIVE NEGATIVE Ur Leukocyte Esterase TRACE H NEGATIVE Urine WBC (Auto) 2 1 Urine RBC (Auto) 0 0 Blood Type A POSITIVE 05/08/20 05/08/20 06:36 06:36 WBC 4.9 RBC 3.56 L Hgb 10.9 L Hct 31.8 L MCV 89 MCH 30.5 MCHC 34.2 RDW 15.0 H Plt Count 344 Seg Neutrophils % Not Reportable Sodium 132.8 L Potassium 5.3 H Chloride 99 Carbon Dioxide 25 Anion Gap 9 BUN 63 H Creatinine 2.13 H Est GFR ( Amer) 28 L Glucose 362 H Calcium 8.5 Total Bilirubin 0.4 AST 26 Alkaline Phosphatase 75 Total Protein 6.1 L Albumin 3.4 L Urine Color Urine Appearance Urine pH Ur Specific [place] Urine Protein Urine Glucose (UA) Urine Ketones Urine Blood Urine Nitrite Ur Leukocyte Esterase Urine WBC (Auto) Urine RBC (Auto) Blood Type 05/06/20 05/06/20 05/06/20 19:45 19:45 19:45 Creatine Kinase 132 Troponin I 0.013 NT-Pro-B Natriuret Pep 1020 H 05/07/20 05:30 Creatine Kinase 97 Troponin I NT-Pro-B Natriuret Pep Impressions: Chest X-Ray 05/06/20 19:37 IMPRESSION: Mild pulmonary edema pattern, without pleural effusions or focal consolidation. Lung Scan-VQ NM 05/07/20 00:00 IMPRESSION: No definite perfusion defects on these limited anterior and posterior only views of the lungs. Assessment and Plan - Diagnosis (1) Acute respiratory failure with hypoxia Is this a current diagnosis for this admission?: Yes Plan: Patient was diagnosed with COVID-19 5 day ago in outpatient setting. On arrival oxygen saturation was 90%. O2 sat consistently >95% on 1L NC. Wean off O2 at this time. Monitor closely. Continue treating the underlying cause which is multifactorial. (2) COVID-19 Is this a current diagnosis for this admission?: Yes Plan: Was confirmed 5 days but to have a positive COVID-19 Wean off O2 at this time. Continue dexamethasone 6 mg daily Continue convulesant plasma Patient stable, cnt to hold remdesivir due to kidney function. Follow-up with ferritin, CK, CRP, LDH levels, monitor for improvement. Tylenol as needed for fever. (3) Chronic congestive heart failure Qualifiers: Heart failure type: unspecified Qualified Code(s): I50.9 - Heart failure, unspecified Is this a current diagnosis for this admission?: Yes Plan: Chest x-ray shows signs of pulmonary vascular congestion BNP was elevated 1020 on admission Echo note found in her chart and patient denies history of heart failure in the past Could be contributing to presenting symptoms Continue Lasix 20 mg IV every 12 hourly. Consider outpatient lasix tx following disposition. (4) Hyperkalemia Is this a current diagnosis for this admission?: Yes Plan: K= 5.3 today. Potentially secondary to underlying CKD versus elevated glucose. She is currently getting Lasix. Recheck potassium at 1400. Kayexalate if continues to be elevated. Continue to monitor on daily labs. (5) Elevated d-dimer Is this a current diagnosis for this admission?: Yes Plan: D-dimer on presentation was elevated to 1.78. Unable to obtain CTA due to advanced CKD. VQ scan without acute process. Stop Heparin drink. Initiate Heparin VTE prophylaxis. elevated D-dimer may be secondary to COVID. (6) CKD (chronic kidney disease), stage IV Is this a current diagnosis for this admission?: Yes Plan: Currently BUN/creatinine is around baseline Will dose medications renally and avoid nephrotoxic drugs Monitor daily BMP (7) DM type 2, uncontrolled, with retinopathy Is this a current diagnosis for this admission?: Yes Plan: Patient presents with hypoglycemia which was corrected Holding oral medications while admitted. Most recent Hem A1c 7.5% (04/16/2020). Patient is placed on a consistent carb diet. Reintroduce her home dose lantus. Accu-Cheks before meals and at bedtime with Humalog for sliding scale coverage. Hypoglycemia protocol in place. (8) Hyperlipidemia Qualifiers: Hyperlipidemia type: unspecified Qualified Code(s): E78.5 - Hyperlipidemia, unspecified Is this a current diagnosis for this admission?: Yes Plan: Continue home meds. (9) Hypertension Qualifiers: Hypertension type: essential hypertension Qualified Code(s): I10 - Essential (primary) hypertension Is this a current diagnosis for this admission?: Yes Plan: Consistently elevated in 140/50s Will resume home medications Low-sodium diet (10) Pressure ulcer of right foot, stage 2 Is this a current diagnosis for this admission?: Yes Plan: Daily dressing change, consult wound care (11) Morbid obesity Is this a current diagnosis for this admission?: Yes Plan: BMI 45.3 obese presentation Provide counseling including dietary change and exercise - Time Time Spent with patient: Less than 15 minutes Medications reviewed and adjusted accordingly: Yes Anticipated Discharge Disposition: Home with Home Health Anticipated Discharge Timeframe: within 48 hours
[2020-05-08] MEDS: HEPARIN SOD (PORCINE) 5,000 UNIT/ML 1 ML VIAL SUBCUT SCH ×2 (14:20→22:17)
[2020-05-08 15:34] LABS: ANION GAP 11 (5-19); BLOOD UREA NITROGEN 64 mg/dL (7-20); CALCIUM 8.7 mg/dL (8.4-10.2); CARBON DIOXIDE 25 mmol/L (22-30); CHLORIDE 96 mmol/L (98-107); GLUCOSE 328 mg/dL (75-110); POTASSIUM 5.9 mmol/L (3.6-5.0)
--- NOTE | 2020-05-08 17:26 | EKG REPORT ---
SEVERITY:- NORMAL ECG - SINUS RHYTHM : Confirmed by: Alexis Eddy MD 08-May-2020 17:26:12
[2020-05-08] MEDS ORDERED: SODIUM POLYSTYRENE SULFONATE 15 GM/60 ML PO ONE (17:30)
[2020-05-08] MEDS ORDERED: INSULIN REG, HUMAN 100 UNIT/ML 3 ML VIAL (PYX) IV ONE (18:15)
--- NOTE | 2020-05-08 21:32 | CDI QUERY ---
CDI Query CDI Review: We are seeking further clarification of documentation to reflect the severity of illness of your patient. Noted in Progress Notes: Chronic congestive heart failure Qualifiers: Heart failure type: unspecified Qualified Code(s): I50.9 - Heart failure, unspecified Is this a current diagnosis for this admission?: Yes Plan: Chest x-ray shows signs of pulmonary vascular congestion BNP was elevated 1020 Echo note found in her chart and patient denies history of heart failure in the past Could be contributing to presenting symptoms Continue Lasix 20 mg IV every 12 hourly. Consider outpatient lasix tx following disposition. Based on your medical judgement, can you further clarify in the Progress Notes: Type of heart failure: Systolic Diastolic Combined systolic/diastolic Other (please specify) None of the above / Not applicable - AND Severity of heart failure Acute, exacerbation, or decompensation Chronic Acute on chronic Other (please specify) None of the above / Not applicable Thank you for your consideration. YEE Meredith RN Clinical Pattern Stamper Physician Advisor [email or web address]
[2020-05-08] MEDS ORDERED: INSULIN GLARGINE,HUM.REC.ANLOG 1,000 UNIT/10 ML VIAL SUBCUT SCH ×2 (22:00)
[2020-05-08] MEDS: ASPIRIN 81 MG TABLET, CHEWABLE PO SCH (22:16)
[2020-05-08] MEDS: ATORVASTATIN CALCIUM 40 MG TABLET PO SCH (22:16)
[2020-05-08] MEDS: FAMOTIDINE 20 MG TABLET PO SCH (22:16)
--- NOTE | 2020-05-09 00:55 | RADIOLOGY REPORT (SQ) ---
CLINICAL HISTORY: fall/dizzy COMPARISON: None. TECHNIQUE: CT HEAD WITHOUT IV CONTRAST on 05/09/2020 12:00 AM CDT This exam was performed according to our departmental dose-optimization program, which includes automated exposure control, adjustment of the mA and/or kV according to patient size and/or use of iterative reconstruction technique. FINDINGS: There is no acute hemorrhage, mass effect or midline shift. Bell-white differentiation is preserved. There is no hydrocephalus. There is no significant volume loss for age. The calvarium is intact. Left globe is hyperdense. Maxillary sinuses are opacified. Left sphenoid sinus and bilateral anterior ethmoid air cells are opacified. The right frontal sinus is opacified. There is moderate thickening of the left frontal sinus. Mastoid air cells are clear. IMPRESSION: No definite acute intracranial findings. Hyperdense, abnormal appearing left globe. Diffuse sinus disease.
[2020-05-09 05:38] LABS: ABSOLUTE LYMPHOCYTES (AUTO) 0.7 10^3/uL (0.5-4.7); ABSOLUTE MONOCYTES (AUTO) 0.4 10^3/uL (0.1-1.4); ABSOLUTE NEUT (AUTO) 5.7 10^3/uL (1.7-8.2); BASOPHILS % (AUTO) 0.1 % (0-2); EOSINOPHILS % (AUTO) 0.1 % (0-6); HEMATOCRIT 33.4 % (36.0-47.0); HEMOGLOBIN 11.3 g/dL (12.0-15.5); LYMPHOCYTES % (AUTO) 9.9 % (13-45); MEAN CORPUSCULAR HEMOGLOBIN 29.9 pg (27.0-33.4); MEAN CORPUSCULAR HGB CONC 33.9 g/dL (32.0-36.0); MEAN CORPUSCULAR VOLUME 88 fl (80-97); MONOCYTES % (AUTO) 6.5 % (3-13); PLATELET COUNT 407 10^3/uL (150-450); RED BLOOD COUNT 3.78 10^6/uL (3.72-5.28); RED CELL DISTRIBUTION WIDTH 14.7 % (11.5-14.0); SEGMENTED NEUTROPHILS % (AUTO) 83.4 % (42-78); TOTAL CELLS COUNTED % (AUTO) 100 %; WHITE BLOOD COUNT 6.8 10^3/uL (4.0-10.5)
[2020-05-09 05:56] LABS: ALBUMIN 3.7 g/dL (3.5-5.0); ALKALINE PHOSPHATASE 78 U/L (38-126); ANION GAP 12 (5-19); ASPARTATE AMINO TRANSFERASE 33 U/L (14-36); BILIRUBIN,DIRECT 0.2 mg/dL (0.0-0.4); BILIRUBIN,TOTAL 0.4 mg/dL (0.2-1.3); BLOOD UREA NITROGEN 68 mg/dL (7-20); CALCIUM 8.9 mg/dL (8.4-10.2); CARBON DIOXIDE 23 mmol/L (22-30); CHLORIDE 100 mmol/L (98-107); GLUCOSE 236 mg/dL (75-110); POTASSIUM 5.5 mmol/L (3.6-5.0); TOTAL PROTEIN 6.9 g/dL (6.3-8.2)
[2020-05-09] MEDS: LEVOTHYROXINE SODIUM 0.075 MG TABLET PO SCH (05:56)
[2020-05-09] MEDS: LEVOTHYROXINE SODIUM 0.1 MG TABLET PO SCH (05:56)
[2020-05-09] MEDS: HEPARIN SOD (PORCINE) 5,000 UNIT/ML 1 ML VIAL SUBCUT SCH ×2 (05:56→13:01)
[2020-05-09] MEDS: INSULIN LISPRO 100 UNIT/ML 3 ML VIAL SUBCUT SCH ×2 (09:21→11:27)
[2020-05-09] MEDS: ZINC SULFATE 220 MG CAPSULE PO SCH (09:22)
[2020-05-09] MEDS: AMLODIPINE BESYLATE 2.5 MG TABLET PO SCH (09:22)
[2020-05-09] MEDS: CHOLECALCIFEROL (D3) 1,000 UNIT (25 MCG) TABLET PO SCH (09:22)
[2020-05-09] MEDS: DEXAMETHASONE SOD PHOS INJ 10 MG/1 ML VIAL IV SCH (09:22)
[2020-05-09] MEDS: ASCORBIC ACID 500 MG TABLET PO SCH (09:22)
[2020-05-09] MEDS: CARVEDILOL 12.5 MG TABLET PO SCH (09:22)
[2020-05-09] MEDS ORDERED: FUROSEMIDE 40 MG TABLET PO SCH (10:00)
--- NOTE | 2020-05-09 10:43 | PDOC DISCHARGE SUMMARY ---
Impression - Admit/DC Date/PCP Admission Date/Primary Care Provider: 05/07/20 08:17 JOSE FARAH MD Discharge Date: 05/09/20 - Discharge Diagnosis (1) Acute respiratory failure with hypoxia Is this a current diagnosis for this admission?: Yes (2) COVID-19 Is this a current diagnosis for this admission?: Yes (3) Chronic congestive heart failure Is this a current diagnosis for this admission?: Yes (4) CKD (chronic kidney disease), stage IV Is this a current diagnosis for this admission?: Yes (5) DM type 2, uncontrolled, with retinopathy Is this a current diagnosis for this admission?: Yes (6) Elevated d-dimer Is this a current diagnosis for this admission?: Yes (7) Hyperkalemia Is this a current diagnosis for this admission?: Yes (8) Hyperlipidemia Is this a current diagnosis for this admission?: Yes (9) Hypertension Is this a current diagnosis for this admission?: Yes (10) Morbid obesity Is this a current diagnosis for this admission?: Yes (11) Pressure ulcer of right foot, stage 2 Is this a current diagnosis for this admission?: Yes - Additional Information Resuscitation Status: Full Code Discharge Diet: Other (Comments) - Low-fat, low-salt, low potassium, diabetic diet Discharge Activity: Activity As Tolerated Referrals: [facility] [Outside] JOSE FARAH MD [Primary Care Provider] - 05/23/20 8:15 am (over the phone.) Prescriptions: Prednisone 10 mg PO ASDIR PRN #1 tab.ds.pk PRN Reason: Home Medications: Aspirin [Aspirin 81 mg Chewable Tablet] 81 mg PO QHS 12/13/11 Atorvastatin Calcium [Lipitor 40 mg Tablet] 40 mg PO QHS 12/13/11 Insulin Glargine,Hum.rec.anlog [Lantus] 70 unit SQ QHS 12/13/11 Insulin Aspart [Novolog Flexpen] 0 unit SUBCUT .SLD SCALE 04/15/20 Levothyroxine Sodium [Synthroid] 175 mcg PO Q6AM 04/15/20 Amlodipine Besylate [Norvasc 2.5 mg Tablet] 2.5 mg PO Q12 #60 tablet 04/16/20 Carvedilol [Coreg 12.5 mg Tablet] 25 mg PO BID 04/16/20 Cholecalciferol (Vitamin D3) [Vitamin D3 1000 Unit Tablet] 1,000 unit PO DAILY 05/07/20 Fenofibrate,Micronized [Fenofibrate] 134 mg PO DAILY 05/07/20 [place]-3/Dha/Epa/Fish Oil [Fish Oil 1,000 mg Softgel] 1 cap PO DAILY 05/07/20 Semaglutide [Ozempic] 0.5 mg SQ MO 05/07/20 Ascorbic Acid [Vitamin C 500 mg Tablet] 1,000 mg PO BID tablet 05/09/20 Prednisone 10 mg PO ASDIR PRN #1 tab.ds.pk 05/09/20 Zinc Sulfate [Zinc-220 Capsule] 220 mg PO DAILY capsule 05/09/20 History of Present Illiness History of Present Illness: GUERO NOBLE is a 70 year old female with a history of hypertension, CKD, hyperlipidemia, diabetes, hypothyroidism who was diagnosed with COVID-19 4 days back and was being managed symptomatically at home presents to ER this evening with worsening of shortness of breath since this morning. Patient reports that cough has worsened and has started having watery diarrhea. She also endorses generalized body aches and weakness but denies fever, chills, chest pain, nausea, vomiting, abdominal pain, dizziness. On arrival at the ER patient was saturating 90% on room air which improved to 100% with 2 L intranasal oxygen. Hospital Course Hospital Course: (1) Acute respiratory failure with hypoxia Is this a current diagnosis for this admission?: Yes Plan: Patient was diagnosed with COVID-19 5 day ago in outpatient setting. On arrival oxygen saturation was 90%. O2 sat consistently >95% on 1L NC. Wean off O2 at this time. Monitor closely. Continue treating the underlying cause which is multifactorial. (2) COVID-19 Is this a current diagnosis for this admission?: Yes Plan: Was confirmed 5 days but to have a positive COVID-19 Wean off O2 at this time. Continue dexamethasone 6 mg daily Continue convulesant plasma Patient stable, cnt to hold remdesivir due to kidney function. Follow-up with ferritin, CK, CRP, LDH levels, monitor for improvement. Tylenol as needed for fever. (3) Chronic congestive heart failure Qualifiers: Heart failure type: unspecified Qualified Code(s): I50.9 - Heart failure, unspecified Is this a current diagnosis for this admission?: Yes Plan: Chest x-ray shows signs of pulmonary vascular congestion BNP was elevated 1020 on admission Echo note found in her chart and patient denies history of heart failure in the past Could be contributing to presenting symptoms Continue Lasix 20 mg IV every 12 hourly. Consider outpatient lasix tx following disposition. No echocardiogram was found in the patient's chart. It is unclear as to the type. It was indicated that this is chronic. It is quite possibly mild marvin stolic dysfunction. Further evaluation as an outpatient would better be able to characterize. (4) Hyperkalemia Is this a current diagnosis for this admission?: Yes Plan: K= 5.3 today. Potentially secondary to underlying CKD versus elevated glucose. She is currently getting Lasix. Recheck potassium at 1400. Kayexalate if continues to be elevated. Continue to monitor on daily labs. (5) Elevated d-dimer Is this a current diagnosis for this admission?: Yes Plan: D-dimer on presentation was elevated to 1.78. Unable to obtain CTA due to advanced CKD. VQ scan without acute process. Stop Heparin drink. Initiate Heparin VTE prophylaxis. elevated D-dimer may be secondary to COVID. (6) CKD (chronic kidney disease), stage IV Is this a current diagnosis for this admission?: Yes Plan: Currently BUN/creatinine is around baseline Will dose medications renally and avoid nephrotoxic drugs Monitor daily BMP (7) DM type 2, uncontrolled, with retinopathy Is this a current diagnosis for this admission?: Yes Plan: Patient presents with hypoglycemia which was corrected Holding oral medications while admitted. Most recent Hem A1c 7.5% (04/16/2020). Patient is placed on a consistent carb diet. Reintroduce her home dose lantus. Accu-Cheks before meals and at bedtime with Humalog for sliding scale coverage. Hypoglycemia protocol in place. (8) Hyperlipidemia Qualifiers: Hyperlipidemia type: unspecified Qualified Code(s): E78.5 - Hyperlipidemia, unspecified Is this a current diagnosis for this admission?: Yes Plan: Continue home meds. (9) Hypertension Qualifiers: Hypertension type: essential hypertension Qualified Code(s): I10 - Essential (primary) hypertension Is this a current diagnosis for this admission?: Yes Plan: Consistently elevated in 140/50s Will resume home medications Low-sodium diet (10) Pressure ulcer of right foot, stage 2 Is this a current diagnosis for this admission?: Yes Plan: Daily dressing change, consult wound care (11) Morbid obesity Is this a current diagnosis for this admission?: Yes Plan: BMI 45.3 obese presentation Provide counseling including dietary change and exercise Physical Exam Vital Signs: Temp Pulse Resp BP Pulse Ox 97.8 F 66 21 H 171/79 H 98 05/09/20 08:51 05/09/20 08:51 05/09/20 08:51 05/09/20 08:51 05/09/20 08:51 Intake & Output 05/08/20 05/09/20 05/10/20 06:59 06:59 06:59 Intake Total 2657 1300 Output Total 5 0 Balance 632 1300 Weight 119.7 kg General appearance: PRESENT: no acute distress, cooperative, morbidly obese, well-developed Head exam: PRESENT: atraumatic, normocephalic Respiratory exam: PRESENT: clear to auscultation stephanie, symmetrical, unlabored. ABSENT: prolonged expiratory phas, rales, rhonchi, tachypnea, wheezes Cardiovascular exam: PRESENT: RRR, +S1, +S2, systolic murmur - 2/6. ABSENT: bradycardia, diastolic murmur, tachycardia GI/Abdominal exam: PRESENT: normal bowel sounds, soft, other - Protuberant abdomen. ABSENT: tenderness Rectal exam: PRESENT: deferred Gentrourinary exam: ABSENT: indwelling catheter Extremities exam: PRESENT: pedal edema, +1 edema Musculoskeletal exam: PRESENT: ambulatory Neurological exam: PRESENT: alert, awake, oriented to person, oriented to place, oriented to time, oriented to situation, CN II-XII grossly intact. ABSENT: altered Psychiatric exam: PRESENT: appropriate affect. ABSENT: agitated, anxious Focused psych exam: ABSENT: delusional, paranoid, restlessness Skin exam: PRESENT: other Additional comments: Leg ulcers. Not unwrapped today Results Laboratory Results: WBC 6.8 10^3/uL (4.0-10.5) 05/09/20 04:56 RBC 3.78 10^6/uL (3.72-5.28) 05/09/20 04:56 Hgb 11.3 g/dL (12.0-15.5) L 05/09/20 04:56 Hct 33.4 % (36.0-47.0) L 05/09/20 04:56 MCV 88 fl (80-97) 05/09/20 04:56 MCH 29.9 pg (27.0-33.4) 05/09/20 04:56 MCHC 33.9 g/dL (32.0-36.0) 05/09/20 04:56 RDW 14.7 % (11.5-14.0) H 05/09/20 04:56 Plt Count 407 10^3/uL (150-450) 05/09/20 04:56 Lymph % (Auto) 9.9 % (13-45) L 05/09/20 04:56 Esmeralda % (Auto) 6.5 % (3-13) 05/09/20 04:56 Eos % (Auto) 0.1 % (0-6) 05/09/20 04:56 Baso % (Auto) 0.1 % (0-2) 05/09/20 04:56 Absolute Neuts (auto) 5.7 10^3/uL (1.7-8.2) 05/09/20 04:56 Absolute Lymphs (auto) 0.7 10^3/uL (0.5-4.7) 05/09/20 04:56 Absolute Monos (auto) 0.4 10^3/uL (0.1-1.4) 05/09/20 04:56 Absolute Eos (auto) 0.0 10^3/uL (0.0-0.6) 05/09/20 04:56 Absolute Basos (auto) 0.0 10^3/uL (0.0-0.2) 05/09/20 04:56 Total Counted 100 05/08/20 06:36 Seg Neutrophils % 83.4 % (42-78) H 05/09/20 04:56 Seg Neuts % (Manual) 77 % (42-78) 05/08/20 06:36 Lymphocytes % (Manual) 11 % (13-45) L 05/08/20 06:36 Atypical Lymphs % 1 % (0) 05/08/20 06:36 Monocytes % (Manual) 10 % (3-13) 05/08/20 06:36 Eosinophils % (Manual) 0 % (0-6) 05/08/20 06:36 Basophils % (Manual) 0 % (0-2) 05/08/20 06:36 Metamyelocytes % 1 % (0-1) 05/08/20 06:36 Abs Neuts (Manual) 3.8 10^3/uL (1.7-8.2) 05/08/20 06:36 Abs Lymphs (Manual) 0.6 10^3/uL (0.5-4.7) 05/08/20 06:36 Abs Monocytes (Manual) 0.5 10^3/uL (0.1-1.4) 05/08/20 06:36 Absolute Eos (Manual) 0.0 10^3/uL (0.0-0.6) 05/08/20 06:36 Abs Basophils (Manual) 0.0 10^3/uL (0.0-0.2) 05/08/20 06:36 Nucleated RBCs 1 /100 WBC (0) 05/08/20 06:36 Platelet Comment ADEQUATE 05/08/20 06:36 Polychromasia 1+ 05/08/20 06:36 Poikilocytosis SLIGHT 05/08/20 06:36 Basophilic Stippling PRESENT 05/08/20 06:36 Anisocytosis 1+ 05/08/20 06:36 Tear Drop Cells SLIGHT 05/08/20 06:36 PT 14.5 SEC (11.4-15.4) 05/07/20 08:55 INR 1.11 05/07/20 08:55 APTT 125.0 SEC (23.5-35.8) H 05/08/20 10:38 D-Dimer 0.84 ug/mL (0.00-0.50) H 05/08/20 10:38 Sodium 134.8 mmol/L (137-145) L 05/09/20 04:56 Potassium 5.5 mmol/L (3.6-5.0) H 05/09/20 04:56 Chloride 100 mmol/L (98-107) 05/09/20 04:56 Carbon Dioxide 23 mmol/L (22-30) 05/09/20 04:56 Anion Gap 12 (5-19) 05/09/20 04:56 BUN 68 mg/dL (7-20) H 05/09/20 04:56 Creatinine 2.19 mg/dL (0.52-1.25) H 05/09/20 04:56 Est GFR ( Amer) 27 (>60) L 05/09/20 04:56 Est GFR (MDRD) Non-Af 22 (>60) L 05/09/20 04:56 Glucose 236 mg/dL (75-110) H 05/09/20 04:56 POC Glucose 244 mg/dL (70-110) H 05/09/20 08:44 Calcium 8.9 mg/dL (8.4-10.2) 05/09/20 04:56 Phosphorus 2.9 mg/dL (2.5-4.5) 05/06/20 19:45 Magnesium 2.3 mg/dL (1.6-2.3) 05/06/20 19:45 Ferritin 63.20 ng/mL (11.1-264.0) 05/07/20 05:30 Total Bilirubin 0.4 mg/dL (0.2-1.3) 05/09/20 04:56 Direct Bilirubin 0.2 mg/dL (0.0-0.4) 05/09/20 04:56 Neonat Total Bilirubin Not Reportable 05/09/20 04:56 Neonat Direct Bilirubin Not Reportable 05/09/20 04:56 Neonat Indirect Bili Not Reportable 05/09/20 04:56 AST 33 U/L (14-36) 05/09/20 04:56 ALT 31 U/L (<35) 05/09/20 04:56 Alkaline Phosphatase 78 U/L (38-126) 05/09/20 04:56 Lactate Dehydrogenase 193 U/L (120-246) 05/07/20 05:30 Creatine Kinase 97 U/L (30-135) 05/07/20 05:30 Troponin I 0.013 ng/mL 05/06/20 19:45 C-Reactive Protein 47.9 mg/L (<10.0) H 05/07/20 05:30 NT-Pro-B Natriuret Pep 1870 pg/mL (<125) H 05/08/20 14:26 Total Protein 6.9 g/dL (6.3-8.2) 05/09/20 04:56 Albumin 3.7 g/dL (3.5-5.0) 05/09/20 04:56 Urine Color STRAW 05/08/20 06:34 Urine Appearance CLEAR 05/08/20 06:34 Urine pH 5.0 (5.0-9.0) 05/08/20 06:34 Ur Specific [place] 1.010 05/08/20 06:34 Urine Protein 30 mg/dL (NEGATIVE) H 05/08/20 06:34 Urine Glucose (UA) >=500 mg/dL (NEGATIVE) H 05/08/20 06:34 Urine Ketones NEGATIVE mg/dL (NEGATIVE) 05/08/20 06:34 Urine Blood NEGATIVE (NEGATIVE) 05/08/20 06:34 Urine Nitrite NEGATIVE (NEGATIVE) 05/08/20 06:34 Urine Bilirubin NEGATIVE (NEGATIVE) 05/08/20 06:34 Urine Urobilinogen NEGATIVE mg/dL (<2.0) 05/08/20 06:34 Ur Leukocyte Esterase NEGATIVE (NEGATIVE) 05/08/20 06:34 Urine WBC (Auto) 1 /HPF 05/08/20 06:34 Urine RBC (Auto) 0 /HPF 05/08/20 06:34 Squamous Epi Cells Auto <1 /HPF 05/08/20 06:34 Urine Ascorbic Acid NEGATIVE (NEGATIVE) 05/08/20 06:34 Blood Type A POSITIVE 05/07/20 01:22 05/06/20 05/06/20 05/08/20 19:45 19:45 14:26 Troponin I 0.013 NT-Pro-B Natriuret Pep 1020 H 1870 H Impressions: Chest X-Ray 05/06/20 19:37 IMPRESSION: Mild pulmonary edema pattern, without pleural effusions or focal consolidation. Lung Scan-VQ NM 05/07/20 00:00 IMPRESSION: No definite perfusion defects on these limited anterior and posterior only views of the lungs. Head CT 05/09/20 00:00 IMPRESSION: No definite acute intracranial findings. Hyperdense, abnormal appearing left globe. Diffuse sinus disease. Plan Health Concerns: Multiple comorbidities with acute episode of coronavirus infection causing mild respiratory failure with hypoxia Plan of Treatment: Complete prednisone taper as an outpatient. Follow-up with PCP or nephrology to recheck laboratory studies post hospitalization Goals: Regain control of diabetes after steroids completed. Return to baseline for potassium and renal function. Time Spent: Greater than 30 Minutes Stroke Is this a Stroke Patient?: No Acute Heart Failure Is this a Heart Failure Patient?: No
[2020-05-09 13:16] VITALS: BP 159/59
[2020-05-09] MEDS ORDERED: INSULIN REG, HUMAN 100 UNIT/ML 3 ML VIAL (PYX) IV ONE (18:30)
== END 2020-05-09 13:16 | disposition home health service (06) | DRG 177 ==
LOC: ER 19:20 → INTOOBSV 05-07 00:28 → EH 05-07 00:28 → 3W 05-07 03:45 → OBSVTOIN 05-07 08:17 → 3N 05-08 15:02
PROVIDERS: ADMIT Student in an Organized Health Care Education/Training Program; ATTEND Hospitalist
PROC: XW13325 Transfusion of Convalescent Plasma (Nonautologous) into Peripheral Vein, Percutaneous Approach, New Technology Group 5 (ICD-10-PCS; principal; 2020-05-08)
DX: U07.1 COVID-19 (principal); J96.01 Acute respiratory failure with hypoxia; I13.0 Hypertensive heart and chronic kidney disease with heart failure and stage 1 through stage 4 chronic kidney disease, or unspecified chronic kidney disease; N17.9 Acute kidney failure, unspecified; N18.4 Chronic kidney disease, stage 4 (severe); Z68.42 Body mass index [BMI] 45.0-49.9, adult; I50.9 Heart failure, unspecified; E11.22 Type 2 diabetes mellitus with diabetic chronic kidney disease; E86.0 Dehydration; E03.9 Hypothyroidism, unspecified; D63.1 Anemia in chronic kidney disease; E78.5 Hyperlipidemia, unspecified; E11.319 Type 2 diabetes mellitus with unspecified diabetic retinopathy without macular edema; E66.01 Morbid (severe) obesity due to excess calories; L89.892 Pressure ulcer of other site, stage 2; E87.5 Hyperkalemia; R79.1 Abnormal coagulation profile; E11.649 Type 2 diabetes mellitus with hypoglycemia without coma; F03.90 Unspecified dementia, unspecified severity, without behavioral disturbance, psychotic disturbance, mood disturbance, and anxiety; Z85.528 Personal history of other malignant neoplasm of kidney; Z83.3 Family history of diabetes mellitus; Z82.49 Family history of ischemic heart disease and other diseases of the circulatory system; Z90.5 Acquired absence of kidney; Z79.4 Long term (current) use of insulin
CPT/HCPCS: 36415; 36430; 70450; 71045; 78580; 80048; 80053; 81001; 82550; 82728; 82962; 83615; 83735; 83880; 84100; 84132; 84484; 85025; 85379; 85610; 85730; 86140; 86900; 86901; 87040; 93005; 93010; 96360; 96361; 96372; 99285; A9540; J1100; J1644; J1650; J1815; J1940; J3490; J7040; Q9969; S0119

== ENCOUNTER → 2020-05-17 | Outpatient (CLI) | payer MEDICARE, BC, OTHER ==
[2020-05-17 09:01] LABS: APPEARANCE,URINE SLIGHTLY-CLOUDY; BILIRUBIN,URINE NEGATIVE (NEGATIVE); COLOR,URINE YELLOW; GLUCOSE, URINE NEGATIVE (NEGATIVE); KETONES,URINE NEGATIVE (NEGATIVE); LEUKOCYTE ESTERASE,URINE LARGE (NEGATIVE); NITRITE,URINE NEGATIVE (NEGATIVE); PROTEIN,URINE 30 mg/dL (NEGATIVE); URINE SPECIFIC GRAVITY 1.012; UROBILINOGEN,URINE NEGATIVE mg/dL (<2.0)
[2020-05-17 09:01] LABS: HEMATOCRIT 37.4 % (36.0-47.0); HEMOGLOBIN 12.6 g/dL (12.0-15.5); MEAN CORPUSCULAR HEMOGLOBIN 29.9 pg (27.0-33.4); MEAN CORPUSCULAR HGB CONC 33.7 g/dL (32.0-36.0); MEAN CORPUSCULAR VOLUME 89 fl (80-97); PLATELET COUNT 363 10^3/uL (150-450); RED BLOOD COUNT 4.21 10^6/uL (3.72-5.28); RED CELL DISTRIBUTION WIDTH 15.5 % (11.5-14.0); WHITE BLOOD COUNT 9.1 10^3/uL (4.0-10.5)
[2020-05-17 09:26] LABS: ALBUMIN 3.4 g/dL (3.5-5.0); ANION GAP 8 (5-19); BLOOD UREA NITROGEN 70 mg/dL (7-20); CARBON DIOXIDE 31 mmol/L (22-30); CHLORIDE 95 mmol/L (98-107); GLUCOSE 68 mg/dL (75-110); POTASSIUM 5.3 mmol/L (3.6-5.0)
[2020-05-17 09:37] LABS: UR PRO/CREAT RATIO RESULT 0.4 mg/mg (0.0-0.2); URINE CREATININE 80.4 mg/dL (15-278); URINE PROTEIN 30.5 mg/dL (<12)
== END ==
LOC: OD 07:49
PROVIDERS: ATTEND Physician Assistant Medical
DX: N18.4 Chronic kidney disease, stage 4 (severe) (principal); R80.1 Persistent proteinuria, unspecified
CPT/HCPCS: 36415; 80069; 81001; 82570; 83970; 84156; 85027

== ENCOUNTER → 2020-07-12 | Outpatient (CLI) | payer MEDICARE, BC ==
[2020-07-12 12:47] LABS: ABSOLUTE EOSINOPHILS # (AUTO) 0.2 10^3/uL (0.0-0.6); ABSOLUTE LYMPHOCYTES (AUTO) 1.3 10^3/uL (0.5-4.7); ABSOLUTE MONOCYTES (AUTO) 0.6 10^3/uL (0.1-1.4); ABSOLUTE NEUT (AUTO) 5.4 10^3/uL (1.7-8.2); BASOPHILS % (AUTO) 0.3 % (0-2); EOSINOPHILS % (AUTO) 3.1 % (0-6); HEMATOCRIT 32.3 % (36.0-47.0); HEMOGLOBIN 10.9 g/dL (12.0-15.5); LYMPHOCYTES % (AUTO) 17.3 % (13-45); MEAN CORPUSCULAR HEMOGLOBIN 29.7 pg (27.0-33.4); MEAN CORPUSCULAR HGB CONC 33.8 g/dL (32.0-36.0); MEAN CORPUSCULAR VOLUME 88 fl (80-97); MONOCYTES % (AUTO) 7.4 % (3-13); PLATELET COUNT 326 10^3/uL (150-450); RED BLOOD COUNT 3.67 10^6/uL (3.72-5.28); RED CELL DISTRIBUTION WIDTH 16.3 % (11.5-14.0); SEGMENTED NEUTROPHILS % (AUTO) 71.9 % (42-78); TOTAL CELLS COUNTED % (AUTO) 100 %; WHITE BLOOD COUNT 7.5 10^3/uL (4.0-10.5)
[2020-07-12 13:09] LABS: ANION GAP 8 (5-19); BLOOD UREA NITROGEN 65 mg/dL (7-20); CALCIUM 9.3 mg/dL (8.4-10.2); CARBON DIOXIDE 31 mmol/L (22-30); CHLORIDE 96 mmol/L (98-107); GLUCOSE 75 mg/dL (75-110); POTASSIUM 4.5 mmol/L (3.6-5.0)
== END ==
LOC: OD 11:50
PROVIDERS: ATTEND Specialist
DX: R07.9 Chest pain, unspecified (principal); R06.00 Dyspnea, unspecified; I12.9 Hypertensive chronic kidney disease with stage 1 through stage 4 chronic kidney disease, or unspecified chronic kidney disease; E08.22 Diabetes mellitus due to underlying condition with diabetic chronic kidney disease; N18.9 Chronic kidney disease, unspecified; E78.5 Hyperlipidemia, unspecified; G47.30 Sleep apnea, unspecified; E03.9 Hypothyroidism, unspecified; E66.01 Morbid (severe) obesity due to excess calories; Z79.899 Other long term (current) drug therapy
CPT/HCPCS: 36415; 80048; 83735; 85025